=== PATIENT | male | born 1980 | race Caucasian/White ===

== ENCOUNTER 2019-07-09 17:59 | Inpatient (IN) ==
[2019-07-09 18:40] LABS: Basophils # (auto) 0.03 K/uL (0-0.2); Basophils % (auto) 0.2 %; Eosinophils # (auto) 0.26 K/uL (0-0.5); Eosinophils % (auto) 2.1 %; Immature Granulocytes # (auto) 0.05 K/uL (0.00-0.02); Immature Granulocytes % (auto) 0.4 %; Lymphocytes # (auto) 1.75 K/uL (1.2-3.4); Lymphocytes % (auto) 14.4 %; Mean Corpuscular Hgb Conc 34.1 g/dL (32-36); Mean Corpuscular Volume 75.6 fL (80-100); Mean Platelet Volume 8.4 fL (7.4-10.4); Monocytes # (auto) 0.82 K/uL (0.11-0.59); Monocytes % (auto) 6.8 %; Neutrophils # (auto) 9.23 K/uL (1.4-6.5); Neutrophils % (auto) 76.1 %; Platelet Count 283 K/uL (130-400); RDW Standard Deviation 43.8 fL (36.4-46.3); Red Blood Count 5.82 M/uL (4.7-6.1); White Blood Count 12.14 K/uL (4.8-10.8)
--- NOTE | 2019-07-09 18:56 | XRay Report ---
XR chest 2V routine CLINICAL HISTORY: Shortness of breath COMPARISON STUDY: No previous studies for comparison. FINDINGS: There is a large left pleural effusion with associated left lung airspace opacities. There is a suspected 14 mm right middle lung zone pulmonary nodule. There is mild right lung interstitial t hickening. CT scanning is recommended in follow-up.[ IMPRESSION: 1. Large left pleural effusion with associated left lung atelectasis/consolidation 2. Suspected 14 mm right midlung zone pulmonary nodule. CT scanning is recommended in follow-up. Electronically signed by: Nabil Fox M.D. 07/09/2019 6:54 PM
[2019-07-09 18:58] LABS: Alanine Aminotransferase 22 U/L (12-78); Albumin Level 3.4 gm/dl (3.4-5.0); Aspartate Aminotransferase 11 U/L (15-37); BUN Creatinine Ratio 15.3 (10-20); Blood Urea Nitrogen 16 mg/dl (7-18); Calcium 9.2 mg/dl (8.5-10.1); Carbon Dioxide 26 mmol/L (21-32); Chloride 103 mmol/L (98-107); Creatinine Clr Calc Pharmacy 180.4 ml/min; Est GFR (African American) 106.3; Est GFR (Non-African American) 91.7; Glucose 182 mg/dl (70-99); Magnesium 2.4 mg/dl (1.8-2.4); Potassium 3.7 mmol/L (3.5-5.1); Sodium 136 mmol/L (136-145)
[2019-07-09 19:01] LABS: D Dimer 930 ug/L FEU (0-500)
[2019-07-09 19:03] LABS: Albumin Globulin Ratio 0.8 (0.9-2); Alkaline Phosphatase 119 U/L (45-117); Bilirubin,Total 0.4 mg/dl (0.2-1); Globulin 4.3 gm/dl (2.5-4.0); NT Pro B Type Natriuretic Pept 37 pg/ml (0-450); Total Protein 7.7 gm/dl (6.4-8.2); Troponin I < 0.015 ng/ml (0-0.045)
[2019-07-09 19:29] LABS: Lyme Ab IgM w/WB Rflx Negative (Negative)
[2019-07-09 19:30] LABS: Lyme Ab IgG w/WB Rflx Negative (Negative)
[2019-07-09] MEDS ORDERED: OPTIRAY 320 125ml IV PRN (19:51)
--- NOTE | 2019-07-09 20:17 | CT Scan Report ---
CT ANGIOGRAM OF THE CHEST CLINICAL HISTORY: Shortness of breath. Abnormal chest x-ray. Left pleural effusion. COMPARISON STUDY: Chest x-ray dated 07/09/2019 TECHNIQUE: Following the IV administration of 113 mL of Optiray-320, CT angiogram of the thorax was p erformed from the thoracic inlet to the lung bases utilizing the pulmonary embolus protocol. Images a re reviewed in the axial, sagittal, and coronal planes. IV contrast was administered without complica tion. MIP imaging was performed. A dose lowering technique was utilized adhering to the principles o f ALARA. CT DOSE: 3101.63 mGy.cm FINDINGS: No pathologically enlarged axillary mediastinal or hilar lymph nodes were visualized. There was no evidence of thoracic aortic dilatation. There were no pulmonary artery filling defects to indicate acute pulmonary embolism. There is a large left pleural effusion There are greater than 20 right lung pulmonary nodules, the largest of which measures 18 mm. There is left lung compressive atelectasis secondary to the large effusion. This makes evaluation of the left lung parenchyma limited. At least 2 left lung pulmonary nodules are suspected. IMPRESSION: 1. Large left pleural effusion with left lung compressive atelectasis 2. Multiple pulmonary nodules. Metastatic disease is the diagnosis of exclusion. 3. No evidence of acute pulmonary embolism Electronically signed by: Nabil Fox M.D. 07/09/2019 8:15 PM
--- NOTE | 2019-07-09 20:22 | CT Scan Report ---
CT abd pelvis IV con only CLINICAL HISTORY: Possible metastatic disease. Right lung pulmonary nodules. Large left pleural effus ion. Shortness of breath. COMPARISON STUDY: None. TECHNIQUE: Patient was scanned in a dynamic helical fashion during intravenous administration of 113 cc of Optiray 320 A dose lowering technique was utilized adhering to the principles of ALARA. CT DOSE: FINDINGS: Lower chest: There are multiple right lower lobe pulmonary nodules. There is a large left pleural eff usion. Liver: The contrast-enhanced liver is normal in size, contour, and attenuation. There is no intrahepa tic biliary ductal dilatation. The hepatic veins and portal veins are patent. Gallbladder: Surgically absent Spleen: The spleen is enlarged measuring 21 cm. Pancreas: Unremarkable. Adrenal glands: Unremarkable. Kidneys: There is an 8.5 cm lower pole left renal mass. This must be viewed as suspicious for a renal cell carcinoma. There is no hydronephrosis. No right renal lesions are delineated Bowel: There are no transition zones to indicate bowel obstruction. There is colonic diverticulosis. There are no acute peridiverticular inflammatory changes. The appendix appears normal. Peritoneum: There is no intraperitoneal free air or abdominal ascites. Vasculature: The abdominal aorta is normal in course and caliber. Adenopathy: Bilateral iliac chain lymph nodes are the upper limits of normal in size Pelvic viscera: The bladder, and pelvic viscera are unremarkable. Skeletal structures: There is a 3.6 cm destructive L3 lesion with minimal epidural extension. The fin dings are suspicious for a metastatic lesion. IMPRESSION: 1. Large left pleural effusion 2. Multiple right lung pulmonary nodules suspicious for metastatic disease 3. 8.5 cm lower pole left renal mass suspicious for renal cell carcinoma 4. 3.6 cm destructive L3 lesion with minimal epidural extension. The findings are suspicious for a me tastatic deposit Electronically signed by: Nabil Fox M.D. 07/09/2019 8:21 PM
--- NOTE | 2019-07-09 20:27 | CT Scan Report ---
CT lumbar spine wo con CT DOSE: CLINICAL HISTORY: worsening back pain TECHNIQUE: Helical images were acquired in transverse plane. Reformatted sagittal and coronal images were reviewed. A dose lowering technique was utilized adhering to the principles of ALARA. CONTRAST: No contrast was administered COMPARISON STUDY: None. FINDINGS: L1-2 level: There is no evidence of significant disc bulge or focal herniation. There is no evidence of spinal or foraminal stenosis. L2-3 level: There is a minimal circumferential disc bulge. There is no spinal or foraminal stenosis L3-4 level: There is a 3.5 cm L3 lytic focus suspicious for a metastatic deposit. There is minimal ep idural extension. There is minimal spinal canal narrowing. There is no significant foraminal stenosis L4-5 level: There is a prominent posterior disc osteophyte complex. There is moderate spinal stenosis . L5-S1 level: There is a prominent posterior disc osteophyte complex. There is mild spinal canal narro wing. IMPRESSION: 1. 3.5 cm L3 lytic focus suspicious for a metastatic deposit. There is minimal epidural extension 2. Multilevel spondylytic changes with prominent posterior disc osteophyte complexes at the L4-5 and L5-S1 levels Electronically signed by: Nabil Fox M.D. 07/09/2019 8:25 PM
[2019-07-09] MEDS ORDERED: MoRPHine SULFATE 4 MG/ML 1 ML CARP\\VIAL ONE (20:30)
[2019-07-09] MEDS ORDERED: MoRPHine SULFATE 4 MG/ML 1 ML CARP\\VIAL IV PRN (21:21)
[2019-07-09] MEDS ORDERED: PROMETHAZINE HCL 12.5 MG in SODIUM CHLORIDE 0.9% 50 ML IV PRN (21:21)
--- NOTE | 2019-07-09 21:54 | History & Physical Report ---
Date of Service July 09, 2019 Assessment & Plan (1) Metastatic cancer: (2) Pleural effusion: (3) Left-sided back pain: This is a 38-year-old male who has significant past medical history of T2DM, HTN, morbid obesity who presents to [facility] ED secondary to left low back pain x2 months. Patient had trialed 2 months of outpatient conservative treatment with NSAIDs, prednisone, gabapentin, chiropractor and physical therapy. Presents to ED today with significant left low back pain and pronounced shortness of breath x2 days. Work-up in ED revealed a 3.5 cm L3 lytic lesion concerning for metastatic deposit. Given this finding further work-up was obtained. Chest x-ray reveals a large left pleural effusion with compressive atelectasis and multiple right pulmonary nodules. CTA of chest: Revealed greater than 28 right lung pulmonary nodules, largest measuring 18 mm in few left lung pulmonary nodule suspected. Again left large pleural effusion seen. CT abdomen pelvis revealed 8.5 cm left renal mass concerning for renal cell carcinoma. Admit patient to medical floor Consult thoracic/pulmonary for thoracentesis of large left pleural effusion and sent for analysis Obtain adequate pain control Supplemental oxygen as needed Initiate bowel regimen to prevent constipation with narcotic We will need to obtain oncology evaluation Please refer to Dr. Kessler addendum for details regarding assessment and plan (4) Diabetes: A1c 7.1 Recently had been on prednisone taper therefore blood glucose elevated hold metformin and jardiance lantus/novolog per protocol (5) HTN (hypertension): Previously on lisinopril, has since been discontinued secondary to improved blood pressure control per patient Monitor (6) Morbid obesity with BMI of 45.0-49.9, adult: BMI 48.6 Lifestyle modifications (7) DVT prophylaxis: Per Dr. Kessler Disposition: to be determined Follow up: PCP Dr. Black upon discharge Patient was seen and examined in collaboration with Dr. Kessler, please see addendum History of Present Illness Chief Complaint: Left lower back pain x2 months. Primary Care Provider: Terry Black MD This is a 38-year-old male who has significant past medical history of T2DM, HTN, morbid obesity who presents to [facility] ED secondary to left low back pain x2 months. Patient states he has been dealing with constant left low back pain that radiates down the lateral aspect of left leg. Pain is worse with movement, standing or going to sit down, worse at night. He is tried numerous jfxa-wlo-lyrwtlo modalities including NSAIDs, muscle relaxers, chiropractor and PT, lidocaine patches without relief. He denies any numbness or tingling. No loss of bowel or bladder or saddle anesthesia. Over the past 2 days he has notably been getting increasingly short of breath at rest and with exertion and dry cough. Coughing makes pain worse. Denies fever, chills, sweats, lightheadedness, dizziness, syncope, chest pain, palpitations, hemoptysis, nausea, vomiting, diarrhea, dysuria, hematuria, increased urgency or frequency with urination. His appetite is otherwise been normal he denies any weight loss. Allergies Allergy/AdvReac Type Severity Reaction Status Date / Time No Known Allergies Allergy Verified 07/09/19 18:27 Home Medications Home Medications Medication Instructions Recorded Confirmed Type acetaminophen [Tylenol Extra 1,000 mg PO Q6H PRN 06/28/19 07/09/19 History Strength] empagliflozin [Jardiance] 25 mg PO DAILY 06/28/19 07/09/19 History lidocaine [Lidoderm] 1 patch TOP DAILY #10 ea 06/28/19 07/09/19 Rx metformin 1,000 mg PO BID 06/28/19 07/09/19 History cyclobenzaprine 10 mg PO TID PRN 07/09/19 07/09/19 History gabapentin 300 mg PO TID 07/09/19 07/09/19 History ibuprofen 800 mg PO Q8H PRN 07/09/19 07/09/19 History Past Med/Surg History Medical History Morbid obesity with BMI of 45.0-49.9, adult (Chronic) HTN (hypertension) (Chronic) Diabetes (Chronic) Surgical History History of cholecystectomy (Chronic) History of arthroscopic knee surgery (Chronic) Family History Father No problems noted. 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 Physical Exam Physical Exam: Gen: Morbidly obese male, sitting up in bed, dyspneic with conversation, on O2 via nasal cannula, pleasant Head: Normocephalic, Atraumatic Eyes: Sclera normal, no conjunctival injection, PERRLA, EOMI ENT: Gross hearing intact, normal pharynx, mucous membranes moist Neck: supple, no adenopathy, No JVD, no bruit, Resp: Absent breath sounds on left side, right lung clear to auscultation,, no wheeze, rales, rhonchi. 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 Extremities: No edema bilaterally Skin: warm, moist, no rash, negative turgor, cap refill < 2sec Neuro: Alert and oriented x 3, speech normal, good mood/affect, cran nerve 2-12 intact grossly : deferred Results & Data Vital Signs (Past 12 Hours) Vital Signs Temp Pulse Pulse Resp BP BP Pulse Ox 07/09/19 21:12 95 07/09/19 21:00 88 L 07/09/19 20:33 108 H 18 160/97 H 93 07/09/19 18:59 111 H 18 138/101 H 94 07/09/19 18:01 36.4 C L 106 H 22 197/107 H 94 Laboratory Results Short CBC 07/09/19 Range/Units 18:30 WBC 12.14 H (4.8-10.8) K/uL Hgb 15.0 (14.0-18.0) g/dL Hct 44.0 (42-52) % Plt Count 283 (130-400) K/uL BMP 07/09/19 18:30 Sodium 136 Potassium 3.7 Chloride 103 Carbon Dioxide 26 BUN 16 Creatinine 1.03 Glucose 182 H Calcium 9.2 Cardiac Enzymes 07/09/19 Range/Units 18:30 Troponin I < 0.015 (0-0.045) ng/ml Liver Function 07/09/19 Range/Units 18:30 Total Bilirubin 0.4 (0.2-1) mg/dl AST 11 L (15-37) U/L ALT 22 (12-78) U/L Alkaline Phosphatase 119 H (45-117) U/L Albumin 3.4 (3.4-5.0) gm/dl Diagnostic Findings Lumbar Spine CT: IMPRESSION: 1. 3.5 cm L3 lytic focus suspicious for a metastatic deposit. There is minimal epidural extension 2. Multilevel spondylytic changes with prominent posterior disc osteophyte complexes at the L4-5 and L5-S1 levels Chest CTA: IMPRESSION: 1. Large left pleural effusion with left lung compressive atelectasis 2. Multiple pulmonary nodules. Metastatic disease is the diagnosis of exclusion. 3. No evidence of acute pulmonary embolism Abd/pelvis CT: IMPRESSION: 1. Large left pleural effusion 2. Multiple right lung pulmonary nodules suspicious for metastatic disease 3. 8.5 cm lower pole left renal mass suspicious for renal cell carcinoma 4. 3.6 cm destructive L3 lesion with minimal epidural extension. The findings are suspicious for a metastatic deposit CXR: IMPRESSION: 1. Large left pleural effusion with associated left lung atelectasis/consolidation 2. Suspected 14 mm right midlung zone pulmonary nodule. CT scanning is recommended in follow-up. Medications Administered Ioversol (Optiray 320 125ml) 113 ml IV ONCE PRN PRN Reason: Interaction Checking Stop: 07/13/19 19:50 Last Admin: 07/09/19 19:51 Dose: 113 ml Documented by: [id number] Morphine Sulfate (Morphine Sulfate) 4 mg IV Q4H PRN PRN Reason: Pain Stop: 07/23/19 21:20 Last Admin: 07/09/19 21:56 Dose: 4 mg Documented by: [id number] Discontinued Medications Morphine Sulfate (Morphine Sulfate) Confirm Administered Dose 4 mg .ROUTE .STK- MED ONE Stop: 07/09/19 20:31 Last Admin: 07/09/19 20:32 Dose: 4 mg Documented by: [id number] Code Status & VTE Plan Code Status Full Code VTE Prophylaxis Plan VTE Prophylaxis will be ordered: Yes Supervising Physician Co-Signing Physician Notes IM ATTENDING : Patient seen and examined. History obtained from patient and records. Preceding documentation by Ms. Nelli Elena PA-C reviewed. FINAL ASSESSMENT AND PLAN as follows : Acute hypoxemic respiratory failure secondary to left pleural effusion likely malignant given probable L renal malignancy Possible lung mets Back pain secondary to probable spine mets Hypertension, elevated secondary discomfort DM 2, on oral medications, reasonable control as of recent outpatient hemoglobin A1c of 7.25 Mar 2019 Past tobacco abuse Medical telemetry Supplemental O2 Baseline ABG Pulmonary consult in a.m. RE left pleural effusion May need CT surgery, Oncology, Radiation Oncology/Pain Management consultations inpatient. Initiate Fentanyl patch for probable cancer pain given partial response to narcotics given at the ER. Resume prior outpatient lisinopril Rx for BP control basal insulin, ISS BG goal 1 40-1 80, update hemoglobin A1c DVT prophylaxis. SCDs RE possible spinal mets Full code
[2019-07-09 22:07] LABS: Allen Test Pos (Pos); Base Excess ABG -0.4 mEq/L (-9-1.8); HCO3 ABG 24 mmol/L (19-24); Oxygen Saturation ABG 95.6 % (90-95); PCO2 ABG 37 mmHg (35-46); PO2 ABG 76 mm/Hg (80-95); pH ABG 7.43 (7.35-7.45)
[2019-07-09] MEDS ORDERED: LISINOPRIL 5 MG TAB PO ONE (22:22)
[2019-07-09] MEDS ORDERED: fentaNYL 12 MCG/HR TDSY TD SCH (22:30)
[2019-07-09] MEDS: OXYCODONE HCL IR 5 MG TAB (IMMEDIATE RELEASE) PO PRN (22:40)
[2019-07-09] MEDS ORDERED: PROMETHAZINE 12.5 MG/50.5 ML NSS IV ONE (22:57)
[2019-07-10] MEDS ORDERED: GLUCOSE 10 TABS/TUBE PO PRN (00:06)
[2019-07-10] MEDS ORDERED: LORazepam 0.5 MG/1 ML VIAL IV PRN (00:06)
[2019-07-10] MEDS ORDERED: CARBOHYDRATES FOR HYPOGLYCEMIA PO PRN (00:06)
[2019-07-10] MEDS ORDERED: GLUCOSE 40% GEL 15 GM TUBE PO PRN (00:06)
[2019-07-10] MEDS ORDERED: ACETAMINOPHEN 325 MG TAB PO PRN (00:06)
[2019-07-10] MEDS ORDERED: DEXTROSE 50% 50 ML SYRINGE IV PRN (00:06)
[2019-07-10] MEDS ORDERED: GLUCAGON FOR INJ 1 MG VIAL SQ PRN (00:06)
[2019-07-10] MEDS ORDERED: INSULIN GLARGINE SOLOSTAR 100 UNITS/ML 3 ML PEN SQ STA (00:57)
[2019-07-10] MEDS ORDERED: NSS + 20MEQ KCL 20 MEQ/1,000 ML BAG IV SCH (01:00)
[2019-07-10] MEDS: INSULIN ASPART 100 UNITS/ML 3 ML PEN SC SCH ×5 (01:41→21:18)
[2019-07-10] MEDS: fentaNYL 12 MCG/HR TDSY TD SCH (01:42)
--- NOTE | 2019-07-10 02:39 | Emergency Department Note ---
Entered by Diana Aguilar acting as a scribe for Gena Swift DO History of Present Illness General Chief complaint: Back Injury/Pain Stated complaint: SHORTNESS OF BREATH Time Seen by Provider: 07/09/19 18:05 Source: patient History of Present Illness Onset (ago): day(s) 2 Location: left (lung) and right (lung) Radiation: extremity (left leg) Severity: similar to prior episodes Pain Consistency: + other (persistent) Maximum Pain Intensity: 8 Quality: + other (Shortness of breath) Relieved By: + medication (Muscle relaxers, Ibuprofen) and + rest Exacerbated By: + movement Associated symptoms: + shortness of breath and + other (Positive back pain. Negative recent trauma, rhinorrhea, seasonal allergies, tobacco use, pertinent pulmonary history.); no fever/chills The patient is a 38 year old male presenting to the Emergency Department complaining of persistent shortness of breath starting 2 days ago. The patient reports that he is short of breath and that walking around worsens this. He states that when he rests his shortness of breath improves over time. He explains that he sometimes gets the urge to cough. The patient reports that he has back pain that radiates to his left leg that started about 1 month ago. He states that he has experienced this pain before and was in the hospital about 10 days ago for this back pain. He states that when he was in the hospital he received a shot of Prednisone that helped his back pain. He explains that after leaving the hospital he followed up with his PCP who ordered X-Rays that showed a bulging disc. He notes that his PCP prescribed him muscle relaxers and Ibuprofen that has helped with his pain. He adds that this when this pain started he picked up his 20 pound nephew and heard a pop but also heard a second pop before coming to the ED today. The patient reports that he is a diabetic and that his blood sugar has been in the 170s and 180s recently. He denies recent trauma, fevers, chills, rhinorrhea, seasonal allergies, tobacco use and any pertinent pulmonary history. Home Medications Home Medications Medication Instructions Recorded Confirmed Type acetaminophen [Tylenol Extra 1,000 mg PO Q6H PRN 06/28/19 07/09/19 History Strength] empagliflozin [Jardiance] 25 mg PO DAILY 06/28/19 07/09/19 History lidocaine [Lidoderm] 1 patch TOP DAILY #10 ea 06/28/19 07/09/19 Rx metformin 1,000 mg PO BID 06/28/19 07/09/19 History cyclobenzaprine 10 mg PO TID PRN 07/09/19 07/09/19 History gabapentin 300 mg PO TID 07/09/19 07/09/19 History ibuprofen 800 mg PO Q8H PRN 07/09/19 07/09/19 History Allergies Allergy/AdvReac Type Severity Reaction Status Date / Time No Known Allergies Allergy Verified 07/09/19 18:27 Past Med/Surg History Medical History Morbid obesity with BMI of 45.0-49.9, adult (Chronic) HTN (hypertension) (Chronic) Diabetes (Chronic) Surgical History History of cholecystectomy (Chronic) History of arthroscopic knee surgery (Chronic) Family History Father No problems noted. 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 and A total of 10 systems reviewed and were otherwise negative Physical Exam Vital Signs Vital Signs - 24 hr 07/09/19 18:01 07/09/19 18:59 07/09/19 20:33 Temperature 36.4 C L Temperature Source Oral Sepsis Recent Fever Within 48 Hours No Sepsis New/Unexplained Change in Mental Status No Sepsis Action Taken by Nursing No Action Required Pulse Rate 106 H Pulse Rate [Left Apical] 111 H 108 H Pulse Rhythm Regular Pulse Rhythm [Left Apical] Regular Pulse Strength Normal Pulse Strength [Left Apical] Normal Respiratory Rate 22 18 18 Respiratory Effort / Characteristics Non-Labored Spontaneous Non-Labored Respiratory Depth Normal Normal Respiratory Pattern Regular Blood Pressure 197/107 H Blood Pressure [Left Arm] 138/101 H 160/97 H Blood Pressure Mean 137 Blood Pressure Mean [Left Arm] 113 118 Blood Pressure Position Sitting Blood Pressure Position [Left Arm] Pulse Oximetry 94 94 93 Oxygen Delivery Method Room Air Room Air Room Air Oxygen Flow Rate 07/09/19 21:00 07/09/19 21:12 07/09/19 21:56 Temperature Temperature Source Sepsis Recent Fever Within 48 Hours Sepsis New/Unexplained Change in Mental Status Sepsis Action Taken by Nursing Pulse Rate Pulse Rate [Left Apical] 111 H Pulse Rhythm Pulse Rhythm [Left Apical] Pulse Strength Pulse Strength [Left Apical] Respiratory Rate 20 Respiratory Effort / Characteristics Respiratory Depth Respiratory Pattern Blood Pressure Blood Pressure [Left Arm] 142/97 H Blood Pressure Mean Blood Pressure Mean [Left Arm] 112 Blood Pressure Position Blood Pressure Position [Left Arm] Left Lateral Pulse Oximetry 88 L 95 95 Oxygen Delivery Method Room Air Nasal Cannula Nasal Cannula Oxygen Flow Rate 2 2 GENERAL: alert, uncomfortable appearing, well nourished, no distress, non-toxic. EYE EXAM: normal conjunctiva, PERRL and EOM's grossly intact OROPHARYNX: no exudate, no erythema, lips, buccal mucosa, and tongue normal and mucous membranes are moist NECK: supple, no nuchal rigidity, no adenopathy, non-tender LUNGS: Clear to auscultation. Normal chest wall mechanics. No wheezes, rhonchi or rales. HEART: no murmurs, S1 normal and S2 normal ABDOMEN: abdomen soft, non-tender, normo-active bowel sounds, no masses, no rebound or guarding. BACK: Back is symmetrical on inspection and there is no deformity. Pain to palpation over left lateral low back. SKIN: no rashes and no bruising UPPER EXTREMITIES: upper extremities are grossly normal. FROM, nml pulses b/l. LOWER EXTREMITIES: No pitting edema. Normal pulses to lower extremities. Nml pulses b/l. NEURO EXAM: Normal sensorium, cranial nerves II-XII grossly intact, normal speech, no gross weakness of arms, no gross weakness of legs. Course 1805: The patient was evaluated in room B9, and a complete history and physical examination were performed. 2057: I reevaluated the patient at this time. I discussed the patients imaging studies with he and his . 2125: I discussed the patient's case with Dr. Checo dye. He will evaluate the patient for further management. Consultations Consultation #1: I discussed the patient's case with Dr. Checo dye. He will evaluate the patient for further management. Time: 21:26 Administered Medications Fentanyl (Duragesic) 12 mcg TD Q72H LISA Stop: 07/24/19 00:29 Last Admin: 07/10/19 01:42 Dose: 12 mcg Documented by: [id number] Potassium Chloride/Sodium Chloride (Normal Saline W/20 Meq Kcl) 20 meq in 1,000 mls @ 40 mls/hr IV .Q24H LISA Stop: 08/09/19 00:59 Last Admin: 07/10/19 01:40 Dose: 40 mls/hr Documented by: [id number] Insulin Aspart (Novolog Flexpen) 0 units SC ACHS LISA Stop: 08/09/19 00:59 Last Admin: 07/10/19 01:41 Dose: Not Given Documented by: [id number] Oxycodone HCl (Roxicodone Immediate Rel) 5 - 10 mg PO Q4H PRN PRN Reason: Pain Stop: 07/23/19 21:19 Last Admin: 07/09/19 22:40 Dose: 10 mg Documented by: [id number] Discontinued Medications Fentanyl (Duragesic) 12 mcg TD Q3D LISA Stop: 07/23/19 22:29 Last Admin: 07/10/19 01:09 Dose: Not Given Documented by: [id number] Insulin Glargine (Lantus Solostar Pen) 5 units SQ NOW STA Stop: 07/10/19 00:58 Last Admin: 07/10/19 01:39 Dose: 5 units Documented by: [id number] Cosigned by: [id number] Ioversol (Optiray 320 125ml) 113 ml IV ONCE PRN PRN Reason: Interaction Checking Stop: 07/13/19 19:50 Last Admin: 07/09/19 19:51 Dose: 113 ml Documented by: [id number] Lisinopril (Zestril) 2.5 mg PO ONE ONE Stop: 07/09/19 22:23 Last Admin: 07/09/19 23:20 Dose: 2.5 mg Documented by: [id number] Morphine Sulfate (Morphine Sulfate) Confirm Administered Dose 4 mg .ROUTE .STK- MED ONE Stop: 07/09/19 20:31 Last Admin: 07/09/19 20:32 Dose: 4 mg Documented by: [id number] Morphine Sulfate (Morphine Sulfate) 4 mg IV Q4H PRN PRN Reason: Pain Stop: 07/23/19 21:20 Last Admin: 07/09/19 21:56 Dose: 4 mg Documented by: [id number] Promethazine HCl (Phenergan) Confirm Administered Dose 12.5 mg IV .STK-MED ONE Stop: 07/09/19 22:58 Last Admin: 07/09/19 23:04 Dose: 12.5 mg Documented by: [id number] Medical Decision Making Differential Diagnosis Differential diagnoses includes but is not limited to pneumonia, bronchitis, COPD/Asthma exacerbation, pneumothorax, pulmonary embolism, congestive heart failure, acute coronary syndrome amongst others. Medical Records Attestation: I reviewed the patient's medical records. Home Medications Current Medication List: was personally reviewed by me Laboratory Data Attestation: I reviewed the patient's lab results. Result diagrams: 07/09/19 18:30 07/09/19 18:30 Lab Results 07/09/19 07/09/19 07/09/19 Range/Units 18:30 18:30 18:30 WBC 12.14 H (4.8-10.8) K/uL RBC 5.82 (4.7-6.1) M/uL Hgb 15.0 (14.0-18.0) g/dL Hct 44.0 (42-52) % MCV 75.6 L (80-100) fL MCH 25.8 (25-34) pg MCHC 34.1 (32-36) g/dL RDW Std Deviation 43.8 (36.4-46.3) fL RDW Coeff of David 16.0 H (11.5-14.5) % Plt Count 283 (130-400) K/uL MPV 8.4 (7.4-10.4) fL Immature Gran % (Auto) 0.4 % Neut % (Auto) 76.1 % Lymph % (Auto) 14.4 % Sully % (Auto) 6.8 % Eos % (Auto) 2.1 % Baso % (Auto) 0.2 % Immature Gran # (Auto) 0.05 H (0.00-0.02) K/uL Neut # (Auto) 9.23 H (1.4-6.5) K/uL Lymph # (Auto) 1.75 (1.2-3.4) K/uL Sully # (Auto) 0.82 H (0.11-0.59) K/uL Eos # (Auto) 0.26 (0-0.5) K/uL Baso # (Auto) 0.03 (0-0.2) K/uL D-Dimer 930 H* (0-500) ug/L FEU ABG pH (7.35-7.45) ABG pCO2 (35-46) mmHg ABG pO2 (80-95) mm/Hg ABG HCO3 (19-24) mmol/L ABG O2 Saturation (90-95) % ABG Base Excess (-9-1.8) mEq/L Marck Test (Pos) Barometric Pressure mm/Hg Oxygen Given Sodium 136 (136-145) mmol/L Potassium 3.7 (3.5-5.1) mmol/L Chloride 103 (98-107) mmol/L Carbon Dioxide 26 (21-32) mmol/L Anion Gap 7.0 (3-11) BUN 16 (7-18) mg/dl Creatinine 1.03 (0.6-1.4) mg/dl Est Cr Clr Drug Dosing 180.4 ml/min Est GFR ( Amer) 106.3 Est GFR (Non-Af Amer) 91.7 BUN/Creatinine Ratio 15.3 (10-20) Glucose 182 H (70-99) mg/dl Calcium 9.2 (8.5-10.1) mg/dl Magnesium 2.4 (1.8-2.4) mg/dl Total Bilirubin 0.4 (0.2-1) mg/dl AST 11 L (15-37) U/L ALT 22 (12-78) U/L Alkaline Phosphatase 119 H (45-117) U/L Troponin I < 0.015 (0-0.045) ng/ml NT-Pro-B Natriuret Pep 37 (0-450) pg/ml Total Protein 7.7 (6.4-8.2) gm/dl Albumin 3.4 (3.4-5.0) gm/dl Globulin 4.3 H (2.5-4.0) gm/dl Albumin/Globulin Ratio 0.8 L (0.9-2) Lipase 104 (73-393) U/L TSH (0.300-4.500) uIu/ml Lyme Disease IgG Ab (Negative) Lyme Disease IgM Ab (Negative) 07/09/19 07/09/19 07/09/19 Range/Units 18:30 18:30 21:49 WBC (4.8-10.8) K/uL RBC (4.7-6.1) M/uL Hgb (14.0-18.0) g/dL Hct (42-52) % MCV (80-100) fL MCH (25-34) pg MCHC (32-36) g/dL RDW Std Deviation (36.4-46.3) fL RDW Coeff of David (11.5-14.5) % Plt Count (130-400) K/uL MPV (7.4-10.4) fL Immature Gran % (Auto) % Neut % (Auto) % Lymph % (Auto) % Sully % (Auto) % Eos % (Auto) % Baso % (Auto) % Immature Gran # (Auto) (0.00-0.02) K/uL Neut # (Auto) (1.4-6.5) K/uL Lymph # (Auto) (1.2-3.4) K/uL Sully # (Auto) (0.11-0.59) K/uL Eos # (Auto) (0-0.5) K/uL Baso # (Auto) (0-0.2) K/uL D-Dimer (0-500) ug/L FEU ABG pH 7.43 (7.35-7.45) ABG pCO2 37 (35-46) mmHg ABG pO2 76 L (80-95) mm/Hg ABG HCO3 24 (19-24) mmol/L ABG O2 Saturation 95.6 H (90-95) % ABG Base Excess -0.4 (-9-1.8) mEq/L Marck Test Pos (Pos) Barometric Pressure 731.7 mm/Hg Oxygen Given 2L Sodium (136-145) mmol/L Potassium (3.5-5.1) mmol/L Chloride (98-107) mmol/L Carbon Dioxide (21-32) mmol/L Anion Gap (3-11) BUN (7-18) mg/dl Creatinine (0.6-1.4) mg/dl Est Cr Clr Drug Dosing ml/min Est GFR ( Amer) Est GFR (Non-Af Amer) BUN/Creatinine Ratio (10-20) Glucose (70-99) mg/dl Calcium (8.5-10.1) mg/dl Magnesium (1.8-2.4) mg/dl Total Bilirubin (0.2-1) mg/dl AST (15-37) U/L ALT (12-78) U/L Alkaline Phosphatase (45-117) U/L Troponin I (0-0.045) ng/ml NT-Pro-B Natriuret Pep (0-450) pg/ml Total Protein (6.4-8.2) gm/dl Albumin (3.4-5.0) gm/dl Globulin (2.5-4.0) gm/dl Albumin/Globulin Ratio (0.9-2) Lipase (73-393) U/L TSH 0.835 (0.300-4.500) uIu/ml Lyme Disease IgG Ab Negative (Negative) Lyme Disease IgM Ab Negative (Negative) Imaging Data Radiologist's Impression: Radiology results as stated below per my review and the radiologist's interpretation: CT ANGIOGRAM OF THE CHEST CLINICAL HISTORY: Shortness of breath. Abnormal chest x-ray. Left pleural effus ion. COMPARISON STUDY: Chest x-ray dated 07/09/2019 TECHNIQUE: Following the IV administration of 113 mL of Optiray-320, CT angiogram of the thorax was performed from the thoracic inlet to the lung bases utilizing the pulmonary embolus protocol. Images are reviewed in the axial, sagittal, and coronal planes. IV contrast was administered without complication. MIP imaging was performed. A dose lowering technique was utilized adhering to the principles of ALARA. CT DOSE: 3101.63 mGy.cm FINDINGS: No pathologically enlarged axillary mediastinal or hilar lymph nodes were visualized. There was no evidence of thoracic aortic dilatation. There were no pulmonary artery filling defects to indicate acute pulmonary embolism. There is a large left pleural effusion There are greater than 20 right lung pulmonary nodules, the largest of which measures 18 mm. There is left lung compressive atelectasis secondary to the large effusion. This makes evaluation of the left lung parenchyma limited. At least 2 left lung pulmonary nodules are suspected. IMPRESSION: 1. Large left pleural effusion with left lung compressive atelectasis 2. Multiple pulmonary nodules. Metastatic disease is the diagnosis of exclusion. 3. No evidence of acute pulmonary embolism Electronically signed by: Nabil Fox M.D. 07/09/2019 8:[address] lumbar spine wo con CT DOSE: CLINICAL HISTORY: worsening back pain TECHNIQUE: Helical images were acquired in transverse plane. Reformatted sagittal and coronal images were reviewed. A dose lowering technique was utiliz ed adhering to the principles of ALARA. CONTRAST: No contrast was administered COMPARISON STUDY: None. FINDINGS: L1-2 level: There is no evidence of significant disc bulge or focal herniation. There is no evidence of spinal or foraminal stenosis. L2-3 level: There is a minimal circumferential disc bulge. There is no spinal or foraminal stenosis L3-4 level: There is a 3.5 cm L3 lytic focus suspicious for a metastatic deposit. There is minimal epidural extension. There is minimal spinal canal narrowing. There is no significant foraminal stenosis L4-5 level: There is a prominent posterior disc osteophyte complex. There is moderate spinal stenosis. L5-S1 level: There is a prominent posterior disc osteophyte complex. There is mild spinal canal narrowing. IMPRESSION: 1. 3.5 cm L3 lytic focus suspicious for a metastatic deposit. There is minimal epidural extension 2. Multilevel spondylytic changes with prominent posterior disc osteophyte complexes at the L4-5 and L5-S1 levels Electronically signed by: Nabil Fox M.D. 07/09/2019 8:[address] abd pelvis IV con only CLINICAL HISTORY: Possible metastatic disease. Right lung pulmonary nodules. Large left pleural effusion. Shortness of breath. COMPARISON STUDY: None. TECHNIQUE: Patient was scanned in a dynamic helical fashion during intravenous administration of 113 cc of Optiray 320 A dose lowering technique was utilized adhering to the principles of ALARA. CT DOSE: FINDINGS: Lower chest: There are multiple right lower lobe pulmonary nodules. There is a large left pleural effusion. Liver: The contrast-enhanced liver is normal in size, contour, and attenuation. There is no intrahepatic biliary ductal dilatation. The hepatic veins and portal veins are patent. Gallbladder: Surgically absent Spleen: The spleen is enlarged measuring 21 cm. Pancreas: Unremarkable. Adrenal glands: Unremarkable. Kidneys: There is an 8.5 cm lower pole left renal mass. This must be viewed as suspicious for a renal cell carcinoma. There is no hydronephrosis. No right renal lesions are delineated Bowel: There are no transition zones to indicate bowel obstruction. There is colonic diverticulosis. There are no acute peridiverticular inflammatory changes. The appendix appears normal. Peritoneum: There is no intraperitoneal free air or abdominal ascites. Vasculature: The abdominal aorta is normal in course and caliber. Adenopathy: Bilateral iliac chain lymph nodes are the upper limits of normal in size Pelvic viscera: The bladder, and pelvic viscera are unremarkable. Skeletal structures: There is a 3.6 cm destructive L3 lesion with minimal epidural extension. The findings are suspicious for a metastatic lesion. IMPRESSION: 1. Large left pleural effusion 2. Multiple right lung pulmonary nodules suspicious for metastatic disease 3. 8.5 cm lower pole left renal mass suspicious for renal cell carcinoma 4. 3.6 cm destructive L3 lesion with minimal epidural extension. The findings are suspicious for a metastatic deposit Electronically signed by: Nabil Fox M.D. 07/09/2019 8:21 PM XR chest 2V routine CLINICAL HISTORY: Shortness of breath COMPARISON STUDY: No previous studies for comparison. FINDINGS: There is a large left pleural effusion with associated left lung airspace opacities. There is a suspected 14 mm right middle lung zone pulmonary nodule. There is mild right lung interstitial thickening. CT scanning is recommended in follow-up.[ IMPRESSION: 1. Large left pleural effusion with associated left lung atelectasis/consolidation 2. Suspected 14 mm right midlung zone pulmonary nodule. CT scanning is recommended in follow-up. Electronically signed by: Nabil Fox M.D. 07/09/2019 6:54 PM ECG Data Attestation: I personally reviewed and interpreted this ECG as follows: Indication: SOB/dyspnea Rate (beats per minute): 103 Rhythm: sinus tachycardia Findings: + other (Normal axis. Normal intervals. ); no acute ischemic change and no ectopy Comparison ECG Date: no prior available Blood Pressure Blood Pressure Findings: Elevated blood pressure Blood Pressure Disposition: further management by hospitalist CECE Yanez Patient presents here tonight after recent evaluation for low back pain that was followed up by his PCP, now with 2 days of worsening shortness of breath. Patient with no prior pulmonary history and does not use tobacco. Patient's chest x-ray showed new moderate to large left pleural effusion which was co ncerning as patient has no pulmonary or cardiac history. In light of this patient sent for CT imaging of the chest abdomen and pelvis to rule out additional pulmonary pathology as well as potentially identify malignancy. Patient found to have diffuse metastatic disease and likely malignant effusion causing his shortness of breath. No evidence of PE, no evidence of occult pneumonia. Based on CT imaging, primary malignancy appears to have started at the kidney. Patient's other labs reassuring. Patient has not been hypoxic required oxygen while sitting in bed, does appear slight and more dyspneic with any exertion. I discussed all the CT results and need for additional management with the patient and his at bedside. They verbalized understanding and were in agreement with plan for additional hospitalist evaluation. Impression & Plan Dyspnea, Metastatic cancer, Pleural effusion, Left-sided back pain, Diabetes, HTN (hypertension) Discharge Plan Visit Data *Final* Discharge Date/Time: 07/09/19 23:18 Chief Complaint: Back Injury/Pain Stated Complaint: SHORTNESS OF BREATH ED Provider: Gena Swift Discharge Problem: Dyspnea, Metastatic cancer, Pleural effusion, Left-sided back pain, Diabetes, HTN (hypertension) Patient Disposition: Admitted As Inpatient Discharge Instructions Interventions: ED Discharge Assessment Last Done: 07/09/19 23:18 Discharge Problem: Dyspnea Qualifiers: Dyspnea type: dyspnea on exertion Qualified Code(s): R06.09 - Other forms of dyspnea Left-sided back pain Qualifiers: Back pain location: low back pain Chronicity: acute Sciatica presence: with sciatica Sciatica laterality: sciatica of left side Qualified Code(s): M54.42 - Lumbago with sciatica, left side Diabetes Qualifiers: Diabetes mellitus type: type 2 Diabetes mellitus terminologist insulin use: without long-term use Diabetes mellitus complication status: with hyperglycemia Qualified Code(s): E11.65 - Type 2 diabetes mellitus with hyperglycemia HTN (hypertension) Qualifiers: Hypertension type: unspecified secondary hypertension Qualified Code(s): I15.9 - Secondary hypertension, unspecified The scribe's documentation has been prepared under my direction and personally reviewed by me in its entirety. I confirm that the note above accurately reflects all work, treatment, procedures, and medical decision making performed by me.
[2019-07-10 06:06] LABS: Basophils # (auto) 0.03 K/uL (0-0.2); Basophils % (auto) 0.2 %; Eosinophils % (auto) 1.6 %; Hematocrit (blood only) 42.2 % (42-52); Hemoglobin 14.3 g/dL (14.0-18.0); Immature Granulocytes # (auto) 0.04 K/uL (0.00-0.02); Immature Granulocytes % (auto) 0.3 %; Lymphocytes # (auto) 1.64 K/uL (1.2-3.4); Lymphocytes % (auto) 13.4 %; Mean Corpuscular Hgb Conc 33.9 g/dL (32-36); Mean Corpuscular Volume 76.2 fL (80-100); Mean Platelet Volume 8.5 fL (7.4-10.4); Monocytes # (auto) 0.89 K/uL (0.11-0.59); Monocytes % (auto) 7.3 %; Neutrophils # (auto) 9.43 K/uL (1.4-6.5); Neutrophils % (auto) 77.2 %; Platelet Count 268 K/uL (130-400); RDW Coefficient of Variation 16.2 % (11.5-14.5); RDW Standard Deviation 44.8 fL (36.4-46.3); Red Blood Count 5.54 M/uL (4.7-6.1); White Blood Count 12.23 K/uL (4.8-10.8)
[2019-07-10] MEDS: OXYCODONE HCL IR 5 MG TAB (IMMEDIATE RELEASE) PO PRN ×3 (08:55→21:20)
[2019-07-10] MEDS: DOCUSATE SODIUM 100 MG CAP PO SCH (08:56)
[2019-07-10] MEDS: CHECK FENTANYL PATCH PLACEMENT SCH ×3 (08:56→23:50)
[2019-07-10] MEDS: GABAPENTIN 300 MG CAP PO SCH ×3 (08:57→21:16)
[2019-07-10] MEDS ORDERED: LIDOCAINE HCL 1% 20 ML VIAL ONE (10:36)
--- NOTE | 2019-07-10 11:53 | Pulmonary Consultation ---
Date of Consultation July 10, 2019 Assessment & Plan (1) Pleural effusion: The patient has a very large effusion. Dr. Lemus has already done a left thoracentesis with removal of 3000 mL's of bloody fluid. I am certain he has sent this fluid to the laboratory for analysis. The fluid is likely malignant. He has numerous lung nodules that appear to be very suspicious for metastatic disease. One would suspect that the kidney is the primary site based upon the CT of the abdomen findings. Would await the results of the pleural fluid analysis. It is possible he may need repeat thoracentesis in the future or Pleurx catheter. I suspect his dyspnea will improve now that the fluid has been removed. (2) Multiple lung nodules on CT: Await results of pleural fluid analysis. History of Present Illness Attending Physician: Louann Mota MD History of Present Illness Pulmonary consultation is requested regarding shortness of breath and pleural effusion. The patient is a 38-year-old male who has a recent history of back pain. This is been for about 3 or 4 weeks. It was predominantly in the left lower back area with some radiation to the left leg. He went to the emergency room on 06/28/2019. Subsequently the patient developed increasing shortness of breath in the past week or 2. He has been short of breath even at rest. He has been short of breath when lying down. He has had a dry cough recently. When he has the cough he gets pain in the spine. He has not had any mucus production or hemoptysis. He said no chills fevers or sweats. The patient has lost 30 pounds in the past 6 to 8 months but he has been actively trying to lose weight. The patient has never had any pulmonary problems in the past. Specifically there is no history of asthma tuberculosis pneumonia pleurisy or emphysema. The patient has not smoked for approximately 9 years. Prior to that he smoked just socially and not on a regular basis. Alcohol use is rare. Family history is that his mother is living age 65 and is a heavy smoker with some breathing problems. He does not know the medical history of his father. The patient had a chest x-ray that showed a large left pleural effusion. A CAT scan of the chest was done and showed a large left pleural effusion with compressive atelectasis. He was noted to have multiple pulmonary nodules that are very suspicious for metastatic disease. There are greater than 20 nodules on the right side alone with the largest measuring 18 mm. There was no evidence of pulmonary embolic disease. Allergies Allergy/AdvReac Type Severity Reaction Status Date / Time No Known Allergies Allergy Verified 07/09/19 18:27 Home Medications Home Medications Medication Instructions Recorded Confirmed Type acetaminophen [Tylenol Extra 1,000 mg PO Q6H PRN 06/28/19 07/09/19 History Strength] empagliflozin [Jardiance] 25 mg PO DAILY 06/28/19 07/09/19 History lidocaine [Lidoderm] 1 patch TOP DAILY #10 ea 06/28/19 07/09/19 Rx metformin 1,000 mg PO BID 06/28/19 07/09/19 History cyclobenzaprine 10 mg PO TID PRN 07/09/19 07/09/19 History gabapentin 300 mg PO TID 07/09/19 07/09/19 History ibuprofen 800 mg PO Q8H PRN 07/09/19 07/09/19 History Patient History Medical History Morbid obesity with BMI of 45.0-49.9, adult (Chronic) HTN (hypertension) (Chronic) Diabetes (Chronic) Surgical History History of cholecystectomy (Chronic) History of arthroscopic knee surgery (Chronic) Family History Father No problems noted. 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 He has had weight loss as noted. No chills fevers or sweats. Denies daytime somnolence. Neurologic: No syncope or near syncope Ophthalmic: Denied ENT: Denies snoring or nasal congestion. Denies difficulty with sleep at all. Cardiac: Denies anterior chest pain or palpitations Pulmonary: As noted in history of present illness GI: Denies nausea vomiting constipation diarrhea or abdominal pain. : Denies hematuria or other urinary symptoms. Musculoskeletal: Pain in the low back which radiates down the left leg. Increased pain with cough or movement. Dermatologic: No rashes Endocrine: No lymphadenopathy Physical Exam Physical Exam: The patient is a very pleasant 38-year-old male who was cooperative alert and oriented. He was in no distress at rest. Weight is 187.9 kg. The patient is tall at 6 feet 6 inches. Pupils were reactive to light. Nares congested on the left side. Mouth exam shows no erythema or exudate. He has a very large neck. No lymph nodes palpable. Cardiac rate 100/min. Rhythm regular. Blood pressure 127/86. No murmurs or gallops heard. Auscultation of the lung horton revealed decreased breath sounds. This in part is related to the large effusion on the left. He is obese and I believe this diminishes his breath sounds even on the right side. No wheezes rales or rhonchi heard. Respiratory rate 20. Saturation 92% on 3 L nasal cannula. Abdomen was obese. Bowel sounds present. There was no tenderness to palpation, masses, or organomegaly. Extremities showed no cyanosis clubbing or edema. Particularly in the right lower anterior tibial surface are some skin lesions which the patient states came from getting bumped and they have not healed completely peer Results & Data Vital Signs (Past 12 Hours) Vital Signs Temp Pulse Pulse Resp BP Pulse Ox 07/10/19 06:59 36.6 C 102 H 20 127/86 92 07/10/19 04:00 36.7 C 100 H 20 137/89 95 07/10/19 00:06 36.5 C 103 H 110 H 21 159/93 H 91 Laboratory Results White cell count is 12.23. Hemoglobin 14.3. Platelets 268,000. Sodium is 136 potassium 3.7 chloride 103 bicarb 26. BUN 16 with creatinine 1.03. Blood sugar 182. Alk phos elevated at 119. AST and ALT are normal. Bilirubin normal. Albumin 3.4 with globulin 4.3. TSH 0.835. D-dimer was 930. Blood gas showed a pH 7.43 with PCO2 37 and PO2 76. This was done on 2 L. Diagnostic Findings EKG showed a sinus tachycardia. Otherwise EKG was normal. CT of the abdomen and pelvis showed an 8.5 cm lower pole left renal mass suspicious for renal cell carcinoma. There was a 3.6 cm destructive L3 lesion with minimal epidural extension. The findings are suspicious for a metastatic deposit. PG Care Time/CCT Total # of Minutes Spent Total Time Spent with Patient: Total time spent is greater than 50% in c oordination of care (as documented) at patient's floor/unit and/or counseling patient:
--- NOTE | 2019-07-10 11:56 | XRay Report ---
XR chest 1V portable HISTORY: S/P Thoracentesis COMPARISON: Chest 07/09/2019. FINDINGS: Decrease in size in the small to moderate left pleural effusion. No definite pneumothorax o n this portable study. Left base airspace opacities are again noted. The heart remains mildly enlarge d. There is mild central pulmonary vascular congestion without overt edema. Multiple pulmonary nodule s are again noted. IMPRESSION: Decrease in size in the [id number]-[id number] left pleural effusion status post thoracentesis. No definit e pneumothorax. Left basilar densities are again noted. Electronically signed by: Marco Antonio Alonso M.D. 07/10/2019 11:55 AM
[2019-07-10] MEDS: MoRPHine SULFATE 4 MG/ML 1 ML CARP\\VIAL IV PRN (12:17)
--- NOTE | 2019-07-10 12:43 | Hospitalist Progress Note ---
Date of Service July 10, 2019 Assessment & Plan (1) Pleural effusion: Present on admission with worsening SOB and back pain Possible related to malignancy CTA chest on admission showed large left pleural effusion with left lung compressive atelectasis CXR showed Large left pleural effusion with associated left lung atelectasis/consolidation Case discussed with thoracic surgery Dr. Lemus who just had thoracentesis done where 3L pleural fluid removed and sent for diagnostic CXR post thoracentesis done showed decrease in size in the [id number] left pleural effusion Pulmonology on board Continue monitor closely (2) Multiple lung nodules on CT: CTA chest showed more than 20 right lung pulmonary nodules, the largest of which measures 18 mm Pleural fluid sent for pathology Pulmonology on idalmis (3) Left-sided back pain: Presents to ED today with significant left low back pain and pronounced shortness of breath x2 days. CT lumbar spine showed 3.5 cm L3 lytic lesion concerning for metastatic deposit. Continue pain controlled (4) Left renal mass: CT abd/pelvis showed 8.5 cm lower pole left renal mass suspicious for renal cell carcinoma Will consult urology for possible biopsy Will need oncology follow up if diagnosed with any type of cancer (5) Diabetes: A1c 7.1 Recently had been on prednisone taper therefore blood glucose elevated Continue to hold metformin and jardiance lantus/novolog per protocol (6) HTN (hypertension): BP stable Continue monitor BP (7) Morbid obesity with BMI of 45.0-49.9, adult: BMI 48.6 Counseling on Lifestyle modifications (8) DVT prophylaxis: SCDs/Will encourage him to ambulate If stays in the hospital for more days, comsider to anticoagulant for dvt px CODE STATUS FULL CODE Subjective Pt was seen and examined Lying in bed with no distress Pt said that his abdominal pain slightly improves He said that he does have SOB with exertion He denies any hematuria or urinary discomfort Denies any chest pain, palpitation, dizziness Physical Exam Physical Exam: General- No acute distress, obese Head- atraumatic Eyes- PERRL, EOMI, ENT- oropharynx clear Neck- supple, no JVD Lungs- Diminished BS Heart- regular rhythm; no murmur Abdomen- normal bowel sounds, soft, nontender Extremities- no calf tenderness Neuro- alert, oriented x 3; PERRL, EOMI; no facial palsy; no dysarthria Skin- warm & dry Results & Data Vital Signs (Past 12 Hours) Vital Signs Temp Pulse Resp BP Pulse Ox 07/10/19 06:59 36.6 C 102 H 20 127/86 92 07/10/19 04:00 36.7 C 100 H 20 137/89 95 (1) Diabetes Diabetes mellitus complication status: with hyperglycemia 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
[2019-07-10 13:05] LABS: Appearance Pleural Fluid BLOODY; Color Pleural Fluid RED; Mononuclear WBC Pleural 59.3 %; Polynuclear WBC Pleural 40.7 %; RBC Pleural Fluid (A) 48000 /uL; Source Pleural Fluid LEFT LUNG; WBC Pleural Fluid (A) 585 /uL
[2019-07-10 14:33] LABS: Glucose Pleural Fluid 158 mg/dl
[2019-07-10 14:46] LABS: Amylase Pleural Fluid 9 U/L; LDH Pleural Fluid 138 U/L; Total Protein Pleural Fluid 5.1 g/dl
--- NOTE | 2019-07-10 19:16 | Urology Consultation ---
Date of Consultation July 10, 2019 Assessment & Plan (1) Left renal mass: Large left renal mass 8.5 cm on lower pole largely endophytic. No obvious local invasion, no significant dilation of renal vein or vena cava after reviewing image. Multiple lung nodules with large left pleural effusion and lesion on T3 of spinal column. Discussed RCC as poss diagnosis with mets to lung and bone. Discussed management of large renal mass. Discussed place of cytoreductive nephrectomy for RCC with possible resection of met disease. Discussed options for systemic therapy. discussed targeted and immunotherapy for RCC with mets. Discussed combination therapy and clinical options. Recommend Oncology assessment. Patient young with minimal comorbidities largely related to morbid obesity. Would potentially be candidate for Systemic therapy. Likely will need assessment with Spinal surgery especially if neurologic issues begin to develop. Concern that if tumor compression at spinal cord develops could have significant issues due to location. May also need biopsied if not resecting. Await pathology from pleural fluid. Discussed further imaging options. Will need to confirm no venous thrombus. Need to reassess left lung now that decompressed. For now, will work toward setting up option for possible cytoreduction. Will await consultants and plan to discuss options. Did discuss radical hand assist laparoscopic left nephrectomy with lymph node dissection and surgical approaches for management if he decides to proceed. Approx 30 minutes discussing with patient and family. Will continue to watch through weekend. History of Present Illness Attending Physician: Louann Mota MD History of Present Illness Patient with shortness of breath and significant back pain. Worked up for PE and found to have large plueral effusion with possible met disease to lung and nodule on T3 of spine. Imaging of abd found 8.5 cm mass of the left kidney. Nearly completely endophytic with likely central necrosis. Patient previously had no major issues. Does deal with obesity issues and HTN. no significant family history but is largely unaware of father's family history or personal history. No bleeding. no severe issues. intermittent pain in back prior. No leg weakness. No new changes in mentation or other issues. no other major concerns. had thoracocentesis with CT surgery for large left pleural effusion and pending pathology on fluid. With family at bedside. Allergies Allergy/AdvReac Type Severity Reaction Status Date / Time No Known Allergies Allergy Verified 07/09/19 18:27 Home Medications Home Medications Medication Instructions Recorded Confirmed Type acetaminophen [Tylenol Extra 1,000 mg PO Q6H PRN 06/28/19 07/09/19 History Strength] empagliflozin [Jardiance] 25 mg PO DAILY 06/28/19 07/09/19 History lidocaine [Lidoderm] 1 patch TOP DAILY #10 ea 06/28/19 07/09/19 Rx metformin 1,000 mg PO BID 06/28/19 07/09/19 History cyclobenzaprine 10 mg PO TID PRN 07/09/19 07/09/19 History gabapentin 300 mg PO TID 07/09/19 07/09/19 History ibuprofen 800 mg PO Q8H PRN 07/09/19 07/09/19 History Patient History Medical History Morbid obesity with BMI of 45.0-49.9, adult (Chronic) HTN (hypertension) (Chronic) Diabetes (Chronic) Surgical History History of cholecystectomy (Chronic) History of arthroscopic knee surgery (Chronic) Family History Father No problems noted. 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 He has had weight loss as noted. No chills fevers or sweats. Denies daytime somnolence. Neurologic: No syncope or near syncope Ophthalmic: Denied ENT: Denies snoring or nasal congestion. Denies difficulty with sleep at all. Cardiac: Denies anterior chest pain or palpitations Pulmonary: As noted in history of present illness GI: Denies nausea vomiting constipation diarrhea or abdominal pain. : Denies hematuria or other urinary symptoms. Musculoskeletal: Pain in the low back which radiates down the left leg. Increased pain with cough or movement. Dermatologic: No rashes Endocrine: No lymphadenopathy Physical Exam Constitutional: well developed, well nourished, + morbidly obese and + obese; not ill appearing and no altered mental status Eyes: eyes not dysmorphic, no conjunctival abnormality and no scleral abnormality ENMT: Ears: no hearing impairment and no external ear abnormality Nose: no external nose abnormality Neck: normal visual inspection and trachea midline; no tracheal deviation Respiratory: normal respiratory effort; no respiratory distress, no labored breathing and does not use accessory muscles Cardiovascular: Rate/Rhythm: not tachycardic Gastrointestinal (Abdomen): Inspection/Auscultation: abdomen not distended Percussion/Palpation: abdomen soft; no guarding Musculoskeletal: Head/Neck/Chest: normocephalic and head atraumatic; full ROM of neck Extremities: full ROM of extremities Skin: no rashes and no ulcers Neurologic: CN's II-XI intact bilaterally and awake; not confused Motor/Sensory: no tremor and normal movement Gait: no staggering gait Psychiatric: Orientation: alert and oriented x 3 Apperance: appropriately dressed Eye Contact: good eye contact Motor Behavior: steady gait and station Affect: + depressed affect Genitourinary: no CVA tenderness Lymphatic: no lymphadenopathy Results & Data Vital Signs (Past 12 Hours) Vital Signs Temp Pulse Pulse Resp BP BP Pulse Ox 07/10/19 16:48 93 H 07/10/19 15:00 36.9 C 93 H 20 144/65 H 94 07/10/19 06:59 36.6 C 102 H 20 127/86 92 PG Care Time/CCT Total # of Minutes Spent Total Time Spent with Patient: Total time spent is greater than 50% in coordination of care (as documented) at patient's floor/unit and/or counseling patient:
--- NOTE | 2019-07-10 19:54 | Hospitalist Progress Note ---
Date of Service July 10, [address] Patton ([facility] oncologist on-call) on the request of Dr. Cochran of Urology. Dr. Patton recommends Radiation Oncology consultation as well. Will relay to AM provider. Results & Data Vital Signs (Past 12 Hours) Vital Signs Temp Pulse Pulse Resp BP BP Pulse Ox 07/10/19 19:36 36.8 C 99 H 18 121/79 90 07/10/19 16:48 93 H 07/10/19 15:00 36.9 C 93 H 20 144/65 H 94
[2019-07-10] MEDS: INSULIN GLARGINE SOLOSTAR 100 UNITS/ML 3 ML PEN SQ SCH (21:17)
[2019-07-10] MEDS: LISINOPRIL 2.5 MG TAB PO SCH (21:17)
[2019-07-10] MEDS ORDERED: POLYETHYLENE (MIRALAX) 17 GM PACK PO PRN (21:28)
--- NOTE | 2019-07-10 22:03 | Operative Report ---
DATE OF OPERATION: 07/10/2019 PREOPERATIVE DIAGNOSIS: Large left pleural effusion. POSTOPERATIVE DIAGNOSIS: Large left pleural effusion. PROCEDURE: Ultrasound-guided left thoracentesis. SURGEON: Myles Lemus MD. FAST FOOD SUPERVISOR: None. ANESTHESIA: Local. SPECIFICS OF PROCEDURE: The patient in a seated position, I used a CVP catheter and attempted to access his pleural cavity, but he is too large and the needle was not long enough. For this reason, I aborted this and then guided a thoracentesis catheter. I then used the ultrasound and found a good spot, although it was a bit difficult given his size. I had to go a little bit more lateral. After prepped and draped in usual sterile fashion and calling appropriate timeout, a 25-gauge needle with 1% Xylocaine was used to raise a skin wheal. A small stevo was made in the skin and a large catheter was then placed through this and I was able to come down and meet the rib. I went just above it. I then slid the catheter over the needle, removed the needle. We then attached this to a suction device and drained 3 liters of a rust-colored fluid before the patient had some coughing. I then removed this. He had no bleeding. I put an antimicrobial dressing. Chest x-ray is pending at this time. He tolerated it pretty well. His and Dr. Pan were in the room during this procedure. I attest to the content of the Intraoperative Record and any orders documented therein. Any exception s are noted below.
--- NOTE | 2019-07-10 22:03 | Consultation Report ---
DATE OF CONSULTATION: 07/10/2019 REASON FOR CONSULTATION: Large left pleural effusion. HISTORY OF PRESENT ILLNESS: Kevan Almendarez is a very nice, but huge 38-year-old male who stands 6 feet 6 inches tall and weighs 420 pounds. The patient noted for shortness of breath for the last couple days, was having back pain, was admitted last night where he was found to have apparent lytic lesions in his back and had a large left pleural effusion. I was asked to evaluate him for a thoracentesis. The patient states he has lost a few pounds, but he is huge. It is hard to say. He has had shortness of breath. He denies fevers, chills or productive cough. He does have a history of adult-onset diabetes and hypertension. PAST MEDICAL HISTORY: 1. Morbid obesity. 2. Hypertension. 3. Diabetes mellitus. 4. Remote history of very light cigarette smoking. 5. It is apparent renal cell carcinoma with metastases. PAST SURGICAL HISTORY: 1. Cholecystectomy. 2. Arthroscopic knee surgery. MEDICATIONS: 1. Lidocaine patch. 2. Jardiance. 3. Metformin. 4. Cyclobenzaprine. 5. Gabapentin. 6. Ibuprofen. 7. Acetaminophen. ALLERGIES: No known drug allergies. SOCIAL HISTORY: The patient is originally from [place]. 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 He has been to his for 9 years. They have no children. They live in [place] now. He is in [employer]. He does not smoke. He states that he smoked lightly and his states he was never really smoker. He does not use alcohol. FAMILY MEDICAL HISTORY: The patient's father , but he does not know why. He did not really know him. His mother is a heavy smoker, but is alive and well. REVIEW OF SYSTEMS: The patient feels that he has lost a bit of weight. He is having low back pain for the last 2 months on the left side. This is constant and it does affect the lateral left leg. Coughing or moving hurts it. He denies any GI or symptoms. I became short of breath just the last 2 days. He denies palpitations or chest pain. He has had no diarrhea. He has had no skin breakdown. He denies any joint effusions. He has had no visual or auditory symptoms. PHYSICAL EXAMINATION: GENERAL: This is an absolutely massive 6 feet 6, 420-pound male who is awake, alert and oriented. He wears glasses. HEENT: His extraocular movements are intact. Pupils are equal, round and reactive. Sclerae are anicteric. He is conversive. He is having no respiratory difficulties, but he is on supplemental oxygen. His tongue is midline. Teeth in good repair. NECK: Thick, but supple. I detect no supraclavicular or cervical lymphadenopathy. He has markedly decreased breath sounds on the left. He has no tracheal deviation or neck vein distention. HEART: He has a regular rate and rhythm of his heart with distant heart sounds. ABDOMEN: Huge. I detect no obvious ascites, but it was difficult given his girth. MUSCULOSKELETAL: He has good range of motion and good pulses distally. He has no joint effusions. NEUROLOGIC: Completely intact. ASSESSMENT AND PLAN: Apparent renal cell carcinoma with metastases. He has pulmonary metastases and a large left pleural effusion. We are going to offer him a pleural tap for diagnosis and to ease his breathing.
[2019-07-11] MEDS: OXYCODONE HCL IR 5 MG TAB (IMMEDIATE RELEASE) PO PRN ×5 (01:30→19:57)
[2019-07-11] MEDS: MoRPHine SULFATE 4 MG/ML 1 ML CARP\\VIAL IV PRN (04:37)
[2019-07-11] MEDS: CHECK FENTANYL PATCH PLACEMENT SCH ×3 (08:35→23:11)
[2019-07-11] MEDS: GABAPENTIN 300 MG CAP PO SCH ×3 (08:36→19:59)
[2019-07-11] MEDS: DOCUSATE SODIUM 100 MG CAP PO SCH (08:36)
[2019-07-11] MEDS: INSULIN ASPART 100 UNITS/ML 3 ML PEN SC SCH ×4 (08:39→23:10)
--- NOTE | 2019-07-11 09:24 | Pulmonology Progress Note ---
Date of Service July 11, 2019 Assessment & Plan (1) Pleural effusion: The patient has a very large effusion. Dr. Lemus has already done a left thoracentesis with removal of 3000 mL's of bloody fluid. The fluid is likely malignant. He has numerous lung nodules that appear to be very suspicious for metastatic disease. One would suspect that the kidney is the primary site based upon the CT of the abdomen findings. Would await the results of the pleural fluid analysis. It is possible he may need repeat thoracentesis in the future or Pleurx catheter. The patient is very hypoxic with minimal exertion. I am suggesting that we put some oxygen in his room with a pull cart that he could use to walk in the hallway when he and his wish to walk. I do encourage ambulation. Would set the portable O2 at 3 L. We will order a repeat chest x-ray for Saturday. I suspect Dr. Lemus may need to do a repeat tap or even put a Pleurx catheter in. In light of the fact the patient has numerous pulmonary nodules, more than 20 nodules in the right lung alone, I do not think resection of the nodules would be indicated. (2) Multiple lung nodules on CT: Await results of pleural fluid analysis. Subjective The patient has had improvement since removal of 3000 ml left pleural fluid. He has much less sob. He has less pleuritic pain but he still has some pleuritic pain. The back pain is a little better. His cough resolved yesterday approximately 1 hour post thoracentesis. He was seen by urology yesterday and they are planning on surgery. Physical Exam Physical Exam: The patient is a 38-year-old male who was cooperative alert and oriented. He was in no distress at rest. The patient had been walking a bit in the hallway. He did not appear short of breath at the time. I did check a pulse oximetry immediately after walking and his saturations were down to 80%. I verified with another pulse oximeter that this was accurate. His saturations returned to 90% and approximately 3 or 4 minutes. Weight today listed as 184.5 kg which is 3.5 kg less than yesterday. The fluid removal alone would approximately account for this. Temperature is 37 degrees. There is been no fevers. Pupils were reactive to light. Nares mildly congested. Mouth exam unremarkable. He has a very large neck. No lymph nodes palpable. Cardiac rate 90/min. Rhythm regular with an occasional extrasystole. Blood pressure 116/65. Respiratory rate 16 breaths/min and not labored. Auscultation of the lung field still reveals significantly decreased breath sounds diffusely but especially in the left lower chest. Tubular breath sounds are still heard on the left base. Extremities showed no cyanosis clubbing or edema. Results & Data Vital Signs (Past 12 Hours) Vital Signs Temp Pulse Pulse Pulse Resp BP BP 07/11/19 07:33 37.0 C 90 16 116/65 07/11/19 04:00 37.0 C 80 18 108/72 07/11/19 02:11 97 H 07/10/19 23:43 37.4 C 91 H 18 111/67 Pulse Ox 07/11/19 07:33 92 07/11/19 04:00 93 07/11/19 02:11 07/10/19 23:43 91 Laboratory Results Blood sugar today 140. Pleural fluid protein is elevated at 5.1. This is consistent with an exudate. Pleural fluid LDH is 138. Pleural glucose is 158. Pleural amylase is 9. Pleural RBC was elevated at 48,000. Pleural fluid cytology is pending. Diagnostic Findings Chest x-ray done post thoracentesis showed residual opacification in the left lower chest likely representing small to moderate left effusion with probable atelectasis. PG Care Time/CCT Total # of Minutes Spent Total Time Spent with Patient: Total time spent is greater than 50% in coordination of care (as documented) at patient's floor/unit and/or counseling patient:
--- NOTE | 2019-07-11 12:04 | Hospitalist Progress Note ---
Date of Service July 11, 2019 Assessment & Plan (1) Left renal mass: Probable metastatic left renal malignancy, newly diagnosed -CT abd/pelvis showed 8.5 cm lower pole left renal mass suspicious for renal cell carcinoma. -CT scan shows multiple lung nodules more than 20 right lung nodules, largest 18 mm, with large left pleural effusion, lesion on T3 of spinal column. -CT lumbar spine showed 3.5 cm L3 lytic lesion concerning for metastatic deposit. -Consulted Urology - recommends oncology consult. Would potentially be candidate for systemic therapy/possible cytoreduction. Will eventually need nephrectomy -Follow up pleural fluid pathology. (2) Pleural effusion: Presented on admission with worsening SOB and back pain Possibly secondary to malignancy, pleural fluid cytology pending -CTA chest on admission showed large left pleural effusion with left lung compressive atelectasis -CXR showed Large left pleural effusion with associated left lung atelectasis/consolidation -S/P Left pleural thoracentesis with 3 L of fluid removal on -CXR post thoracentesis done showed decrease in size in the [id number] left pleural effusion -Pulmonology on board -Continue monitor closely (3) Hypoxia: Oxygen 2 L as dropped SaO2 to 70s on ambulation -Morbid Obesity, OHS contributing. Never diagnosed with IFTIKHAR -Wean as tolerated -May consider nocturnal pulse oximetry (4) Diabetes: A1c 7.1 -Recently had been on prednisone taper therefore blood glucose elevated -Continue to hold metformin and jardiance -lantus/novolog per protocol (5) HTN (hypertension): BP stable -Continue monitor BP (6) Morbid obesity with BMI of 45.0-49.9, adult: BMI 48.6 -Counseling on Lifestyle modifications (7) DVT prophylaxis: -SCDs/Will encourage him to ambulate -If stays in the hospital for more days, comsider to anticoagulant for dvt px CODE STATUS FULL CODE DISPOSITION Medical mx in progress Awaiting pleural fluid pathology results, oncology evaluation Updated by bedside. Subjective Patient is feeling better after removal of 3 L fluid from left side. Still has left flank pain. Denies any SOB, Cough, abdominal pain, nausea, vomiting Physical Exam Physical Exam: GENERAL- AAOX3, No acute distress; Morbidly obese + LUNGS- Air entry bilaterally equal. No rales, rhonchi, crackles, wheezes heard. HEART- Regular rate and rhythm. No murmurs ABDOMEN- Left flank tenderness, Soft, non tender, non distended, Bowel sounds heard. EXTREMITIES- Good peripheral pulses, no edema Results & Data Vital Signs (Past 12 Hours) Vital Signs Temp Pulse Pulse Resp BP BP Pulse Ox 07/11/19 07:33 37.0 C 90 16 116/65 92 07/11/19 04:00 37.0 C 80 18 108/72 93 07/11/19 02:11 97 H (1) Diabetes Diabetes mellitus complication status: with hyperglycemia Diabetes mellitus penitentiary insulin use: without penitentiary 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
--- NOTE | 2019-07-11 14:05 | Urology Progress Note ---
Date of Service July 11, 2019 Assessment & Plan (1) Left renal mass: Oncology to see. Imaging ordered Large left renal mass 8.5 cm on lower pole largely endophytic. No obvious local invasion, no significant dilation of renal vein or vena cava after reviewing image. Multiple lung nodules with large left pleural effusion and lesion on L3 of spinal column with close proximity to spinal cord/nerve roots. Another long conversation with patient and family. Reviewed RCC as poss diagnosis with mets to lung and bone. Discussed management of large renal mass. Discussed place of cytoreductive nephrectomy for RCC with possible resection of met disease. Discussed options for systemic therapy. discussed targeted and immunotherapy for RCC with mets. Discussed combination therapy and clinical options. Specifically discussed systemic target therapy vs cytoreductive nephrectomy as initial treatment. Patient is young with excelled performance status and minimal comorbidities. Discussed advanced metastatic disease management. Discussed current guidelines, standards, therapies, and also newer protocols and options. Discussed effectiveness of cytoreductive nephrectomy and need to debulk >75% of disease for best results. Discussed issues related to multiple small met in lung. Will need to confirm only solitary spinal lesion. Major consideration taken for spinal lesion. Due to location and proximity to nerve concern for development of neuologic issues including cauda equina syndrome. Systemic therapy may be needed upfront to address this spinal lesion due to risk. Imaging of chest ordered to assess lung after thoracentesis. Abd/pelvis to assess vasculature and to determine any thrombus. Bone scan due to elevated Alk Phos and known spinal lesion to assess for further disease in bone. Will need to consider MRI of head to assess for lesions and possibly spinal column to better assess mass location to nerve. Will hold until Oncology assessed. If proceeding with systemic therapy, may need Nephrectomy as some point to remove left renal mass. Currently great renal function. Does not appear to be able to have partial nephrectomy as largely endophytic and majority of lower pole kidney on left. Shortly discussed need for confirmation of pathology. Awaiting cytology results. If inconclusive may need other biopsy. If not obviously RCC, may need workup for other possible sources. Will continue to be actively involved in care. Subjective Patient better pain controlled today. tolerating diet. No severe issues. no neurologic changes. no issues with bowel or bladder. Scans ordered including bone scan. Patient with multiple questions. Family bedside to discuss issues. Has not seen oncology yet. Plan to monitor for now with anticipation of intervention in near future. Cytology from pleural fluid pending. Review of Systems Review of Systems: General: Energy level has been down recently. He has had weight loss as noted. No chills fevers or sweats. Denies daytime somnolence. Neurologic: No syncope or near syncope Ophthalmic: Denied ENT: Denies snoring or nasal congestion. Denies difficulty with sleep at all. Cardiac: Denies anterior chest pain or palpitations Pulmonary: As noted in history of present illness GI: Denies nausea vomiting constipation diarrhea or abdominal pain. : Denies hematuria or other urinary symptoms. Musculoskeletal: Pain in the low back which radiates down the left leg. Increased pain with cough or movement. Dermatologic: No rashes Endocrine: No lymphadenopathy Physical Exam Constitutional: well developed, well nourished, + morbidly obese and + obese; not ill appearing and no altered mental status Eyes: eyes not dysmorphic, no conjunctival abnormality and no scleral abnormality ENMT: Ears: no hearing impairment and no external ear abnormality Nose: no external nose abnormality Neck: normal visual inspection and trachea midline; no tracheal deviation Respiratory: normal respiratory effort; no respiratory distress, no labored breathing and does not use accessory muscles Cardiovascular: Rate/Rhythm: not tachycardic Gastrointestinal (Abdomen): Inspection/Auscultation: abdomen not distended Percussion/Palpation: abdomen soft; no guarding Musculoskeletal: Head/Neck/Chest: normocephalic and head atraumatic; full ROM of neck Extremities: full ROM of extremities Skin: no rashes and no ulcers Neurologic: CN's II-XI intact bilaterally and awake; not confused Motor/Sensory: no tremor and normal movement Gait: no staggering gait Psychiatric: Orientation: alert and oriented x 3 Apperance: appropriately dressed Eye Contact: good eye contact Motor Behavior: steady gait and station Affect: + depressed affect Genitourinary: no CVA tenderness Lymphatic: no lymphadenopathy Results & Data Vital Signs (Past 12 Hours) Vital Signs Temp Pulse Pulse Resp BP BP Pulse Ox 07/11/19 07:33 37.0 C 90 16 116/65 92 07/11/19 04:00 37.0 C 80 18 108/72 93 07/11/19 02:11 97 H PG Care Time/CCT Total # of Minutes Spent Total Time Spent with Patient: Total time spent is greater than 50% in coordination of care (as documented) at patient's floor/unit and/or counseling patient:
[2019-07-11] MEDS ORDERED: IOVERSOL 100ml IV PRN (14:46)
--- NOTE | 2019-07-11 15:09 | CT Scan Report ---
CT OF THE CHEST WITH IV CONTRAST CLINICAL HISTORY: Metastatic renal cell carcinoma COMPARISON STUDY: CT angiography chest dated 07/09/2019 TECHNIQUE: Following the IV administration of 93 mL of Optiray-320, CT of the thorax was performed f rom the thoracic inlet to the lung bases. Images are reviewed in the axial, sagittal, and coronal segundo nydia. IV contrast was administered without complication. A dose lowering technique was utilized adher ing to the principles of ALARA. CT DOSE: 3298.43 mGycm FINDINGS: Thyroid: Imaged portions of the thyroid gland are normal in appearance. Thoracic aorta: The thoracic aorta is normal in course and caliber, noting standard 3-vessel arch ginna rylee. No aneurysm or dissection is seen. Pulmonary vasculature: The pulmonary trunk is normal in caliber. There are no central filling defects identified to suggest pulmonary embolus. Note that this examination was not protocoled for the evalu ation of pulmonary emboli. HEART: The heart is normal in size and configuration, without pericardial effusion. Lungs and pleural spaces: There is slight interval decrease in the size of the large left pleural eff usion. There is no pneumothorax status post thoracentesis. There are innumerable bilateral pulmonary nodules consistent with metastatic disease. These appear similar to the preceding study. There is lef t lung compressive atelectasis. Mediastinum: There is no mediastinal lymphadenopathy. Mindy: There is no evidence of pathologic hilar adenopathy Axilla: There is no evidence of pathologic axillary lymphadenopathy Upper abdomen: Partially visualized upper abdominal viscera is within normal limits. Skeletal structures: There are no lytic or blastic osseous lesions. IMPRESSION: 1. Slight interval decrease in the size of a left pleural effusion status post thoracentesis 2. No evidence of pneumothorax 3. Innumerable bilateral pulmonary nodules consistent with metastatic disease 4. Left lung compressive atelectatic changes Electronically signed by: Nabil Fox M.D. 07/11/2019 3:07 PM
--- NOTE | 2019-07-11 15:17 | CT Scan Report ---
CT abdomen with contrast CLINICAL HISTORY: Met Cancer. Large renal mass. Assess Renal Vein COMPARISON STUDY: 07/09/2019 TECHNIQUE: The patient was scanned in a dynamic helical fashion during intravenous administration of 93 cc of Optiray 320. A dose lowering technique was utilized adhering to the principles of ALARA. CT DOSE: FINDINGS: Lower chest: There is a large left pleural effusion. There are multiple right lung nodules consistent with metastatic disease Liver: The contrast-enhanced liver is normal in size, contour, and attenuation. There is no intrahepa tic biliary ductal dilatation. The hepatic veins and portal veins are patent. Gallbladder: Surgically absent Spleen: Enlarged measuring 21 cm Pancreas: Unremarkable. Adrenal glands: Unremarkable. Kidneys: There is a 9 cm solid left renal mass suspicious for a renal cell carcinoma. Renal vein opac ification is poor in part secondary to the patient's large body habitus. There is no definite renal v ein involvement. If further assessment of the renal vein is desired, an MRI would be considered the t est of choice in follow-up there is collecting system distortion secondary to the large left renal ma ss. No collecting system filling defects are visualized Bowel: There are no transition zones indicate bowel obstruction. Peritoneum: There is no intraperitoneal free air or abdominal ascites. Vasculature: The abdominal aorta is normal in course and caliber. Adenopathy: Bilateral iliac chain lymph nodes are the upper limits of normal in size. Pelvic viscera: The bladder, and pelvic viscera are unremarkable. Skeletal structures: There is a 37 mm destructive L3 lesion with minimal anterior epidural extension. The findings are consistent with a metastatic deposit. IMPRESSION: 1. Large left pleural effusion 2. Multiple pulmonary nodules consistent with metastatic disease 3. 9 cm solid left renal mass consistent with a renal cell carcinoma 4. Suboptimal opacification of the renal vein. No definite renal vein involvement. If further assessm ent of the renal vein is deemed clinically necessary, an MRI would be considered the test of choice i n follow-up 5. 37 mm destructive L3 lesion with minimal anterior epidural extension. The findings are consistent with metastatic deposit Electronically signed by: Nabil Fox M.D. 07/11/2019 3:16 PM
[2019-07-11] MEDS: LISINOPRIL 2.5 MG TAB PO SCH (19:58)
[2019-07-11] MEDS: INSULIN GLARGINE SOLOSTAR 100 UNITS/ML 3 ML PEN SQ SCH (23:10)
[2019-07-12] MEDS: OXYCODONE HCL IR 5 MG TAB (IMMEDIATE RELEASE) PO PRN ×5 (00:02→23:58)
--- NOTE | 2019-07-12 07:40 | Pulmonology Progress Note ---
Date of Service July 12, 2019 Assessment & Plan (1) Pleural effusion: The patient has a very large effusion. Dr. Lemus has already done a left thoracentesis with removal of 3000 mL's of bloody fluid. The fluid is likely malignant. He has numerous lung nodules that appear to be very suspicious for metastatic disease. One would suspect that the kidney is the primary site based upon the CT of the abdomen findings. Would await the results of the pleural fluid analysis. It is possible he may need repeat thoracentesis in the future or Pleurx catheter. The patient is very hypoxic with minimal exertion. We will order a repeat chest x-ray for Saturday. I suspect Dr. Lemus may need to do a repeat tap or even put a Pleurx catheter in. In light of the fact the patient has numerous pulmonary nodules, more than 20 nodules in the right lung alone, I do not think resection of the nodules would be indicated. Dr. Rosenberg will be following for pulmonary starting tomorrow. (2) Multiple lung nodules on CT: Await results of pleural fluid analysis. Subjective The patient denies significant shortness of breath. He was ambulating the olvera yesterday utilizing nasal cannula oxygen without shortness of breath. It is noted that he has nasal cannula in his nose currently and he is just resting doing nothing. Thus I am wondering if he is a bit more short of breath than he acknowledges. He did have some coughing yesterday according to his who was present during this evaluation. There was no sputum production. He is not having much pain in the chest. Physical Exam Physical Exam: The patient is cooperative alert and oriented. He is in no distress at rest. Weight is 185.2 kg. This is 8.7 kg increased from yesterday. Temperature is 36.4. ENT exam is unchanged. The most prominent finding is that of a very large neck. There is some crowding in the posterior pharynx. There is mild erythema in the back of the throat. Cardiac rate 88/min. Rhythm regular. Blood pressure 145/86. Lung horton reveals severely diminished breath sounds on the left. Breath sounds on the right are decreased due to his obesity. I believe there has been a decrease in the aeration of the left compared with yesterday. Thus the possibility of recurrent effusion needs to be considered. Clinically it accumulated quickly prior to coming to the hospital. Abdomen is obese and nontender. Extremities showed no cyanosis clubbing or edema. Results & Data Vital Signs (Past 12 Hours) Vital Signs Temp Pulse Resp BP BP Pulse Ox 07/12/19 06:16 36.4 C L 88 18 145/86 H 93 07/12/19 04:00 37.2 C 84 19 132/83 95 07/11/19 23:52 37.1 C 88 19 121/71 95 07/11/19 19:39 36.8 C 97 H 20 150/84 H 92 PG Care Time/CCT Total # of Minutes Spent Total Time Spent with Patient: Total time spent is greater than 50% in coordination of care (as documented) at patient's floor/unit and/or counseling patient:
[2019-07-12] MEDS: CHECK FENTANYL PATCH PLACEMENT SCH ×3 (10:30→23:58)
[2019-07-12] MEDS: GABAPENTIN 300 MG CAP PO SCH ×3 (10:30→20:37)
[2019-07-12] MEDS: DOCUSATE SODIUM 100 MG CAP PO SCH (10:30)
[2019-07-12] MEDS: INSULIN ASPART 100 UNITS/ML 3 ML PEN SC SCH ×4 (10:31→20:12)
--- NOTE | 2019-07-12 10:54 | Hospitalist Progress Note ---
Date of Service July 12, 2019 Assessment & Plan (1) Left renal mass: Probable metastatic left renal malignancy, newly diagnosed -CT abd/pelvis showed 8.5 cm lower pole left renal mass suspicious for renal cell carcinoma. -CT scan shows multiple lung nodules more than 20 right lung nodules, largest 18 mm, with large left pleural effusion, lesion on T3 of spinal column. -CT lumbar spine showed 3.5 cm L3 lytic lesion concerning for metastatic deposit. -Consulted Urology - recommends oncology consult. Would potentially be candidate for systemic therapy/possible cytoreduction inpatient. Will eventually need nephrectomy -Follow up pleural fluid pathology. (2) Pleural effusion: Presented on admission with worsening SOB and back pain Possibly secondary to malignancy, pleural fluid cytology pending -CTA chest on admission showed large left pleural effusion with left lung compressive atelectasis -CXR showed Large left pleural effusion with associated left lung atelectasis/consolidation -S/P Left pleural thoracentesis with 3 L of fluid removal on -CXR post thoracentesis done showed decrease in size in the [id number] left pleural effusion -Pulmonology on board -Continue monitor closely (3) Hypoxia: Oxygen 2 L as dropped SaO2 to 70s on ambulation -Left pleural effusion in setting of Morbid Obesity, OHS contributing. Never diagnosed with IFTIKHAR. -Wean as tolerated PLAN: CXR in AM to see if he would need thoracentesis again and evaluate the need for Pleurx catheter. Appreciate pulmonary inputs (4) Diabetes: A1c 7.1 -Recently had been on prednisone taper therefore blood glucose elevated -Continue to hold metformin and jardiance -lantus/novolog per protocol (5) HTN (hypertension): BP stable -Continue monitor BP (6) Morbid obesity with BMI of 45.0-49.9, adult: BMI 48.6 -Counseling on Lifestyle modifications (7) DVT prophylaxis: -SCDs/Will encourage him to ambulate -Will start him on lovenox CODE STATUS FULL CODE DISPOSITION Medical mx in progress Awaiting pleural fluid pathology results, oncology evaluation Wean oxygen as tolerated Updated by bedside. Subjective Patient does have pain in left flank area. Does have some cough with no sputum. Denies any worsening of shortness of breath. But continues to be on oxygen. No chest pain, fever, chills. On 3 L of oxygen Physical Exam Physical Exam: GENERAL- AAOX3, No acute distress; Morbidly obese + LUNGS- Air entry bilaterally decreased. No rales, rhonchi, crackles, wheezes heard. HEART- Regular rate and rhythm. No murmurs ABDOMEN- Left flank tenderness, Soft, non tender, non distended, Bowel sounds heard. EXTREMITIES- Good peripheral pulses, no edema Results & Data Vital Signs (Past 12 Hours) Vital Signs Temp Pulse Resp BP BP Pulse Ox 07/12/19 06:16 36.4 C L 88 18 145/86 H 93 07/12/19 04:00 37.2 C 84 19 132/83 95 07/11/19 23:52 37.1 C 88 19 121/71 95 (1) Diabetes Diabetes mellitus complication status: with hyperglycemia Diabetes mellitus custodial insulin use: without custodial 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
[2019-07-12 11:42] LABS: INR 1.1 (0.9-1.1); Prothrombin Time 11.2 Seconds (9.0-12.0)
[2019-07-12] MEDS: MoRPHine SULFATE 4 MG/ML 1 ML CARP\\VIAL IV PRN ×3 (13:33→21:45)
[2019-07-12] MEDS: ENOXAPARIN INJ 40 MG/0.4 ML SYR SQ SCH (16:12)
--- NOTE | 2019-07-12 19:53 | Urology Progress Note ---
Date of Service July 12, 2019 Assessment & Plan (1) Left renal mass: Oncology to see. Imaging reviewed. See previous note for addressing multiple issues. Large left renal mass 8.5 cm on lower pole largely endophytic. No obvious local invasion, no significant dilation of renal vein or vena cava after reviewing image. Multiple lung nodules with large left pleural effusion and lesion on L3 of spinal column with close proximity to spinal cord. Will continue to monitor with plans for likely systemic therapy. Other options includ radical cytoreductive nephrectomy. Awaiting full met workup. May need spinal issue and plueral effusion issues addressed if either begins to worsen. Subjective Doing well. Continues to have fairly large pleural effusion with large volume drainage on Saturday. No severe pain. Has some SOB and requiring NC O2. Pain is well controlled. no new symptoms. no new issues. no bleeding. no severe problems. Patient is awaiting oncology for assessment and has been managed by pulm and primary time for breathing issues. Review of Systems Review of Systems: General: Energy level has been down recently. He has had weight loss as noted. No chills fevers or sweats. Denies daytime somnolence. Neurologic: No syncope or near syncope Ophthalmic: Denied ENT: Denies snoring or nasal congestion. Denies difficulty with sleep at all. Cardiac: Denies anterior chest pain or palpitations Pulmonary: As noted in history of present illness GI: Denies nausea vomiting constipation diarrhea or abdominal pain. : Denies hematuria or other urinary symptoms. Musculoskeletal: Pain in the low back which radiates down the left leg. Increased pain with cough or movement. Dermatologic: No rashes Endocrine: No lymphadenopathy Physical Exam Constitutional: well developed, well nourished, + morbidly obese and + obese; not ill appearing and no altered mental status Eyes: eyes not dysmorphic, no conjunctival abnormality and no scleral abnormality ENMT: Ears: no hearing impairment and no external ear abnormality Nose: no external nose abnormality Neck: normal visual inspection and trachea midline; no tracheal deviation Respiratory: normal respiratory effort; no respiratory distress, no labored breathing and does not use accessory muscles Cardiovascular: Rate/Rhythm: not tachycardic Gastrointestinal (Abdomen): Inspection/Auscultation: abdomen not distended Percussion/Palpation: abdomen soft; no guarding Musculoskeletal: Head/Neck/Chest: normocephalic and head atraumatic; full ROM of neck Extremities: full ROM of extremities Skin: no rashes and no ulcers Neurologic: CN's II-XI intact bilaterally and awake; not confused Motor/Sensory: no tremor and normal movement Gait: no staggering gait Psychiatric: Orientation: alert and oriented x 3 Apperance: appropriately dressed Eye Contact: good eye contact Motor Behavior: steady gait and station Affect: + depressed affect Genitourinary: no CVA tenderness Lymphatic: no lymphadenopathy Results & Data Vital Signs (Past 12 Hours) Vital Signs Temp Pulse Resp BP BP Pulse Ox 07/12/19 19:35 36.4 C L 89 20 125/76 95 07/12/19 14:00 36.9 C 95 H 20 120/70 94 07/12/19 12:00 36.5 C 97 H 20 155/85 H 92 PG Care Time/CCT Total # of Minutes Spent Total Time Spent with Patient: Total time spent is greater than 50% in coordination of care (as documented) at patient's floor/unit and/or counseling patient:
[2019-07-12] MEDS: INSULIN GLARGINE SOLOSTAR 100 UNITS/ML 3 ML PEN SQ SCH (20:36)
[2019-07-12] MEDS: LISINOPRIL 2.5 MG TAB PO SCH (20:37)
[2019-07-12] MEDS: CYCLOBENZAPRINE HCL 10 MG TAB PO PRN (20:55)
[2019-07-13] MEDS: fentaNYL 12 MCG/HR TDSY TD SCH (00:04)
[2019-07-13] MEDS: OXYCODONE HCL IR 5 MG TAB (IMMEDIATE RELEASE) PO PRN ×2 (05:41→11:19)
[2019-07-13] MEDS: CYCLOBENZAPRINE HCL 10 MG TAB PO PRN (05:42)
[2019-07-13] MEDS: MoRPHine SULFATE 4 MG/ML 1 ML CARP\\VIAL IV PRN ×4 (07:25→22:16)
[2019-07-13] MEDS: GABAPENTIN 300 MG CAP PO SCH ×3 (07:30→21:02)
[2019-07-13] MEDS: DOCUSATE SODIUM 100 MG CAP PO SCH (07:30)
[2019-07-13] MEDS: CHECK FENTANYL PATCH PLACEMENT SCH (07:30)
[2019-07-13] MEDS: INSULIN ASPART 100 UNITS/ML 3 ML PEN SC SCH ×4 (07:36→21:01)
--- NOTE | 2019-07-13 08:36 | XRay Report ---
XR chest 2V routine CLINICAL HISTORY: Follow-up pleural effusion COMPARISON STUDY: 07/10/2019 FINDINGS: There is increasing left pleural effusion with little residual aerated left lung. There is associated left lung compressive atelectatic change. There is no focal right lung pulmonary consolida tion. There is mild elevation of interstitium and an element of mild pulmonary vascular congestion mu st be considered. The heart is enlarged.[Multiple right lung pulmonary nodules are suspected. IMPRESSION: 1. Cardiomegaly and mild pulmonary vascular congestion/fluid overload 2. Significant interval increase in the size of a left pleural effusion with left lung compressive at electasis. 3. Multiple right lung pulmonary nodules suspicious for metastatic disease. Electronically signed by: Nabil Fox M.D. 07/13/2019 8:35 AM
--- NOTE | 2019-07-13 09:58 | Urology Progress Note ---
Date of Service July 13, 2019 Subjective 38 YO male with large left renal mass. Patient not examined today due to being first off the floor and then in the shower upon my rounds x2. Awaiting oncology input. Will continue to follow. Results & Data Vital Signs (Past 12 Hours) Vital Signs Temp Pulse Resp BP BP Pulse Ox 07/13/19 06:16 36.6 C 87 19 112/76 93 07/13/19 04:26 36.7 C 85 20 118/78 95 07/12/19 22:39 36.6 C 90 18 127/80 93
--- NOTE | 2019-07-13 12:23 | Radiation OncologyConsultation ---
Date of Consultation July 13, 2019 Assessment & Plan (1) Metastatic cancer: Assessment: Mr. Almendarez is a 38-year-old gentleman who presents with presumed metastatic renal cell carcinoma to the lungs and lumbar spine. The patient did undergo a left-sided thoracentesis and the pleural fluid pathology results are still pending. The patient continues to have back pain which correlates to his metastatic disease involving the lumbar spine. Additionally, the patient does have shortness of breath most likely related to his left-sided pleural effusion. The patient is being followed by pulmonary medicine, thoracic surgery and urology. I have been consulted to evaluate the patient regarding the role of palliative radiation therapy to the lumbar spine. Treatment Options: 1. Palliative external beam radiation therapy to lumbar spine. 2. Best supportive care with pain medications. Recommendation: I recommended palliative external beam radiation therapy to the lumbar spine after confirming the pathology. Systemic therapy is the mainstay of treatment for metastatic disease and a medical oncology should be consulted after the pathology reports are finalized. Plan: 1. CT simulation for treatment planning for radiation therapy. Plan to start radiation therapy after obtaining pathology results. Plan for 10 fractions. Treatment may be completed in the outpatient setting. 2. Follow-up pathology results. Medical oncology should be consulted after pathology reports are finalized. 3. Continue care as per primary team as well as thoracic surgery, pulmonary medicine and urology 4. Patient and family encouraged to call us with any further questions or concerns. Rationale/Explanation of Treatment: I did explain the indications, alternatives, benefits, risks and side effects of external beam radiation therapy. I did explain the most common side effects including, but not limited to, skin erythema, skin breakdown, hyperpigmentation, telangiectasia, wound complications, perianal fistula development, fistula formation, bowel obstruction, bowel perforation, dysuria, increased urinary frequency, urgency, diarrhea, constipation, melena, hematochezia, hematuria, radiation cystitis, radiation proctitis, fatigue, decreased blood counts, wound complications from surgery, rectal incontinence, secondary malignancy development. I did explain the procedures and daily process of radiation therapy. The patient understands and would be willing to consent to treatment. The patient and had multiple questions which were answered to their full sa tisfaction. Thank you for allowing us to participate in the care of this patient. This chart was completed in part utilizing [employer] Voice Recognition software. Attempts were made to minimize the grammatical errors, random word insertions, pronoun errors and incomplete sentences. Any formal questions or concerns about the content, text or information contained within the body of this dictation should be directly addressed to the provider for clarification. Precious Angulo MD Department of Radiation Oncology [facility] and [facility] History of Present Illness Attending Physician: Keira Angulo History of Present Illness 04/2019 to current. Patient initially presented with low back that has gotten significantly worse as well as shortness of breath in the last month. 07/09/2019. Patient presents to emergency room department. Patient admitted to hospital for further work-up and evaluation patient imaging studies. 07/09/2019. CTA of chest. IMPRESSION: 1. Large left pleural effusion with left lung compressive atelectasis 2. Multiple pulmonary nodules. Metastatic disease is the diagnosis of exclusion. 3. No evidence of acute pulmonary embolism 07/09/2019. CT of abdomen/pelvis. IMPRESSION: 1. Large left pleural effusion 2. Multiple right lung pulmonary nodules suspicious for metastatic disease 3. 8.5 cm lower pole left renal mass suspicious for renal cell carcinoma4. 3.6 cm destructive L3 lesion with minimal epidural extension. The findings are suspicious for a metastatic deposit. 07/09/2018. CT of lumbar spine. IMPRESSION: 1. 3.5 cm L3 lytic focus suspicious for a metastatic deposit. There is minimal epidural extension 2. Multilevel spondylytic changes with prominent posterior disc osteophyte complexes at the L4-5 and L5-S1 levels. 07/10/2019. Ultrasound-guided thoracentesis of pleural effusion with cytology by Dr. Lemus. Final pathology report pending. 07/11/2019. CT of chest. IMPRESSION: 1. Slight interval decrease in the size of a left pleural effusion status post thoracentesis 2. No evidence of pneumothorax 3. Innumerable bilateral pulmonary nodules consistent with metastatic disease 4. Left lung compressive atelectatic changes. 07/11/2019. CT of abdomen/pelvis. IMPRESSION: 1. Large left pleural effusion 2. Multiple pulmonary nodules consistent with metastatic disease 3. 9 cm solid left renal mass consistent with a renal cell carcinoma 4. Suboptimal opacification of the renal vein. No definite renal vein involvement. If further assessment of the renal vein is deemed clinically necessary, an MRI would be considered the test of choice in follow-up5. 37 mm destructive L3 lesion with minimal anterior epidural extension. The findings are consistent with metastatic deposit. 07/12/2019. Pulmonary medicine follow-up with Dr. Pan. Dr. Pan has recommended consideration of repeating thoracentesis for of left pleural effusion based on imaging findings and patient's symptoms. 07/12/2019. Urology follow-up by Dr. Cochran. Dr. Cochran is recommended consideration of pulmonary/thoracic surgery intervention for pleural effusion as well as consideration of management of the lumbar spine lesion. Further recommendations are pending final pathology report from pleural fluid cytology. Currently, the patient does continue to have low back pain. He has been started on several pain medications and still continues to have pain despite being on pain medications. He also does notice some sharp shooting pains down his left lower extremity. Allergies Allergy/AdvReac Type Severity Reaction Status Date / Time No Known Allergies Allergy Verified 07/09/19 18:27 Home Medications Home Medications Medication Instructions Recorded Confirmed Type acetaminophen [Tylenol Extra 1,000 mg PO Q6H PRN 06/28/19 07/09/19 History Strength] empagliflozin [Jardiance] 25 mg PO DAILY 06/28/19 07/09/19 History lidocaine [Lidoderm] 1 patch TOP DAILY #10 ea 06/28/19 07/09/19 Rx metformin 1,000 mg PO BID 06/28/19 07/09/19 History cyclobenzaprine 10 mg PO TID PRN 07/09/19 07/09/19 History gabapentin 300 mg PO TID 07/09/19 07/09/19 History ibuprofen 800 mg PO Q8H PRN 07/09/19 07/09/19 History Patient History Medical History Morbid obesity with BMI of 45.0-49.9, adult (Chronic) HTN (hypertension) (Chronic) Diabetes (Chronic) Surgical History History of cholecystectomy (Chronic) History of arthroscopic knee surgery (Chronic) Family History Father No problems noted. 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 Results Additional Studies 07/09/19 18:20 ECG 12 lead EKG Stat CXR [XR chest 2V routine] Stat 07/09/19 18:57 CT abd pelvis IV con only Stat CT angio chest PE protocol Stat CT lumbar spine wo con Stat 07/10/19 11:14 XR chest 1V portable Stat 07/11/19 13:15 CT abdomen pelvis wo/w con Routine CT chest w con Routine 07/13/19 CT guide rad therapy pelvis Routine 07/13/19 07:00 XR chest 2V routine Routine 07/13/19 13:15 NM bone scan whole body Routine Time Spent Attending I spent 35 minutes for this consultation, which included obtaining clinical information, performing a physical exam, recommending a plan of action and answering questions. Greater than 50% of the time spent was direct face to face interaction with the patient.
--- NOTE | 2019-07-13 12:54 | Hospitalist Progress Note ---
Date of Service July 13, 2019 Assessment & Plan (1) Left renal mass: Probable metastatic left renal malignancy, newly diagnosed -CT abd/pelvis showed 8.5 cm lower pole left renal mass suspicious for renal cell carcinoma. -CT scan shows multiple lung nodules more than 20 right lung nodules, largest 18 mm, with large left pleural effusion, lesion on T3 of spinal column. -CT lumbar spine showed 3.5 cm L3 lytic lesion concerning for metastatic deposit. -Consulted Urology - recommends oncology consult. Would potentially be candidate for systemic therapy/possible cytoreduction inpatient. Will eventually need nephrectomy -Follow up pleural fluid pathology. (2) Pleural effusion: Presented on admission with worsening SOB and back pain Possibly secondary to malignancy, pleural fluid cytology pending -CTA chest on admission showed large left pleural effusion with left lung compressive atelectasis -CXR showed Large left pleural effusion with associated left lung atelectasis/consolidation -S/P Left pleural thoracentesis with 3 L of fluid removal on -CXR post thoracentesis done showed decrease in size in the [id number] left pleural effusion -Repeat CXR today -significant interval increase in size of left pleural effusion with left lung compressive atelectasis. Mild pulmonary congestion/fluid overload. Plan is for left Pleurx catheter placement today by CT surgery -Pulmonology on board - appreciate inputs (3) Hypoxia: Oxygen 2-3 L as dropped SaO2 to 70s on ambulation -Recurrent Left pleural effusion in setting of Morbid Obesity, OHS contributing. Never diagnosed with IFTIKHAR. -Plan is for left Pleurx catheter placement for recurrent left pleural effusion status post thoracentesis -Wean as tolerated (4) Diabetes: A1c 7.1 -Recently had been on prednisone taper therefore blood glucose elevated -Continue to hold metformin and jardiance -lantus/novolog per protocol (5) HTN (hypertension): BP stable -Continue monitor BP (6) Morbid obesity with BMI of 45.0-49.9, adult: BMI 48.6 -Counseling on Lifestyle modifications (7) DVT prophylaxis: -SCDs/Will encourage him to ambulate -Lovenox SQ CODE STATUS - Full code DISPOSITION Medical mx in progress For pleurx catheter placement today Awaiting oncology inputs Wean oxygen as tolerated- likely will need oxygen arrangements prior to discharge. Updated by bedside. Subjective Patient continues to have pain in left flank. Requiring IV morphine almost every 4-5 hours and oxycodone every 4 hours. Does have some shortness of breath, cough. No sputum production. No chest pain, fever, chills, nausea, vomiting. On 2 to 3 L of oxygen Physical Exam Physical Exam: GENERAL- AAOX3, No acute distress; Morbidly obese + LUNGS- Air entry bilaterally decreased. No rales, rhonchi, crackles, wheezes heard. HEART- Regular rate and rhythm. No murmurs ABDOMEN- Left flank tenderness, Soft, non tender, non distended, Bowel sounds heard. EXTREMITIES- Good peripheral pulses, no edema Results & Data Vital Signs (Past 12 Hours) Vital Signs Temp Pulse Resp BP BP Pulse Ox 07/13/19 11:00 36.3 C L 95 H 20 120/79 93 07/13/19 06:16 36.6 C 87 19 112/76 93 07/13/19 04:26 36.7 C 85 20 118/78 95 (1) Diabetes Diabetes mellitus complication status: with hyperglycemia Diabetes mellitus long term care social worker insulin use: without fci 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
[2019-07-13] MEDS: OXYCODONE HCL 15 MG TABCR (OXYCONTIN) PO SCH (13:06)
--- NOTE | 2019-07-13 14:41 | Nuclear Medicine Report ---
NM bone scan whole body CLINICAL HISTORY: Metastatic carcinoma COMPARISON STUDY: CT scan of the abdomen and pelvis dated 07/11/2019 FINDINGS: The patient was injected with 27.5 mCi of technetium 99m MDP. Three-hour Delayed whole body images were acquired. There is a focus of increased activity at the L3 level, corresponding to the patient's known destruct chiquis lesion. The findings are consistent with a metastatic deposit. There are no additional areas of i ncreased activity viewed as suspicious for metastatic disease. Increased activity within the right kn ee is likely arthritic. There is a photopenic defect within the left knee suggestive of a prior knee arthroplasty. IMPRESSION: 1. Increased L3 activity, corresponding to the patient's known lytic mass. 2. There are no additional foci of increased activity viewed as suspicious for skeletal metastasis Electronically signed by: Nabil Fox M.D. 07/13/2019 2:40 PM
[2019-07-13] MEDS: ENOXAPARIN INJ 40 MG/0.4 ML SYR SQ SCH (17:26)
--- NOTE | 2019-07-13 20:10 | Surgery Progress Note ---
Date of Service July 13, 2019 Assessment & Plan (1) Pleural effusion: -pt. underwent left thoracentesis on 07/10/19 -culture are (-) -cytology (-) for malignancy -CXR today shows reaccumulation of pleural fluid -case was discussed with pulmonary service and they will see today for possible thoracentesis or pleurex as Dr. Lemus is out of town Subjective AT time of my visit this am at around 8 am the pt. was resting in bed. He has noted some worsening SOB with exertion, similar to what he noted before thoracentesis. Physical Exam Constitutional: well developed and well nourished; no acute distress Respiratory: no respiratory distress and no labored breathing BS are decreased on left side Results & Data Vital Signs (Past 12 Hours) Vital Signs Temp Pulse Resp BP BP Pulse Ox 07/13/19 19:36 37.0 C 85 20 98/86 L 94 07/13/19 15:28 36.6 C 97 H 18 119/76 95 07/13/19 11:00 36.3 C L 95 H 20 120/79 93
--- NOTE | 2019-07-13 20:48 | Pulmonology Progress Note ---
Date of Service July 13, 2019 Assessment & Plan (1) Pleural effusion: Patient required repeat thoracentesis or Pleurx catheter Prior thoracentesis 07/10/2019 with negative cultures and negative cytology for malignancy We will plan on invasive procedure tomorrow for clearance of reaccumulated pleural effusion Oxygenating well with minimal supplemental oxygen Discussion with patient, , [id number]. All in favor of proceeding with treatment Although the laboratory findings are negative for malignancy, patient continues with high suspicion for metastatic disease Patient is currently not receiving antiplatelet agents Received enoxaparin 40 mg subcutaneously 07/13/2019 at 1726 INR 07/12/2019 1.1 Platelet count 07/10/2019 268 -repeat labs in the morning Will make patient n.p.o. after midnight in the event that conscious sedation is required or tunnelled catheter (2) Multiple lung nodules on CT: Consistent with metastatic disease Unknown primary Continue work-up for malignancy Not a candidate for tissue biopsy of the lung at this time Continue to monitor radiographically (3) DVT prophylaxis: Patient is currently receiving enoxaparin 40 mg every 24 hours Hold next dose of Lovenox for probable Pleurx catheter insertion Ambulate as tolerated Thank you for including us in the care of this patient. We will continue to follow along with you. Please refer to Dr. Rosenberg's addendum for further recommendations. Supervising Physician Co-Signing Physician Notes I personally evaluated and examined this patient. I agree with the assessment and plan of Jimy MAYA. [Patient's pleural fluid cytology came back essentially inconclusive. More than likely his pleural effusion is litigation claim representative of a malignant process. We will likely proceed with the Pleurx catheter either tomorrow or Saturday. Ideally we would like to have a tissue sample and a diagnosis of his underlying malignancy. Will discuss with medical oncology about their thoughts on how to best proceed with a specimen. Certainly after placing the Pleurx catheter we can send a sample to the lab to determine if there are malignant cells present. We will need to check his platelet function, INR and hold any DVT prophylaxis prior to Pleurx placement.] Subjective Attending: Dr. Rosenberg Patient seen and examined at bedside. Patient's and [id number] were present in the room. Patient states increased shortness of breath at rest as well as dyspnea with exertion with minimal activity. Chest x-ray was performed this morning shows increased pleural effusion on the left similar to presenting x-ray on admission. Patient reports that he underwent left thoracentesis on 07/10/2019 and had no complications and did have significant improvement in respiratory status. Patient is aware the treatment options include recurrent thoracentesis as well as possible Pleurx catheter. Patient denies any fever, chills, sweats, rigors. He has not had a bowel movement for 3 days. He has no abdominal discomfort. Micturition is adequate per patient report. He has no other acute complaints. Review of Systems Review of Systems: All systems reviewed & are unremarkable except as noted in HPI & below Physical Exam Physical Exam: GENERAL : No acute distress. Pleasant. Talkative EYES: No icterus, gaze conjugate NOSE: No evidence of epistaxis MOUTH: No lesions or candidiasis NECK: Supple LUNGS: CTA B/L, no wheezes, rales or rhonchi. Patient has decreased breath sounds on the left. Patient has increased aeration at the base with a right lateral recumbent position. HEART: Regular, rate controlled ABDOMEN: Soft, NT, ND, BS Present EXTREMITIES: No LE edema, pedal pulses intact NEURO: A&OX3 Results & Data Vital Signs (Past 12 Hours) Vital Signs Temp Pulse Resp BP BP Pulse Ox 07/13/19 19:36 37.0 C 85 20 98/86 L 94 07/13/19 15:28 36.6 C 97 H 18 119/76 95 07/13/19 11:00 36.3 C L 95 H 20 120/79 93 Laboratory Results 07/10/19 05:50 07/09/19 18:30 PG Care Time/CCT Total # of Minutes Spent Total Time Spent with Patient: Total time spent is greater than 50% in coordination of care (as documented) at patient's floor/unit and/or counseling patient: 30
[2019-07-13] MEDS: LISINOPRIL 2.5 MG TAB PO SCH (21:01)
[2019-07-13] MEDS: INSULIN GLARGINE SOLOSTAR 100 UNITS/ML 3 ML PEN SQ SCH (21:01)
[2019-07-14] MEDS: OXYCODONE HCL 15 MG TABCR (OXYCONTIN) PO SCH ×2 (00:43→12:59)
[2019-07-14] MEDS: MoRPHine SULFATE 4 MG/ML 1 ML CARP\\VIAL IV PRN ×2 (02:31→07:11)
[2019-07-14 06:14] LABS: Hematocrit (blood only) 41.1 % (42-52); Hemoglobin 13.7 g/dL (14.0-18.0); Mean Corpuscular Hgb Conc 33.3 g/dL (32-36); Mean Corpuscular Volume 76.5 fL (80-100); Platelet Count 272 K/uL (130-400); RDW Coefficient of Variation 16.2 % (11.5-14.5); RDW Standard Deviation 44.2 fL (36.4-46.3); Red Blood Count 5.37 M/uL (4.7-6.1); White Blood Count 8.56 K/uL (4.8-10.8)
[2019-07-14 06:53] LABS: BUN Creatinine Ratio 20.1 (10-20); Calcium 8.6 mg/dl (8.5-10.1); Creatinine Clr Calc Pharmacy 216.6 ml/min; Est GFR (African American) 128.7; Est GFR (Non-African American) 111.1; Potassium 4.2 mmol/L (3.5-5.1)
[2019-07-14] MEDS: INSULIN ASPART 100 UNITS/ML 3 ML PEN SC SCH ×3 (07:53→21:19)
[2019-07-14] MEDS ORDERED: Nursing to Pharmacy Communication ONE ×2 (08:03→13:41)
[2019-07-14] MEDS: GABAPENTIN 300 MG CAP PO SCH ×3 (09:14→21:19)
[2019-07-14] MEDS: DOCUSATE SODIUM 100 MG CAP PO SCH (09:14)
[2019-07-14] MEDS ORDERED: fentaNYL citrate 100 MCG/2 ML VIAL ONE (10:33)
[2019-07-14] MEDS ORDERED: MIDAZOLAM HCL 5 MG/ML 1 ML VIAL ONE (10:36)
--- NOTE | 2019-07-14 11:04 | Pre Anesthesia Assessment ---
Date of Service July 14, 2019 Pre Sedation Assessment Vital Signs Temp Pulse Pulse Resp BP BP Pulse Ox 07/14/19 10:50 97 H 28 H 137/87 96 07/14/19 10:40 95 H 18 124/86 97 07/14/19 07:04 36.6 C 94 H 20 144/83 H 94 07/14/19 03:59 36.8 C 105 H 20 119/76 95 07/13/19 23:37 36.9 C 96 H 20 119/76 92 07/13/19 19:36 37.0 C 85 20 98/86 L 94 07/13/19 15:28 36.6 C 97 H 18 119/76 95 Pre-Sedation Airway Assessment Smoking Status: Never smoker (SMOKED SOCIALLY OVER 9 YEARS AGO) Hx Sleep Apnea: No Short, Thick Neck: Yes Thyromental Distance: > or= 3.5 Finger Breadths Oral Cavity: + WNL Mallampati Class: II ASA: ASA3 NPO Status Date of Last Intake of Fluids: 07/13/19 Time of Last Intake of Fluids: 22:30 Date of Last Intake of Solid Food: 07/13/19 Time of Last Intake of Solid Foods: 22:30 Notes The planned sedation has been discussed with the patient. Informed Consent was obtained. I have identified the patient, determined the appropriateness of sedation and have assessed the patient immediately prior to the procedure. All medicine(s) and interventions are by my order.
--- NOTE | 2019-07-14 11:07 | History & Physical Bridge Note ---
Date of Service July 14, 2019 History & Physical Bridge Note I have examined the patient, reviewed the History & Physical and in the interval since the performance of the History & Physical I have noted the following changes of clinical significance: no changes noted
--- NOTE | 2019-07-14 11:37 | Hospitalist Progress Note ---
Date of Service July 14, 2019 Assessment & Plan (1) Left renal mass: Probable metastatic left renal malignancy, newly diagnosed -CT abd/pelvis showed 8.5 cm lower pole left renal mass suspicious for renal cell carcinoma. -CT scan shows multiple lung nodules more than 20 right lung nodules, largest 18 mm, with large left pleural effusion, lesion on T3 of spinal column. -CT lumbar spine showed 3.5 cm L3 lytic lesion concerning for metastatic deposit. -Consulted Urology - Potentially a candidate for systemic therapy/possible cytoreduction inpatient prior to nephrectomy. -Consulted radiation oncologyfor uncontrolled back pain secondary to L3 lytic lesion, metastasis for consideration for palliative radiation. Consulted oncologyDr Abdi aware about the case but has not officially seen patient . Need to contact him again so patient can be evaluated inpatient after pleural fluid cytology is back (first sample- neg, Second one to be taken today) for consideration for cytoreduction treatment prior to nephrectomy (2) Pleural effusion: Presented on admission with worsening SOB and back pain Likely secondary to malignancy, pleural fluid cytology came back negative for malignancy, but abundant red blood cells with scattered mesothelial cells/mixed inflammation. -Plan is to repeat thoracentesis today/placement of left Pleurx catheter by pulmonary. Fluid will be sent again today for pathology -CTA chest on admission showed large left pleural effusion with left lung compressive atelectasis -CXR showed Large left pleural effusion with associated left lung atelectasis/consolidation -S/P Left pleural thoracentesis with 3 L of fluid removal on -CXR post thoracentesis done showed decrease in size in the [id number] left pleural effusion -Repeat CXR on 07/13 -significant interval increase in size of left pleural effusion with left lung compressive atelectasis. Mild pulmonary congestion/fluid overload. -Pulmonology on board - appreciate inputs (3) Hypoxia: Oxygen 2-3 L as dropped SaO2 to 70s on ambulation -Recurrent Left pleural effusion in setting of Morbid Obesity, OHS contributing. Never diagnosed with IFTIKHAR. -Plan is for left Pleurx catheter placement for recurrent left pleural effusion status post thoracentesis today -Wean as tolerated (4) Pain management: Patient continues to have significant pain in lower back/left flank. Likely secondary to L3 lytic lesion, metastasis. Radiation oncology plans to do radiation for palliative reasons Started him on OxyContin 15 mg twice daily on 07/13/2019. Continues to be on IV morphine/oxycodone as needed. We will need to reevaluate need for pain medications prior to discharge especially after palliative radiation. May consider reducing the dose. Next para (5) Diabetes: A1c 7.1 -Recently had been on prednisone taper therefore blood glucose elevated -Continue to hold metformin and jardiance -lantus/novolog per protocol (6) HTN (hypertension): BP stable -Continue monitor BP (7) Morbid obesity with BMI of 45.0-49.9, adult: BMI 48.6 -Counseling on Lifestyle modifications (8) DVT prophylaxis: -SCDs/Will encourage him to ambulate -Lovenox SQ CODE STATUS - Full code DISPOSITION Medical mx in progress For pleurx catheter placement today Will need oncology evaluation after today's pleural fluid cytology is back for cytoreductive treatment consideration Will need to evaluate oxygen needs prior to discharge Will need to evaluate pain medication need prior to discharge Discussed case with pulmonary, urology today. Updated by bedside. Subjective Patient is feeling a little better after starting oxycodone twice daily dosing in terms of pain- back and left flank pain. Still has shortness of breath, mild cough. No chest pain, fever, chills. On 2 to 3 L of oxygen Physical Exam Physical Exam: GENERAL- AAOX3, No acute distress; Morbidly obese + LUNGS- Air entry bilaterally decreased on left side > right. No rales, rhonchi, crackles, wheezes heard. HEART- Regular rate and rhythm. No murmurs ABDOMEN- Left flank tenderness, Soft, non tender, non distended, Bowel sounds heard. EXTREMITIES- Good peripheral pulses, no edema Results & Data Vital Signs (Past 12 Hours) Vital Signs Temp Pulse Pulse Resp BP BP Pulse Ox 07/14/19 11:30 95 H 18 137/95 98 07/14/19 11:25 95 H 17 132/92 07/14/19 11:20 97 H 18 122/92 96 07/14/19 11:15 99 H 23 141/100 H 07/14/19 10:50 97 H 28 H 137/87 96 07/14/19 10:40 95 H 18 124/86 97 07/14/19 10:10 100 H 28 H 141/91 H 97 07/14/19 07:04 36.6 C 94 H 20 144/83 H 94 07/14/19 03:59 36.8 C 105 H 20 119/76 95 07/13/19 23:37 36.9 C 96 H 20 119/76 92 (1) Diabetes Diabetes mellitus complication status: with hyperglycemia Diabetes mellitus correction insulin use: without correction 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
[2019-07-14] MEDS ORDERED: INSULIN ASPART 100 UNITS/ML 3 ML PEN SC SCH (12:00)
--- NOTE | 2019-07-14 12:29 | Post Anesthesia Assessment ---
Date of Service July 14, 2019 Post Sedation Assessment Vital Signs Temp Pulse Pulse Resp BP BP Pulse Ox 07/14/19 12:20 88 18 133/84 99 07/14/19 12:15 90 20 113/92 100 07/14/19 12:10 94 H 14 149/88 H 100 07/14/19 12:05 97 H 23 124/91 100 07/14/19 12:00 97 H 21 148/91 H 07/14/19 11:55 98 H 28 H 132/98 100 07/14/19 11:50 99 H 16 140/94 98 07/14/19 11:45 95 H 15 144/90 H 98 07/14/19 11:40 95 H 18 146/88 H 97 07/14/19 11:35 6 L 17 128/89 97 07/14/19 11:30 95 H 18 137/95 98 07/14/19 11:25 95 H 17 132/92 07/14/19 11:20 97 H 18 122/92 96 07/14/19 11:15 99 H 23 141/100 H 07/14/19 10:50 97 H 28 H 137/87 96 07/14/19 10:40 95 H 18 124/86 97 07/14/19 10:10 100 H 28 H 141/91 H 97 07/14/19 07:04 36.6 C 94 H 20 144/83 H 94 07/14/19 03:59 36.8 C 105 H 20 119/76 95 07/13/19 23:37 36.9 C 96 H 20 119/76 92 07/13/19 19:36 37.0 C 85 20 98/86 L 94 07/13/19 15:28 36.6 C 97 H 18 119/76 95 Post Sedation Plan On clinical assessment, the patient appears to have tolerated the sedation without complications. Patient is recovering as anticipated. Patient will continue to be monitored by nursing and may be discharged when sedation discharge criteria are met per below protocol. Upon Completions of procedure and additional 15 minutes continue every 5 minute vital signs and the P.A.R. score; then discharge to a Phase I or Fast Track to Phase II per the following guidelines: * Discharge Patient to appropriate Phase II area if PAR is 8 or greater or return to pre- procedure baseline. The post - procedure orders will be as directed. * If PAR score is less than 8 or not return to pre-procedure baseline then patient will follow Phase I monitoring till PAR is reached for Phase II. The Phase I may be done in procedure room or may call to secure a Phase I area. * If naloxone or flumazenil are used for reversal, hold in Phase I for continued monitoring from when last reversal dose was given for a minimum of 60 minutes or longer pending the nurse and/or physician discretion of patient condition before discharge to Phase II. Please call the Sedation Physician to re-evaluate and complete post-note for discharge to Phase II area. Do NOT discharge from procedure sedation or Phase 1 until post- sedation evaluation note is complete by procedure /sedation MD Sedation Discharge Instructions to be given to the patient at discharge to home.
--- NOTE | 2019-07-14 12:35 | Procedure Note ---
Procedure Note Date of Service July 14, 2019 Note Procedure: Ultrasound guided L Pleurx catheter placement. Indication: Recurrent malignant effusion Consent: Signed by patient and verified with timeout prior to procedure. Anesthesia: 26 mL's 1% lidocaine without epinephrine locally. Sedation: 62.5 mcg fentanyl, 4 mg Versed. Sedation start: 1113 Sedation end: 1225 Baffle Mounter: Dr. Jaycob De La Rosa Procedure: The patient was brought to the sedation unit. Standard monitoring was applied. Appropriate radiographic films had been reviewed prior to commencement of the procedure. Risks and benefits were again discussed with patient consent was verified. The patient was placed in the left side up lateral decubitus position. Limited thoracic ultrasound was performed which revealed a free flowing pleural effusion. Site appropriate for the pleurotomy was marked. Skin was prepped and draped in normal sterile fashion. Using 1% lidocaine, the skin and soft tissues down to the pleura were anesthetized. A tract extending approximately 6 cm anteriorly from the pleurotomy site was also infiltrated and a site appropriate for the exit of the Pleurx catheter was marked. A 1 cm skin stevo was made at the posterior site. The catheter over the needle apparatus was advanced into the pleural space with pleural fluid easily aspirated. The catheter in the kit was not long enough to access the pleural space due to the patient body habitus and a throacentesis kit was required. Once the thora catheter was in place, it was cut and a wire was passed through the catheter after the needle was removed. The Pleurx catheter was then loaded on the tunneling device. A 1cm skin inci jorge luis was made at the anterior catheter exit site. The tunneling device with the attached Pleurx catheter were passed from the anterior incision back to the posterior incision until the cuff of the Pleurx catheter resided within the subcutaneous tissues. The catheter was palpated along its course and no kinking was identified. Serial dilatation was then performed over the wire with the pull-away catheter being left in place. The Pleurx was removed from the tunneling mechanism and advanced through the peel-away catheter. The catheter sheath was then peeled back as the Pleurx catheter was advanced into the pleural space. The Pleurx catheter course was palpated and no kinks were felt. It was attached to wall suction and a total of 2000 mL's of bloody fluid was removed. Using 1-0 silk, 2 stitches were placed at the exit Pleurx site and the catheter secured in place. 2 small Vicryl sutures were used to close the posterior incision. A sterile dressing was applied. The patient tolerated the procedure well without obvious complication. Post procedure x-ray is pending. Estimated blood loss: Less than 10 mL's Coding CPT Codes Sedation/Anesthesia - Sedation/Anesthesia: Mod Sedation by the same physician;Init15 Min Child Age 5 & Up ([id number]) Sedation/Anesthesia - Sedation/Anesthesia: Mod Sedation by the same physician; Ea [id number] Minutes ([id number]) Pulmonary/Thoracic - Pulmonary and Thoracic: Insert pleural cathereter w/cuff ([id number]) Pulmonary/Thoracic - Pulmonary and Thoracic: US, Chest, real time with imaging documentation ([id number])
--- NOTE | 2019-07-14 12:44 | XRay Report ---
XR chest 1V portable CLINICAL HISTORY: S/P Left pleurX catheter placement verification COMPARISON STUDY: 07/13/2019 FINDINGS: Placement of a left sided drainage catheter. Tip is in the medial aspect left pulmonary ape x. No evidence for pneumothorax. IMPRESSION: Left drainage catheter in good position. No evidence for pneumothorax. Slight improvemen t in aeration the left pulmonary apex The above report was generated using voice recognition software. It may contain grammatical, syntax or spelling errors. Electronically signed by: Martin Duarte M.D. 07/14/2019 12:43 PM
[2019-07-14] MEDS ORDERED: MIDAZOLAM HCL 5 MG/ML 1 ML VIAL IV STA (12:47)
[2019-07-14] MEDS ORDERED: fentaNYL citrate 100 MCG/2 ML VIAL IV ONE (12:48)
[2019-07-14] MEDS: ENOXAPARIN INJ 40 MG/0.4 ML SYR SQ SCH (15:46)
[2019-07-14] MEDS: OXYCODONE HCL IR 5 MG TAB (IMMEDIATE RELEASE) PO PRN ×2 (16:28→22:05)
[2019-07-14] MEDS: INSULIN GLARGINE SOLOSTAR 100 UNITS/ML 3 ML PEN SQ SCH (21:18)
[2019-07-14] MEDS: LISINOPRIL 2.5 MG TAB PO SCH (21:19)
[2019-07-15] MEDS: OXYCODONE HCL 15 MG TABCR (OXYCONTIN) PO SCH ×2 (00:32→13:20)
[2019-07-15] MEDS: OXYCODONE HCL IR 5 MG TAB (IMMEDIATE RELEASE) PO PRN ×2 (03:21→10:19)
[2019-07-15] MEDS: MoRPHine SULFATE 4 MG/ML 1 ML CARP\\VIAL IV PRN (05:27)
[2019-07-15 07:09] LABS: Hematocrit (blood only) 38.1 % (42-52); Hemoglobin 12.5 g/dL (14.0-18.0); Mean Corpuscular Hgb Conc 32.8 g/dL (32-36); Mean Corpuscular Volume 76.8 fL (80-100); Mean Platelet Volume 8.8 fL (7.4-10.4); Platelet Count 249 K/uL (130-400); RDW Coefficient of Variation 16.1 % (11.5-14.5); RDW Standard Deviation 44.9 fL (36.4-46.3); Red Blood Count 4.96 M/uL (4.7-6.1); White Blood Count 7.72 K/uL (4.8-10.8)
[2019-07-15 07:48] LABS: Creatinine Clr Calc Pharmacy 199.6 ml/min; Est GFR (African American) 123.5; Est GFR (Non-African American) 106.5
[2019-07-15] MEDS: INSULIN ASPART 100 UNITS/ML 3 ML PEN SC SCH ×4 (08:46→20:45)
[2019-07-15] MEDS: DOCUSATE SODIUM 100 MG CAP PO SCH ×2 (08:46→20:43)
[2019-07-15] MEDS: GABAPENTIN 300 MG CAP PO SCH ×3 (08:53→20:45)
--- NOTE | 2019-07-15 10:19 | XRay Report ---
XR chest 2V routine HISTORY: 38 years-old Male Left pleural effusion follow-up study in a patient with left pleural effu jorgel uis COMPARISON: Chest radiograph 07/14/2019, chest CT 07/11/2019 TECHNIQUE: PA and lateral views of the chest FINDINGS: Cardiac silhouette is enlarged, unchanged. Left-sided pleural drainage catheter appears stable. There is decreased size of the left pleural effusion. No pneumothorax. Persistent left midlung and left amos ng base opacities. Multiple bilateral pulmonary nodules redemonstrated. Bones appear grossly intact. IMPRESSION: 1. Stable positioning of the left-sided pleural drainage catheter with mildly decreased size of the l eft pleural effusion. 2. No pneumothorax. 3. Multifocal pulmonary metastasis redemonstrated. The above report was generated using voice recognition software. It may contain grammatical, syntax o r spelling errors. Electronically signed by: Calin Crump M.D. 07/15/2019 10:17 AM
--- NOTE | 2019-07-15 12:47 | CT Scan Report ---
CT GUIDED FINE-NEEDLE ASPIRATION OF LEFT RENAL MASS CLINICAL HISTORY: Left renal mass. COMPARISON STUDY: CT of the abdomen and pelvis July 11, 2019. PROCEDURE: The procedure, risks and benefits were discussed with the patient including the risk of bl eeding, infection and injury to adjacent structures. The patient agreed to the procedure and informed written consent was obtained. The procedure was performed by Dr. Almendarez following a timeout. Axia l unenhanced images through the mid abdomen were obtained in the right lateral decubitus position. Th e left renal mass was targeted. Skin was prepped and draped in sterile fashion and local anesthesia w as achieved with 1% lidocaine. Under intermittent CT guidance, 5 22-gauge fine-needle aspirations wer e performed. Initial 4 passes were nondiagnostic. The fifth pass demonstrated atypical cells suspicio us for renal cell carcinoma. Final pathology is pending. The patient tolerated the procedure well and no immediate complications were evident. IMPRESSION: Successful CT-guided fine-needle aspiration of the left renal mass. Electronically signed by: Dimitri Almendarez M.D. 07/15/2019 12:45 PM
[2019-07-15] MEDS: ENOXAPARIN INJ 40 MG/0.4 ML SYR SQ SCH (14:34)
--- NOTE | 2019-07-15 15:27 | Radiation Oncology Progress Nt ---
Date of Service July 15, 2019 Assessment & Plan (1) Renal cell carcinoma of left kidney: Preliminary diagnosis of RCC obtained from FNA biopsy of left kidney. We will bring patient down tomorrow to start radiation therapy. Palliative radiation therapy to lumbar spine, 10 fractions. Will continue radiation therapy in outpatient setting. Would recommend medical oncology consultation in inpatient or outpatient setting based on patient's hospital disposition. Please call us with any further questions or concerns. Present on Admission?: No
[2019-07-15] MEDS ORDERED: DiphenhydrAMINE 2%/ZINC 0.1% CREAM 28GM TUBE EXT PRN (16:16)
--- NOTE | 2019-07-15 16:27 | Hospitalist Progress Note ---
Date of Service July 15, 2019 Assessment & Plan (1) Left renal mass: Metastatic renal cell carcinoma Presented with intractable low back pain has been ongoing for the last 2 months Developed progressive shortness of breath worsening of symptoms in the last 2 to 3 days In the ER: -CT abd/pelvis showed 8.5 cm lower pole left renal mass suspicious for renal cell carcinoma. -CT scan shows multiple lung nodules more than 20 right lung nodules, largest 18 mm, with large left pleural effusion, -CT lumbar spine showed 3.5 cm L3 lytic lesion concerning for metastatic deposit. -Consulted Urology -appreciate input potentially a candidate for systemic therapy/possible cytoreduction inpatient prior to nephrectomy. Patient underwent CT-guided biopsy of the renal mass Report confirms renal cell carcinoma -Consulted radiation oncologyfor uncontrolled back pain secondary to L3 lytic lesion, metastasis for consideration for palliative radiation. Scheduled for 10 sessions of radiation treatment,-first treatment scheduled for tomorrow Consulted oncologyDr Abdi (2) Pleural effusion: Malignant pleural effusion possibly secondary to metastatic renal cell ca rcinoma Presented on admission with worsening SOB and back pain -CTA chest on admission showed large left pleural effusion with left lung compressive atelectasis -CXR showed Large left pleural effusion with associated left lung atelectasis/consolidation -S/P Left pleural thoracentesis with 3 L of fluid removal on -CXR post thoracentesis done showed decrease in size in the [id number]-[id number] left pleural effusion -Repeat CXR on 07/13 -significant interval increase in size of left pleural effusion with left lung compressive atelectasis. Mild pulmonary congestion/fluid overload. -Pulmonology on board - appreciate inputs Status post Pleurx catheter placed (3) Hypoxia: Acute respiratory failure with hypoxemia secondary to large malignant pleural effusion pt reports of improvement of shortness of breath, orthopnea after thoracentesis Status post initial 3 L of pleural fluid aspiration, Repeat chest x-ray showed recurrence of pleural effusion, leading to Pleurx catheter placement Oxygen 2-3 L as dropped SaO2 to 70s on ambulation She will need to step pulse oximetry testing prior to discharge home (4) Pain management: Presented with significant pain in lower back/left flank. Likely secondary to L3 lytic lesion, metastasis. Radiation oncology plans to do radiation for palliative reasons Started him on OxyContin 15 mg twice daily on 07/13/2019-reports of significant improvement of symptoms On oxycodone as needed for breakthrough pain Reports of rash, itching after taking IV morphine(possible drug reaction) To DC IV morphine PRN IV Dilaudid ordered Added aggressive bowel regimen to prevent narcotic induced constipation Started on Neurontin If current pain regimen does not provide relief, will put consult for pain management (5) Diabetes: A1c 7.1 -Continue to hold metformin and jardiance -lantus/novolog per protocol (6) HTN (hypertension): BP stable -Continue monitor BP (7) Morbid obesity with BMI of 45.0-49.9, adult: BMI 48.6 -Counseling on Lifestyle modifications (8) DVT prophylaxis: -SCDs/Will encourage him to ambulate -Lovenox SQ CODE STATUS - Full code DISPOSITION Expected to be discharged home when medically stable Will need outpatient urology follow-up Radiation oncology follow-up to complete outpatient palliative radiation treatment Medical oncology follow-up for consideration of systemic chemo treatment Will need to step pulse oximetry testing to assess for home oxygen need prior to discharge Plan of care discussed with patient and patient's , in agreement with the above Subjective Back pain is much tolerable today, able to sit up on side of the bed, to the bathroom independently Still significantly hypoxic, requiring 2 L oxygen continuous Desaturates to 86% in room air with minimum ambulation Had CT-guided biopsy of renal mass today Patient is afebrile, vitals remained stable, very pleasant present at bedside Asking about the schedule for radiation treatment Physical Exam Constitutional: WD/WN, vitals as above no acute distress Very pleasant Eyes: PERRL, conjunctivae normal, anicteric sclerae ENMT: external ear and nose normal, oropharynx normal Neck: trachea midline, no thyromegaly Respiratory: Bibasilar crackles present, Pleurx catheter noted on the left chest wall along the axillary line Cardiovascular: RRR, no murmur, no edema Gastrointestinal (Abdomen): Inspection/Auscultation: normal bowel sounds Percussion/Palpation: abdomen soft; abdomen nontender Musculoskeletal: no cyanosis or clubbing, extremities motor strength 5/5 Head/Neck/Chest: normal inspection of chest wall (Pleurx catheter present left chest wall along the midaxillary line) Skin: + rash (Diffuse maculopapular rash mostly on the back, patient reports of itching, noticed since admission patient reports gets severe sweating and itching after IV morphine) Neurologic: patellar DTR's 2+ bilat, sensation intact Psychiatric: A+Ox3, euthymic affect Results & Data Vital Signs (Past 12 Hours) Vital Signs Temp Pulse Resp BP BP Pulse Ox 07/15/19 14:48 36.9 C 89 18 139/75 92 07/15/19 14:16 36.8 C 90 17 129/79 94 07/15/19 13:37 36.7 C 87 20 118/73 93 07/15/19 13:04 36.6 C 92 H 20 118/78 94 07/15/19 11:08 36.4 C L 90 17 127/77 93 07/15/19 07:06 36.9 C 90 17 125/77 93 07/15/19 05:24 143/81 H 94 (1) Diabetes Diabetes mellitus complication status: with hyperglycemia Diabetes mellitus longterm insulin use: without terminologist 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
[2019-07-15] MEDS: POLYETHYLENE (MIRALAX) 17 GM PACK PO SCH (16:41)
[2019-07-15] MEDS: HYDROmorphone INJ 1 MG/ML SYRINGE IV PRN (17:13)
--- NOTE | 2019-07-15 18:39 | Progress Note ---
DATE: 07/15/2019 Mr. Almendarez was reviewed today. He is better after the PleurX catheter was placed. Drained 2000 mL yesterday after inserted it and then another 1000 today. He is on room air again. Dr. Be Almendarez kindly performed a CT guided biopsy of the left kidney and it appears we do have malignant cells. I am hopeful we can make a diagnosis with this. We did not get a diagnosis from our pleural fluid. I am hopeful that Dr. Angulo will consider radiation for his spine. [facility]
--- NOTE | 2019-07-15 20:24 | Pulmonology Progress Note ---
Date of Service July 15, 2019 Assessment & Plan (1) Pleural effusion: Left-sided Pleurx catheter inserted 07/14/2019 Continue daily drainage of catheter limiting to 1 L/day Fluid today again appears serosanguineous Initial pathology showed no malignancy Pathology from yesterday's placement of Pleurx catheter is pending -continue to follow Slight improvement in pleural effusion after placement of Pleurx catheter No need for daily x-ray at this point as long as catheter continues to be f unctional Continue supplemental oxygen only as needed (2) Multiple lung nodules on CT: Consistent with metastatic disease Renal biopsy today with malignancy Await fluid analysis from pleural fluid from Pleurx catheter for pathology We will await comment from oncology regarding treatment for renal cell carcinoma No indication for biopsy or bronchoscopy at this time Follow per recommendations of oncologist (3) Renal cell carcinoma of left kidney: Diagnosed with biopsy today with positive malignant cells Consult oncology Further management per their advice (4) DVT prophylaxis: No malignancy with renal cell carcinoma with probable metastatic spread Continue Lovenox 40 mg subcutaneous daily Ambulate as tolerated Follow clinically Thank you for including us in the care of this patient. We will sign off at this time and follow the patient outpatient for Pleurx catheter. We will see the patient casually. Please reconsult as needed. Please refer to Dr. Rosenberg's addendum for further recommendations. Subjective Pleurx catheter placed yesterday in the left pleural space. Drained 1000 cc of serosanguineous drainage this morning without pain, shortness of breath, or difficulty. Patient denies fever, chills, sweats, rigors. Breathing has improved. Patient able to ambulate in hallway to end of [place]. Continues with supplemental oxygen but at lower levels since Pleurx catheter inserted. Patient states the pain is generally controlled at the insertion site. No other acute complaints. Review of Systems Review of Systems: All systems reviewed & are unremarkable except as noted in HPI & below Physical Exam Physical Exam: GENERAL : No acute distress EYES: No icterus, gaze conjugate NOSE: No evidence of epistaxis MOUTH: No lesions or candidiasis NECK: Supple LUNGS: CTA B/L, no wheezes, rales or rhonchi. Continues to be diminished at left base HEART: Regular, rate controlled ABDOMEN: Soft, NT, ND, BS Present. Dressing secure intact over insertion site of Pleurx catheter. No pain on palpation. No evidence of hematoma. EXTREMITIES: No LE edema, pedal pulses intact NEURO: A&OX3 Results & Data Vital Signs (Past 12 Hours) Vital Signs Temp Pulse Resp BP BP Pulse Ox 07/15/19 18:51 36.9 C 92 H 22 124/78 94 07/15/19 14:48 36.9 C 89 18 139/75 92 07/15/19 14:16 36.8 C 90 17 129/79 94 07/15/19 13:37 36.7 C 87 20 118/73 93 07/15/19 13:04 36.6 C 92 H 20 118/78 94 07/15/19 11:08 36.4 C L 90 17 127/77 93 Laboratory Results 07/15/19 06:42 07/15/19 06:42 Diagnostic Findings XR chest 2V routine HISTORY: 38 years-old Male Left pleural effusion follow-up study in a patient with left pleural effusion COMPARISON: Chest radiograph 07/14/2019, chest CT 07/11/2019 TECHNIQUE: PA and lateral views of the chest FINDINGS: Cardiac silhouette is enlarged, unchanged. Left-sided pleural drainage catheter appears stable. There is decreased size of the left pleural effusion. No pneumothorax. Persistent left midlung and left lung base opacities. Multiple bilateral pulmonary nodules redemonstrated. Bones appear grossly intact. IMPRESSION: 1. Stable positioning of the left-sided pleural drainage catheter with mildly decreased size of the left pleural effusion. 2. No pneumothorax. 3. Multifocal pulmonary metastasis redemonstrated. The above report was generated using voice recognition software. It may contain grammatical, syntax or spelling errors. Electronically signed by: Calin Crump M.D. 07/15/2019 10:17 AM PG Care Time/CCT Total # of Minutes Spent Total Time Spent with Patient: Total time spent is greater than 50% in coordination of care (as documented) at patient's floor/unit and/or counseling patient: 20
[2019-07-15] MEDS: INSULIN GLARGINE SOLOSTAR 100 UNITS/ML 3 ML PEN SQ SCH (20:44)
[2019-07-15] MEDS: SENNA 8.6 MG TAB PO SCH (20:46)
[2019-07-15] MEDS: LISINOPRIL 2.5 MG TAB PO SCH (20:47)
[2019-07-16] MEDS ORDERED: SOD PHOSPHATE/SOD BIPHOSPHATE ENEMA 132 ML BTL PR STA (00:18)
[2019-07-16] MEDS: OXYCODONE HCL 15 MG TABCR (OXYCONTIN) PO SCH ×2 (00:49→12:11)
[2019-07-16] MEDS: HYDROmorphone INJ 1 MG/ML SYRINGE IV PRN ×3 (05:40→19:56)
[2019-07-16] MEDS: DOCUSATE SODIUM 100 MG CAP PO SCH ×2 (08:08→21:39)
[2019-07-16] MEDS: GABAPENTIN 300 MG CAP PO SCH ×3 (08:08→21:39)
[2019-07-16] MEDS: POLYETHYLENE (MIRALAX) 17 GM PACK PO SCH ×4 (08:08→21:37)
[2019-07-16] MEDS: INSULIN ASPART 100 UNITS/ML 3 ML PEN SC SCH ×4 (08:09→20:50)
--- NOTE | 2019-07-16 09:10 | Surgery Progress Note ---
Date of Service July 16, 2019 Assessment & Plan (1) Left renal mass: -needle biopsy performed by radiology yesterday--path is pending -due to pleural effusion, a left pleurex was placed by pulmonary: -they have arranged outpt. follow-up -please call if we can be of further assistance Results & Data Vital Signs (Past 12 Hours) Vital Signs Temp Pulse Resp BP BP Pulse Ox 07/16/19 07:29 36.6 C 89 20 133/83 96 07/16/19 04:00 36.6 C 101 H 20 126/73 92
[2019-07-16] MEDS ORDERED: BISACODYL 5 MG TABEC PO ONE ×2 (09:12)
[2019-07-16] MEDS ORDERED: MAGNESIUM HYDROXIDE SUSP 30 ML UDC PO PRN (09:12)
--- NOTE | 2019-07-16 14:39 | Hospitalist Progress Note ---
Date of Service July 16, 2019 Assessment & Plan (1) Left renal mass: Metastatic renal cell carcinoma Presented with intractable low back pain has been ongoing for the last 2 months Developed progressive shortness of breath worsening of symptoms in the last 2 to 3 days In the ER: -CT abd/pelvis showed 8.5 cm lower pole left renal mass suspicious for renal cell carcinoma. -CT scan shows multiple lung nodules more than 20 right lung nodules, largest 18 mm, with large left pleural effusion, -CT lumbar spine showed 3.5 cm L3 lytic lesion concerning for metastatic deposit. -Consulted Urology -appreciate input potentially a candidate for systemic therapy/possible cytoreduction inpatient prior to nephrectomy. Patient underwent CT-guided biopsy of the renal mass on 07/15/2019 Report confirms renal cell carcinoma -Consulted radiation oncologyfor uncontrolled back pain secondary to L3 lytic lesion, metastasis for consideration for palliative radiation. Scheduled for 10 sessions of radiation treatment,-first treatment scheduled for today Medical oncology consulted, awaiting input (2) Pleural effusion: Malignant pleural effusion possibly secondary to metastatic renal cell carcinoma Presented on admission with worsening SOB and back pain -CTA chest on admission showed large left pleural effusion with left lung compressive atelectasis -CXR showed Large left pleural effusion with associated left lung atelectasis/consolidation -S/P Left pleural thoracentesis with 3 L of fluid removal on -CXR post thoracentesis done showed decrease in size in the [id number] left pleural effusion -Repeat CXR on 07/13 -significant interval increase in size of left pleural effusion with left lung compressive atelectasis. Mild pulmonary congestion/ fluid overload. -Pulmonology on board - appreciate inputs Status post Pleurx catheter placed Patient is getting 1 L of fluid drained every day, teaching provided to patient's for home Pleurx catheter management (3) Constipation due to pain medication: Patient developed severe constipation last bowel movement on 07/12/2019 possibly secondary to narcotic pain medication which he has been requiring for metastatic bone lesion on L3 spine Ordered for scheduled bowel regimen: MiraLAX 4 times daily, Colace twice daily, senna at nighttime Patient received Fleet enema last night with no result Given 10 mg of Dulcolax this morning, Able to have bowel movement Continue aggressive bowel regimen as patient will continue to require significant amount of narcotic pain medication for cancer pain (4) Hypoxia: Acute respiratory failure with hypoxemia secondary to large malignant pleural effusion pt reports of improvement of shortness of breath, orthopnea after thoracentesis Status post initial 3 L of pleural fluid aspiration, Repeat chest x-ray showed recurrence of pleural effusion, leading to Pleurx c atheter placement Oxygen 2-3 L as dropped SaO2 to 70s on ambulation will need to step pulse oximetry testing prior to discharge home (5) Pain management: Presented with significant pain in lower back/left flank. Likely secondary to L3 lytic lesion, metastasis. Radiation oncology plans to do radiation for palliative reasons Started him on OxyContin 15 mg twice daily on 07/13/2019-reports of significant improvement of symptoms On oxycodone as needed for breakthrough pain Reports of rash, itching after taking IV morphine(possible drug reaction) To DC IV morphine PRN IV Dilaudid ordered Added aggressive bowel regimen to prevent narcotic induced constipation Started on Neurontin If current pain regimen does not provide relief, will put consult for pain management (6) Diabetes: A1c 7.1 -Continue to hold metformin and jardiance -lantus/novolog per protocol (7) HTN (hypertension): BP stable -Continue monitor BP (8) Morbid obesity with BMI of 45.0-49.9, adult: BMI 48.6 -Counseling on Lifestyle modifications (9) DVT prophylaxis: -SCDs/Will encourage him to ambulate -Lovenox SQ CODE STATUS - Full code DISPOSITION Expected to be discharged home when medically stable Will need outpatient urology follow-up Radiation oncology follow-up to complete outpatient palliative radiation treatment Medical oncology follow-up for consideration of systemic chemo treatment Will need 2 step pulse oximetry testing to assess for home oxygen need prior to discharge Plan of care discussed with patient and patient's , in agreement with the above Subjective Had significant issues with constipation overnight and 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 and 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 and discomfort Had multiple dose of stool softener, laxative To have a bowel movement later today, Feels much better now Back pain remains well controlled Scheduled for radiation treatment today Review of Systems Review of Systems: All systems reviewed & are unremarkable except as noted in HPI & below Physical Exam Constitutional: WD/WN, vitals as above no acute distress Eyes: PERRL, conjunctivae normal, anicteric sclerae ENMT: external ear and nose normal, oropharynx normal Neck: trachea midline, no thyromegaly Cardiovascular: RRR, no murmur, no edema Gastrointestinal (Abdomen): Inspection/Auscultation: normal bowel sounds Percussion/Palpation: abdomen soft; abdomen nontender Musculoskeletal: no cyanosis or clubbing, extremities motor strength 5/5 Head/Neck/Chest: normal inspection of chest wall (Pleurx catheter present left chest wall along the midaxillary line) Skin: Rash on back and torso has markedly improved Neurologic: patellar DTR's 2+ bilat, sensation intact Psychiatric: A+Ox3, euthymic affect Results & Data Vital Signs (Past 12 Hours) Vital Signs Temp Pulse Resp BP BP Pulse Ox 07/16/19 11:53 36.5 C 90 18 136/79 91 07/16/19 07:29 36.6 C 89 20 133/83 96 07/16/19 04:00 36.6 C 101 H 20 126/73 92 (1) Diabetes Diabetes mellitus complication status: with hyperglycemia 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
[2019-07-16] MEDS: ENOXAPARIN INJ 40 MG/0.4 ML SYR SQ SCH (15:47)
--- NOTE | 2019-07-16 17:36 | Hospitalist Progress Note ---
Date of Service July 16, 2019 Subjective FINAL DIAGNOSIS KIDNEY, LEFT, MASS, CT-GUIDED ASPIRATION: 1. MALIGNANT CELLS PRESENT CONSISTENT WITH RENAL CELL CARCINOMA. 2. SEE COMMENT. COMMENT: The vast majority of the specimen consists of blood. On the fourth aspirate pass are loosely cohesive groups of atypical epithelial cells with variably clear cytoplasm. Nuclear pleomorphism and nuclear membrane irregularities, including longitudinal nuclear folds are readily evident. Scattered mitotic figures are noted. The cell block consists of blood and there is insufficient material to perform any ancillary testing. The clinical history is noted. The cytologic findings are consistent with a renal cell carcinoma. This case was reviewed as an intradepartmental consultation. Medical oncology consulted, awaiting input Patient and family updated regarding biopsy finding Stephanie Mayer MD Results & Data Vital Signs (Past 12 Hours) Vital Signs Temp Pulse Resp BP Pulse Ox 07/16/19 15:16 36.8 C 91 H 19 131/79 93 07/16/19 11:53 36.5 C 90 18 136/79 91 07/16/19 07:29 36.6 C 89 20 133/83 96
[2019-07-16] MEDS ORDERED: HYDROCORTISONE HC 2.5% CRM 30GM TUBE EXT PRN (18:27)
[2019-07-16] MEDS: INSULIN GLARGINE SOLOSTAR 100 UNITS/ML 3 ML PEN SQ SCH (21:36)
[2019-07-16] MEDS: SENNA 8.6 MG TAB PO SCH (21:39)
[2019-07-16] MEDS: LISINOPRIL 2.5 MG TAB PO SCH (21:39)
[2019-07-16] MEDS: BISACODYL 5 MG TABEC PO SCH (22:07)
[2019-07-17] MEDS: OXYCODONE HCL 15 MG TABCR (OXYCONTIN) PO SCH ×2 (00:06→13:47)
[2019-07-17] MEDS: HYDROmorphone INJ 1 MG/ML SYRINGE IV PRN ×4 (04:13→22:40)
[2019-07-17] MEDS: OXYCODONE HCL IR 5 MG TAB (IMMEDIATE RELEASE) PO PRN (07:44)
[2019-07-17] MEDS: INSULIN ASPART 100 UNITS/ML 3 ML PEN SC SCH ×4 (08:54→20:45)
[2019-07-17] MEDS: DOCUSATE SODIUM 100 MG CAP PO SCH ×2 (08:55→20:40)
[2019-07-17] MEDS: POLYETHYLENE (MIRALAX) 17 GM PACK PO SCH ×4 (08:55→20:41)
[2019-07-17] MEDS: GABAPENTIN 300 MG CAP PO SCH ×3 (08:55→20:40)
[2019-07-17] MEDS: ENOXAPARIN INJ 40 MG/0.4 ML SYR SQ SCH (15:44)
--- NOTE | 2019-07-17 18:15 | Hospitalist Progress Note ---
Date of Service July 17, 2019 Assessment & Plan (1) Left renal mass: Metastatic renal cell carcinoma FINAL DIAGNOSIS KIDNEY, LEFT, MASS, CT-GUIDED ASPIRATION: 1. MALIGNANT CELLS PRESENT CONSISTENT WITH RENAL CELL CARCINOMA. 2. SEE COMMENT. COMMENT: The vast majority of the specimen consists of blood. On the fourth aspirate pass are loosely cohesive groups of atypical epithelial cells with variably clear cytoplasm. Nuclear pleomorphism and nuclear membrane irregularities, including longitudinal nuclear folds are readily evident. Scattered mitotic figures are noted. The cell block consists of blood and there is insufficient material to perform any ancillary testing. The clinical history is noted. The cytologic findings are consistent with a renal cell carcinoma. This case was reviewed as an intradepartmental consultation. Medical oncology consulted, awaiting input Patient and family updated regarding biopsy finding Presented with intractable low back pain has been ongoing for the last 2 months Developed progressive shortness of breath worsening of symptoms in the last 2 to 3 days In the ER: -CT abd/pelvis showed 8.5 cm lower pole left renal mass suspicious for renal cell carcinoma. -CT scan shows multiple lung nodules more than 20 right lung nodules, largest 18 mm, with large left pleural effusion, -CT lumbar spine showed 3.5 cm L3 lytic lesion concerning for metastatic deposit. -Consulted Urology -appreciate input potentially a candidate for systemic therapy/possible cytoreduction inpatient prior to nephrectomy. Patient underwent CT-guided biopsy of the renal mass on 07/15/2019 Pathology report as above -Consulted radiation oncologyfor uncontrolled back pain secondary to L3 lytic lesion, metastasis for consideration for palliative radiation. Scheduled for 10 sessions of radiation treatment, got treatment 01/04 today Medical oncology consulted, awaiting input (2) Pleural effusion: Malignant pleural effusion possibly secondary to metastatic renal cell carcinoma Presented on admission with worsening SOB and back pain -CTA chest on admission showed large left pleural effusion with left lung compressive atelectasis -CXR showed Large left pleural effusion with associated left lung atelectasis/consolidation -S/P Left pleural thoracentesis with 3 L of fluid removal on -CXR post thoracentesis done showed decrease in size in the [id number] left pleural effusion -Repeat CXR on 07/13 -significant interval increase in size of left pleural effusion with left lung compressive atelectasis. Mild pulmonary congestion/fluid overload. -Pulmonology on board - appreciate inputs Status post Pleurx catheter placed Patient is getting 1 L of fluid drained every day, teaching provided to patient's for home Pleurx catheter management And will need continued pulmonology follow-up for Pleurx catheter management: With Dr. De La Rosa at [facility] pulmonology clinic (3) Constipation due to pain medication: Resolved: Continue scheduled bowel regimen: MiraLAX 4 times daily, Colace twice daily, senna at nighttime 07/16/2019 Patient developed severe constipation last bowel movement on 07/12/2019 possibly secondary to narcotic pain medication which he has been requiring for metastatic bone lesion on L3 spine Patient is ordered : MiraLAX 4 times daily, Colace twice daily, senna at nighttime Patient received Fleet enema last night with no result Given 10 mg of Dulcolax this morning, Able to have bowel movement Continue aggressive bowel regimen as patient will continue to require significant amount of narcotic pain medication for cancer pain (4) Hypoxia: Acute respiratory failure with hypoxemia secondary to large malignant pleural effusion pt reports of improvement of shortness of breath, orthopnea after thoracentesis Status post initial 3 L of pleural fluid aspiration, Repeat chest x-ray showed recurrence of pleural effusion, leading to Pleurx catheter placement Oxygen 2-3 L as dropped SaO2 to 70s on ambulation will need to step pulse oximetry testing prior to discharge home (5) Pain management: Presented with significant pain in lower back/left flank. Likely secondary to L3 lytic lesion, metastasis. Radiation oncology plans to do radiation for palliative reasons Started him on OxyContin 15 mg twice daily on 07/13/2019-reports of significant improvement of symptoms On oxycodone as needed for breakthrough pain Reports of rash, itching after taking IV morphine(possible drug reaction) To DC IV morphine PRN IV Dilaudid ordered Added aggressive bowel regimen to prevent narcotic induced constipation Started on Neurontin If current pain regimen does not provide relief, will put consult for pain management (6) Diabetes: A1c 7.1 -Continue to hold metformin and jardiance -lantus/novolog per protocol (7) HTN (hypertension): BP stable -Continue monitor BP (8) Morbid obesity with BMI of 45.0-49.9, adult: BMI 48.6 -Counseling on Lifestyle modifications (9) DVT prophylaxis: -SCDs/Will encourage him to ambulate -Lovenox SQ CODE STATUS - Full code DISPOSITION Expected to be discharged home when medically stable Will need outpatient urology follow-up Radiation oncology follow-up to complete outpatient palliative radiation treatment Medical oncology follow-up for consideration of systemic chemo treatment Will need 2 step pulse oximetry testing to assess for home oxygen need prior to discharge Plan of care discussed with patient and patient's , in agreement with the above Subjective Had an uneventful night, Back pain has been moderately controlled, patient managed to get out of bed and walk on the hallway Able to have bowel movements, No complaint of nausea vomiting or abdominal pain No fever or chills Scheduled for palliative radiation to the lumbar spine today Physical Exam Constitutional: WD/WN, vitals as above no acute distress Eyes: PERRL, conjunctivae normal, anicteric sclerae ENMT: external ear and nose normal, oropharynx normal Neck: trachea midline, no thyromegaly Cardiovascular: RRR, no murmur, no edema Gastrointestinal (Abdomen): Inspection/Auscultation: normal bowel sounds Percussion/Palpation: abdomen soft; abdomen nontender Musculoskeletal: no cyanosis or clubbing, extremities motor strength 5/5 Head/Neck/Chest: normal inspection of chest wall (Pleurx catheter present left chest wall along the midaxillary line) Skin: + rash (Diffuse maculopapular rash mostly on the back, patient reports of itching, noticed since admission patient reports gets severe sweating and itching after IV morphine) Neurologic: patellar DTR's 2+ bilat, sensation intact Psychiatric: A+Ox3, euthymic affect Results & Data Vital Signs (Past 12 Hours) Vital Signs Temp Pulse Resp BP BP Pulse Ox 07/17/19 15:34 36.8 C 89 20 106/51 L 94 07/17/19 11:00 36.7 C 86 20 134/79 92 07/17/19 07:00 36.7 C 86 20 134/79 92 (1) Diabetes Diabetes mellitus complication status: with hyperglycemia Diabetes mellitus jail insulin use: without jail 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
[2019-07-17] MEDS: SENNA 8.6 MG TAB PO SCH (20:41)
[2019-07-17] MEDS: INSULIN GLARGINE SOLOSTAR 100 UNITS/ML 3 ML PEN SQ SCH (20:42)
[2019-07-17] MEDS: LISINOPRIL 2.5 MG TAB PO SCH (20:47)
[2019-07-17] MEDS: BISACODYL 5 MG TABEC PO SCH (20:47)
[2019-07-18] MEDS: OXYCODONE HCL 15 MG TABCR (OXYCONTIN) PO SCH ×2 (01:24→13:34)
[2019-07-18] MEDS: HYDROmorphone INJ 1 MG/ML SYRINGE IV PRN (06:48)
[2019-07-18] MEDS: DOCUSATE SODIUM 100 MG CAP PO SCH ×2 (07:51→21:25)
[2019-07-18] MEDS: GABAPENTIN 300 MG CAP PO SCH ×3 (07:51→21:27)
[2019-07-18] MEDS: POLYETHYLENE (MIRALAX) 17 GM PACK PO SCH ×4 (07:52→21:27)
[2019-07-18 08:02] LABS: Hematocrit (blood only) 37.2 % (42-52); Hemoglobin 12.3 g/dL (14.0-18.0); Mean Corpuscular Hgb Conc 33.1 g/dL (32-36); Mean Corpuscular Volume 76.7 fL (80-100); Mean Platelet Volume 8.8 fL (7.4-10.4); Platelet Count 253 K/uL (130-400); RDW Standard Deviation 44.4 fL (36.4-46.3); Red Blood Count 4.85 M/uL (4.7-6.1); White Blood Count 6.21 K/uL (4.8-10.8)
[2019-07-18 08:34] LABS: Creatinine Clr Calc Pharmacy 225.5 ml/min; Est GFR (African American) 131.3; Est GFR (Non-African American) 113.3
[2019-07-18] MEDS: INSULIN ASPART 100 UNITS/ML 3 ML PEN SC SCH ×4 (08:54→21:33)
[2019-07-18] MEDS: OXYCODONE HCL IR 5 MG TAB (IMMEDIATE RELEASE) PO PRN ×3 (11:18→22:38)
[2019-07-18] MEDS: ENOXAPARIN INJ 40 MG/0.4 ML SYR SQ SCH (15:56)
--- NOTE | 2019-07-18 17:42 | Hospitalist Progress Note ---
Date of Service July 18, 2019 Assessment & Plan (1) Left renal mass: Metastatic renal cell carcinoma FINAL DIAGNOSIS KIDNEY, LEFT, MASS, CT-GUIDED ASPIRATION: 1. MALIGNANT CELLS PRESENT CONSISTENT WITH RENAL CELL CARCINOMA. 2. SEE COMMENT. COMMENT: The vast majority of the specimen consists of blood. On the fourth aspirate pass are loosely cohesive groups of atypical epithelial cells with variably clear cytoplasm. Nuclear pleomorphism and nuclear membrane irregularities, including longitudinal nuclear folds are readily evident. Scattered mitotic figures are noted. The cell block consists of blood and there is insufficient material to perform any ancillary testing. The clinical history is noted. The cytologic findings are consistent with a renal cell carcinoma. This case was reviewed as an intradepartmental consultation. Patient and family ()updated regarding Medical oncology consulted for recommendation for chemo treatment Patient and his prefers to have consult hematology oncology from [facility] 1 of the patient's family has been followed by Dr. Martinez Family is comfortable with that care Also feels as he is being followed with [facility] radiation oncology/urology working with [facility] metal oncology and will be easy for continuation of care and communication between providers [facility] hematology oncology consult requested Patient presented with intractable low back pain has been ongoing for the last 2 months Developed progressive shortness of breath worsening of symptoms in the last 2 to 3 days In the ER: -CT abd/pelvis showed 8.5 cm lower pole left renal mass suspicious for renal cell carcinoma. -CT scan shows multiple lung nodules more than 20 right lung nodules, largest 18 mm, with large left pleural effusion, -CT lumbar spine showed 3.5 cm L3 lytic lesion concerning for metastatic deposit. -Consulted Urology -appreciate input potentially a candidate for systemic therapy/possible cytoreduction inpatient prior to nephrectomy. Patient underwent CT-guided biopsy of the renal mass on 07/15/2019 Pathology report as above -Consulted radiation oncologyfor uncontrolled back pain secondary to L3 lytic lesion, metastasis for consideration for palliative radiation. Scheduled for 10 sessions of radiation treatment, got treatment 01/04 Medical oncology consult with [facility] (2) Pleural effusion: Malignant pleural effusion possibly secondary to metastatic renal cell carcinoma Presented on admission with worsening SOB and back pain -CTA chest on admission showed large left pleural effusion with left lung compressive atelectasis -CXR showed Large left pleural effusion with associated left lung atelectasis/consolidation -S/P Left pleural thoracentesis with 3 L of fluid removal on -CXR post thoracentesis done showed decrease in size in the [id number] left pleural effusion -Repeat CXR on 07/13 -significant interval increase in size of left pleural effusion with left lung compressive atelectasis. Mild pulmonary congestion/fluid overload. -Pulmonology on board - appreciate inputs Status post Pleurx catheter placed Patient is getting 1 L of fluid drained every day, teaching provided to patient's for home Pleurx catheter management And will need continued pulmonology follow-up for Pleurx catheter management: With Dr. De La Rosa at [facility] pulmonology clinic (3) Constipation due to pain medication: Resolved: Continue scheduled bowel regimen: MiraLAX 4 times daily, Colace twice daily, senna at nighttime 07/16/2019 Patient developed severe constipation last bowel movement on 07/12/2019 possibly secondary to narcotic pain medication which he has been requiring for metastatic bone lesion on L3 spine Patient is ordered : MiraLAX 4 times daily, Colace twice daily, senna at nighttime Patient received Fleet enema last night with no result Given 10 mg of Dulcolax this morning, Able to have bowel movement Continue aggressive bowel regimen as patient will continue to require significant amount of narcotic pain medication for cancer pain (4) Hypoxia: Acute respiratory failure with hypoxemia secondary to large malignant pleural effusion pt reports of improvement of shortness of breath, orthopnea after thoracentesis Status post initial 3 L of pleural fluid aspiration, Repeat chest x-ray showed recurrence of pleural effusion, leading to Pleurx catheter placement Oxygen 2-3 L as dropped SaO2 to 70s on ambulation will need 2 step pulse oximetry testing prior to discharge home (5) Pain management: Presented with significant pain in lower back/left flank. Likely secondary to L3 lytic lesion, metastasis. Radiation oncology plans to do radiation for palliative reasons Started him on OxyContin 15 mg twice daily on 07/13/2019-reports of significant improvement of symptoms On oxycodone as needed for breakthrough pain Reports of rash, itching after taking IV morphine(possible drug reaction) To DC IV morphine PRN IV Dilaudid ordered Added aggressive bowel regimen to prevent narcotic induced constipation Started on Neurontin If current pain regimen does not provide relief, will put consult for pain management (6) Diabetes: A1c 7.1 -Continue to hold metformin and jardiance -lantus/novolog per protocol (7) HTN (hypertension): BP stable -Continue monitor BP (8) Morbid obesity with BMI of 45.0-49.9, adult: BMI 48.6 -Counseling on Lifestyle modifications (9) DVT prophylaxis: -SCDs/Will encourage him to ambulate -Lovenox SQ CODE STATUS - Full code DISPOSITION Expected to be discharged home when medically stable Will need outpatient urology follow-up Radiation oncology follow-up to complete outpatient palliative radiation treatment Medical oncology follow-up for consideration of systemic chemo treatment Will need 2 step pulse oximetry testing to assess for home oxygen need prior to discharge Plan of care discussed with patient and patient's , in agreement with the above Subjective Back pain much better today, Sitting up on chair, able to walk in the hallway requiring p.o. pain meds only Has not required IV Dilaudid Normal bowel movement, no complaint of abdominal pain, tolerating diet, no fever chills Review of Systems Review of Systems: All systems reviewed & are unremarkable except as noted in HPI & below Physical Exam Constitutional: WD/WN, vitals as above no acute distress Eyes: PERRL, conjunctivae normal, anicteric sclerae ENMT: external ear and nose normal, oropharynx normal Neck: trachea midline, no thyromegaly Cardiovascular: RRR, no murmur, no edema Gastrointestinal (Abdomen): Inspection/Auscultation: normal bowel sounds Percussion/Palpation: abdomen soft; abdomen nontender Musculoskeletal: no cyanosis or clubbing, extremities motor strength 5/5 Head/Neck/Chest: normal inspection of chest wall (Pleurx catheter present left chest wall along the midaxillary line) Neurologic: patellar DTR's 2+ bilat, sensation intact Psychiatric: A+Ox3, euthymic affect Results & Data Vital Signs (Past 12 Hours) Vital Signs Temp Pulse Resp BP Pulse Ox 07/18/19 15:01 36.8 C 82 16 121/81 95 07/18/19 07:08 36.5 C 90 18 120/71 91 (1) Diabetes Diabetes mellitus complication status: with hyperglycemia Diabetes mellitus terminal carman insulin use: without fpc 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
[2019-07-18] MEDS: INSULIN GLARGINE SOLOSTAR 100 UNITS/ML 3 ML PEN SQ SCH (21:26)
[2019-07-18] MEDS: SENNA 8.6 MG TAB PO SCH (21:27)
[2019-07-18] MEDS: LISINOPRIL 2.5 MG TAB PO SCH (21:28)
[2019-07-18] MEDS: BISACODYL 5 MG TABEC PO SCH (21:32)
[2019-07-19] MEDS: OXYCODONE HCL 15 MG TABCR (OXYCONTIN) PO SCH ×2 (01:09→14:51)
[2019-07-19] MEDS: OXYCODONE HCL IR 5 MG TAB (IMMEDIATE RELEASE) PO PRN ×3 (08:11→21:41)
[2019-07-19] MEDS: POLYETHYLENE (MIRALAX) 17 GM PACK PO SCH ×4 (08:12→20:41)
[2019-07-19] MEDS: GABAPENTIN 300 MG CAP PO SCH ×3 (08:12→20:43)
[2019-07-19] MEDS: DOCUSATE SODIUM 100 MG CAP PO SCH ×2 (08:12→20:41)
[2019-07-19] MEDS: INSULIN ASPART 100 UNITS/ML 3 ML PEN SC SCH ×4 (09:19→20:43)
--- NOTE | 2019-07-19 11:53 | Oncology Consultation ---
Date of Consultation July 19, 2019 Assessment & Plan (1) Renal cell carcinoma of left kidney: Mr. Almendarez appears to have metastatic renal cell carcinoma. The tissue sample that was obtained was scanty and does not confirm metastatic disease. It might be optimal to sample one of his lung nodules and I will discuss that with Dr. Lemus. However, if no additional tissue can be safely obtained, I am comfortable proceeding with the available information. We discussed the treatment of metastatic RCC. We will start with either combination immunotherapy or immunotherapy and TKI therapy. Given that the mass in his kidney is relatively smaller and his DM and obesity, he may not be an ideal candidate for cytoreductive nephrectomy. That procedure has been shown to improve outcomes in some patients, but most typically those where the disproportionate majority of their disease is in their kidney mass. We can discuss this in more detail as an outpatient. I will make arrangements for him to see me in the office RAJANI to make plans for treatment. Present on Admission?: Yes History of Present Illness Reason for Consultation: Metastatic renal cell carcinoma Attending Physician: Stephanie Mayer MD History of Present Illness Mr. Almendarez is a 38 year old obese gentleman with a history of type 2 DM. He's had some slowly worsening low back pain for the last few months. He then became progressively short of breath, eventually bringing him to the ER on 07/09. Scans there revealed a large left pleural effusion, innumerable pulmonary nodules, a 3.5 cm lytic lesion in his L3 vertebral body, and a mass in his leftt kidney suggestive of an RCC. He underwent two thoracenteses that did not reveal malignant cells. On 07/15, he underwent a CT-guided FNA of the left kidney mass. Most of the sample was blood, but a few clusters of cells were found that were consistent with clear cell RCC. He denies any hematuria or other urinary changes. He has lost around 20 lb over the last few months. He started palliative RT to the L3 lesion and is starting to feel better. He was cons tipated initially from narcotics, but is moving his bowels more regularly now. Allergies Allergy/AdvReac Type Severity Reaction Status Date / Time No Known Allergies Allergy Verified 07/09/19 18:27 Home Medications Home Medications Medication Instructions Recorded Confirmed Type acetaminophen [Tylenol Extra 1,000 mg PO Q6H PRN 06/28/19 07/09/19 History Strength] empagliflozin [Jardiance] 25 mg PO DAILY 06/28/19 07/09/19 History lidocaine [Lidoderm] 1 patch TOP DAILY #10 ea 06/28/19 07/09/19 Rx metformin 1,000 mg PO BID 06/28/19 07/09/19 History cyclobenzaprine 10 mg PO TID PRN 07/09/19 07/09/19 History gabapentin 300 mg PO TID 07/09/19 07/09/19 History ibuprofen 800 mg PO Q8H PRN 07/09/19 07/09/19 History Patient History Medical History Morbid obesity with BMI of 45.0-49.9, adult (Chronic) HTN (hypertension) (Chronic) Diabetes (Chronic) Surgical History History of cholecystectomy (Chronic) History of arthroscopic knee surgery (Chronic) Family History Father No problems noted. 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 Feels Safe at Home: Yes Smoking Status: Never smoker (SMOKED SOCIALLY OVER 9 YEARS AGO) Hx Alcohol Use: No Hx Substance Use: No Review of Systems Constitutional: + fatigue and + weight loss; no fever Respiratory: no dyspnea and no hemoptysis Cardiovascular: no chest pain and no edema Gastrointestinal: no nausea, no constipation and no diarrhea/loose stools Genitourinary: no dysuria and no hematuria Musculoskeletal: + back pain Integumentary: no rash and no changing lesions Neurologic: no dizziness and no headache(s) Physical Exam Constitutional: + obese and comfortable; no acute distress Eyes: + anicteric sclerae and EOM intact bilaterally Respiratory: normal respiratory effort Auscultation: lungs clear to auscultation bilaterally Cardiovascular: RRR, no murmur, no edema Gastrointestinal (Abdomen): Inspection/Auscultation: normal bowel sounds Percussion/Palpation: abdomen soft; abdomen nontender Skin: no rashes, warm and dry Psychiatric: A+Ox3, euthymic affect Results & Data Vital Signs (Past 12 Hours) Vital Signs Temp Pulse Resp BP Pulse Ox 07/19/19 11:25 36.3 C L 87 18 121/73 93 07/19/19 07:12 36.8 C 83 16 142/78 H 95 07/19/19 03:17 36.6 C 90 18 133/77 94 Laboratory Results Laboratory Tests 07/14/19 07/18/19 05:39 07:25 WBC 6.21 Hgb 12.3 L Plt Count 253 Creatinine 0.84 Calcium 8.6 Diagnostic Findings I reviewed his CTs from earlier in the stay, which are quite suspicious for widely metastatic RCC.
--- NOTE | 2019-07-19 14:50 | Hospitalist Progress Note ---
Date of Service July 19, 2019 Assessment & Plan (1) Left renal mass: Metastatic renal cell carcinoma FINAL DIAGNOSIS KIDNEY, LEFT, MASS, CT-GUIDED ASPIRATION: 1. MALIGNANT CELLS PRESENT CONSISTENT WITH RENAL CELL CARCINOMA. 2. SEE COMMENT. COMMENT: The vast majority of the specimen consists of blood. On the fourth aspirate pass are loosely cohesive groups of atypical epithelial cells with variably clear cytoplasm. Nuclear pleomorphism and nuclear membrane irregularities, including longitudinal nuclear folds are readily evident. Scattered mitotic figures are noted. The cell block consists of blood and there is insufficient material to perform any ancillary testing. The clinical history is noted. The cytologic findings are consistent with a renal cell carcinoma. This case was reviewed as an intradepartmental consultation. Patient and family ()updated regarding Medical oncology consulted for recommendation for chemo treatment-appreciate input from Dr. Martinez Recommends possible biopsy of lung nodule, as biopsy sample from liver nodule was very small sample Plan of care will be discussed with Dr. Gerber in the morning Patient will be treated with immunotherapy and chemo treatment as an outpatient Will be seen at [facility] oncology clinic after discharge from hospital Patient presented with intractable low back pain has been ongoing for the last 2 months Developed progressive shortness of breath worsening of symptoms in the last 2 to 3 days In the ER: -CT abd/pelvis showed 8.5 cm lower pole left renal mass suspicious for renal cell carcinoma. -CT scan shows multiple lung nodules more than 20 right lung nodules, largest 18 mm, with large left pleural effusion, -CT lumbar spine showed 3.5 cm L3 lytic lesion concerning for metastatic deposit. -Consulted Urology -appreciate input potentially a candidate for systemic therapy/possible cytoreduction inpatient prior to nephrectomy. Patient underwent CT-guided biopsy of the renal mass on 07/15/2019 Pathology report as above -Consulted radiation oncologyfor uncontrolled back pain secondary to L3 lytic lesion, metastasis for consideration for palliative radiation. Scheduled for 10 sessions of radiation treatment, got treatment 01/04 Medical oncology consult with [facility]-input appreciated (2) Pleural effusion: Malignant pleural effusion possibly secondary to metastatic renal cell carcinoma Presented on admission with worsening SOB and back pain -CTA chest on admission showed large left pleural effusion with left lung compressive atelectasis -CXR showed Large left pleural effusion with associated left lung atelectasis/consolidation -S/P Left pleural thoracentesis with 3 L of fluid removal on -CXR post thoracentesis done showed decrease in size in the [id number] left pleural effusion -Repeat CXR on 07/13 -significant interval increase in size of left pleural effusion with left lung compressive atelectasis. Mild pulmonary congestion/fluid overload. -Pulmonology on board - appreciate inputs Status post Pleurx catheter placed Patient is getting 1 L of fluid drained every day, teaching provided to patient's for home Pleurx catheter management And will need continued pulmonology follow-up for Pleurx catheter management: With Dr. De La Rosa at [facility] pulmonology clinic (3) Constipation due to pain medication: Resolved: Continue scheduled bowel regimen: MiraLAX 4 times daily, Colace twice daily, senna at nighttime 07/16/2019 Patient developed severe constipation last bowel movement on 07/12/2019 possibly secondary to narcotic pain medication which he has been requiring for metastatic bone lesion on L3 spine Patient is ordered : MiraLAX 4 times daily, Colace twice daily, senna at nighttime Patient received Fleet enema last night with no result Given 10 mg of Dulcolax this morning, Able to have bowel movement Continue aggressive bowel regimen as patient will continue to require significant amount of narcotic pain medication for cancer pain (4) Hypoxia: Acute respiratory failure with hypoxemia secondary to large malignant pleural effusion pt reports of improvement of shortness of breath, orthopnea after thoracentesis Status post initial 3 L of pleural fluid aspiration, Repeat chest x-ray showed recurrence of pleural effusion, leading to Pleurx catheter placement Oxygen 2-3 L as dropped SaO2 to 70s on ambulation will need 2 step pulse oximetry testing prior to discharge home (5) Pain management: Presented with significant pain in lower back/left flank. Likely secondary to L3 lytic lesion, metastasis. Radiation oncology plans to do radiation for palliative reasons Started him on OxyContin 15 mg twice daily on 07/13/2019-reports of significant improvement of symptoms On oxycodone as needed for breakthrough pain Reports of rash, itching after taking IV morphine(possible drug reaction) To DC IV morphine PRN IV Dilaudid ordered Added aggressive bowel regimen to prevent narcotic induced constipation Started on Neurontin If current pain regimen does not provide relief, will put consult for pain management (6) Diabetes: A1c 7.1 -Continue to hold metformin and jardiance -lantus/novolog per protocol (7) HTN (hypertension): BP stable -Continue monitor BP (8) Morbid obesity with BMI of 45.0-49.9, adult: BMI 48.6 -Counseling on Lifestyle modifications (9) DVT prophylaxis: -SCDs/Will encourage him to ambulate -Lovenox SQ CODE STATUS - Full code DISPOSITION Possible discharge home tomorrow after radiation treatment Will need outpatient urology follow-up Radiation oncology follow-up to complete outpatient palliative radiation treatment Medical oncology follow-up with Dr. Martinez at [facility] oncology clinic for consideration of systemic chemo treatment Ordered for 2 step pulse oximetry testing in a.m. to assess for home oxygen need Plan of care discussed with patient and patient's , in agreement with the above Subjective Doing well today has not required any IV Dilaudid, Utilizing very limited amount of p.o. pain meds Back pain reasonably well controlled Or fever or chills, no shortness of breath Having normal bowel movement, no abdominal pain or discomfort no nausea vomiting tolerating diet Patient evaluated by hematology oncology today Physical Exam Constitutional: WD/WN, vitals as above no acute distress Eyes: PERRL, conjunctivae normal, anicteric sclerae ENMT: external ear and nose normal, oropharynx normal Neck: trachea midline, no thyromegaly Cardiovascular: RRR, no murmur, no edema Gastrointestinal (Abdomen): Inspection/Auscultation: normal bowel sounds Percussion/Palpation: abdomen soft; abdomen nontender Musculoskeletal: no cyanosis or clubbing, extremities motor strength 5/5 Head/Neck/Chest: normal inspection of chest wall (Pleurx catheter present left chest wall along the midaxillary line) Neurologic: patellar DTR's 2+ bilat, sensation intact Psychiatric: A+Ox3, euthymic affect Results & Data Vital Signs (Past 12 Hours) Vital Signs Temp Pulse Resp BP Pulse Ox 07/19/19 11:25 36.3 C L 87 18 121/73 93 07/19/19 07:12 36.8 C 83 16 142/78 H 95 07/19/19 03:17 36.6 C 90 18 133/77 94 (1) Diabetes Diabetes mellitus complication status: with hyperglycemia Diabetes mellitus salvage determiner insulin use: without residential 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
[2019-07-19] MEDS: ENOXAPARIN INJ 40 MG/0.4 ML SYR SQ SCH (14:51)
[2019-07-19] MEDS: SENNA 8.6 MG TAB PO SCH (20:42)
[2019-07-19] MEDS: INSULIN GLARGINE SOLOSTAR 100 UNITS/ML 3 ML PEN SQ SCH (20:45)
[2019-07-19] MEDS: LISINOPRIL 2.5 MG TAB PO SCH (20:46)
[2019-07-19] MEDS: BISACODYL 5 MG TABEC PO SCH (20:47)
[2019-07-20] MEDS: OXYCODONE HCL 15 MG TABCR (OXYCONTIN) PO SCH ×2 (00:57→13:53)
[2019-07-20] MEDS: OXYCODONE HCL IR 5 MG TAB (IMMEDIATE RELEASE) PO PRN ×2 (05:09→10:09)
--- NOTE | 2019-07-20 07:19 | XRay Report ---
XR chest 1V portable HISTORY: pleural effusion COMPARISON: Chest 07/15/2019. FINDINGS: Left-sided chest tube is unchanged in position with the tip terminating near the left lung apex. Large left pleural effusion has slightly increased in size. Left basilar densities persist. The heart remains enlarged. No pneumothorax. Mild central pulmonary vascular congestion persists. Multip le bilateral pulmonary nodules consistent with metastatic disease are again noted. IMPRESSION: 1. Slight increase in size in the large left pleural effusion. Left-sided chest tube is unchanged in position. 2. Mild pulmonary vascular congestion, unchanged. 3. Multiple bilateral pulmonary nodules are again noted. Electronically signed by: Marco Antonio Alonso M.D. 07/20/2019 7:18 AM
[2019-07-20] MEDS: POLYETHYLENE (MIRALAX) 17 GM PACK PO SCH ×2 (07:52→13:54)
[2019-07-20] MEDS: GABAPENTIN 300 MG CAP PO SCH ×2 (07:52→13:54)
[2019-07-20] MEDS: DOCUSATE SODIUM 100 MG CAP PO SCH (07:52)
[2019-07-20] MEDS: INSULIN ASPART 100 UNITS/ML 3 ML PEN SC SCH ×2 (08:05→12:08)
[2019-07-20] MEDS ORDERED: fentaNYL 12 MCG/HR TDSY TD STA (16:58)
[2019-07-20] MEDS ORDERED: OXYCODONE HCL 15 MG TABCR (OXYCONTIN) PO SCH (17:00)
[2019-07-20] MEDS ORDERED: Nursing to Pharmacy Communication ONE (17:04)
--- NOTE | 2019-07-20 17:17 | Progress Note ---
DATE: 07/20/2019 Mr. Almendarez was seen today on 07/20/2019. He is being discharged today. The patient has renal cell carcinoma which had been diagnosed via a needle biopsy. He has an effusion which has been tested to be free of malignant cells x2 on the left. He had PleurX catheter. I initially did a thoracentesis and drained 3000 mL and he had a PleurX which drained 2000. I was surprised that yesterday he only drained 1000 and today, we only got 500 of a serobloody fluid. The patient's hemoglobin has been relatively stable. Over the last 3 days, he has gone from 12.5 to 12.3. I had a long talk with the patient and his today. I was a bit disappointed with the x-ray as he still has a significant left pleural effusion, but the CT scan shows he has probable pleural implants. We had a long talk about this and I am going to allow him to be discharged today. I will see him back in the office next week and we will set up our PleurX drainage. I discussed this case with Dr. Gerald Martinez from oncology. The patient had bone mets and had radiation, it has improved. There were some questions to be answered about this patient. He is young, but he is huge. He is 6 feet 6 inches, over 400 pounds and his kidney is fairly small. There is a question about whether he would undergo a cytoreductive nephrectomy. The problem was our tissue sample does not confirm the metastatic disease. We are making assumptions. Dr. Martinez was wondering about a lung nodule biopsy via thoracoscopy. I am going to discuss this with the patient in the office. We will then make a decision about whether to proceed with a left thoracoscopy, which is one way we could take care of his pleural effusion a bit more effectively. We would also have a better drainage of his fusion and placement of a catheter. This 3.5 cm lytic lesion in the L3 vertebral body is certainly suggestive of a renal cell carcinoma and the FNA, while scanty, is does seem consistent with a clear cell renal cell carcinoma. We will see the patient back in the next several days and set him up for a left thoracoscopy depending on how he does.
--- NOTE | 2019-07-20 18:12 | Discharge Summary ---
Date of Service July 20, 2019 Admission HPI Per Admitting Provider This is a 38-year-old male who has significant past medical history of T2DM, HTN, morbid obesity who presents to [facility] ED secondary to left low back pain x2 months. Patient states he has been dealing with constant left low back pain that radiates down the lateral aspect of left leg. Pain is worse with movement, standing or going to sit down, worse at night. He is tried numerous [id number] modalities including NSAIDs, muscle relaxers, chiropractor and PT, lidocaine patches without relief. He denies any numbness or tingling. No loss of bowel or bladder or saddle anesthesia. Over the past 2 days he has notably been getting increasingly short of breath at rest and with exertion and dry cough. Coughing makes pain worse. Denies fever, chills, sweats, lightheadedness, dizziness, syncope, chest pain, palpitations, hemoptysis, nausea, vomiting, diarrhea, dysuria, hematuria, increased urgency or frequency with urination. His appetite is otherwise been normal he denies any weight loss. Principal Diagnosis METASTATIC LEFT KIDNEY TUMOR (MALIGNANCY)/RENAL CELL CARCINOMA/WITH METASTASIS TO LIVER/RECURRENT PLEURAL EFFUSION/PLEURX CATHETER PLACEMENT Discharge Exam Constitutional WD/WN, vitals as above no acute distress Eyes PERRL, conjunctivae normal, anicteric sclerae ENMT external ear and nose normal, oropharynx normal Neck trachea midline, no thyromegaly Cardiovascular RRR, no murmur, no edema Gastrointestinal (Abdomen) Inspection/Auscultation: normal bowel sounds Percussion/Palpation: abdomen soft; abdomen nontender Musculoskeletal no cyanosis or clubbing, extremities motor strength 5/5 Head/Neck/Chest: normal inspection of chest wall (Pleurx catheter present left chest wall along the midaxillary line) Skin + rash (Diffuse maculopapular rash mostly on the back, patient reports of itching, noticed since admission patient reports gets severe sweating and itching after IV morphine) Neurologic patellar DTR's 2+ bilat, sensation intact Psychiatric A+Ox3, euthymic affect Discharge Data Allergies Allergy/AdvReac Type Severity Reaction Status Date / Time No Known Allergies Allergy Verified 07/09/19 18:27 Consultations 07/09/19 21:27 ED Decision to Admit Stat 07/10/19 00:06 Consult Pulmonology Routine 07/10/19 09:27 Consult Thoracic Surgery Routine 07/10/19 13:10 Consult Urology Routine 07/10/19 19:54 Consult Radiation Oncology Routine 07/14/19 12:37 Consult Case Management - Discharge Planning Routine 07/18/19 16:28 Consult Oncology Routine Ordered Studies 07/09/19 18:57 CT abd pelvis IV con only Stat CT angio chest PE protocol Stat CT lumbar spine wo con Stat 07/11/19 13:15 CT abdomen pelvis wo/w con Routine CT chest w con Routine 07/13/19 CT guide rad therapy pelvis Routine 07/14/19 10:57 US point of care ultrasound Routine 07/15/19 CT limited or localized study Routine 07/15/19 07:49 CT guided FNA 1st lesion Urgent Hospital Course (1) Left renal mass: Metastatic renal cell carcinoma FINAL DIAGNOSIS KIDNEY, LEFT, MASS, CT-GUIDED ASPIRATION: 1. MALIGNANT CELLS PRESENT CONSISTENT WITH RENAL CELL CARCINOMA. 2. SEE COMMENT. COMMENT: The vast majority of the specimen consists of blood. On the fourth aspirate pass are loosely cohesive groups of atypical epithelial cells with variably clear cytoplasm. Nuclear pleomorphism and nuclear membrane irregularities, including longitudinal nuclear folds are readily evident. Scattered mitotic figures are noted. The cell block consists of blood and there is insufficient material to perform any ancillary testing. The clinical history is noted. The cytologic findings are consistent with a renal cell carcinoma. This case was reviewed as an intradepartmental consultation. Patient and family ()updated regarding biopsy report Medical oncology consulted for recommendation for chemo treatment-appreciate input from Dr. Martinez Patient will be treated with immunotherapy and chemo treatment as an outpatient Will be seen at [facility] oncology clinic after discharge from hospital Patient presented with intractable low back pain has been ongoing for the last 2 months Developed progressive shortness of breath worsening of symptoms in the last 2 to 3 days In the ER: -CT abd/pelvis showed 8.5 cm lower pole left renal mass suspicious for renal cell carcinoma. -CT scan shows multiple lung nodules more than 20 right lung nodules, largest 18 mm, with large left pleural effusion, -CT lumbar spine showed 3.5 cm L3 lytic lesion concerning for metastatic deposit. -Consulted Urology -appreciate input potentially a candidate for systemic therapy/possible cytoreduction inpatient prior to nephrectomy. Patient underwent CT-guided biopsy of the renal mass on 07/15/2019 Pathology report as above -Consulted radiation oncologyfor uncontrolled back pain secondary to L3 lytic lesion, metastasis for consideration for palliative radiation. Scheduled for 10 sessions of radiation treatment, Received 3 session of radiation treatment while in hospital Patient will complete rest of the radiation treatment as outpatient Follow-up with medical oncology with [facility]-Dr. Nidia whitney (2) Pleural effusion: Reduced Pleurx catheter output noted today, evaluated by Dr. Meza cardiothoracic surgery Chest x-ray issues worsening of confusion the left side Does not have any hypoxia, not required any oxygen supplementation Patient will be seen by Dr. Meza in his office in 1 to 2 weeks Plan for possible thoracoscopic with pleural biopsy and further drainage of loculated pleural effusion Malignant pleural effusion possibly secondary to metastatic renal cell carcinoma Presented on admission with worsening SOB and back pain -CTA chest on admission showed large left pleural effusion with left lung compressive atelectasis -CXR showed Large left pleural effusion with associated left lung atelectasis/consolidation -S/P Left pleural thoracentesis with 3 L of fluid removal on -CXR post thoracentesis done showed decrease in size in the wxaob-vu-zvhymcbn left pleural effusion -Repeat CXR on 07/13 -significant interval increase in size of left pleural effusion with left lung compressive atelectasis. Mild pulmonary congestion/fluid overload. Status post Pleurx catheter placed CT surgery following appreciate input (3) Constipation due to pain medication: Resolved: Continue scheduled bowel regimen: MiraLAX 4 times daily, Colace twice daily, senna at nighttime 07/16/2019 Patient developed severe constipation last bowel movement on 07/12/2019 possibly secondary to narcotic pain medication which he has been requiring for metastatic bone lesion on L3 spine Patient is ordered : MiraLAX 4 times daily, Colace twice daily, senna at nighttime Patient received Fleet enema last night with no result Given 10 mg of Dulcolax this morning, Able to have bowel movement Continue aggressive bowel regimen as patient will continue to require significant amount of narcotic pain medication for cancer pain (4) Hypoxia: Acute respiratory failure with hypoxemia secondary to large malignant pleural effusion pt reports of improvement of shortness of breath, orthopnea after thoracentesis Status post initial 3 L of pleural fluid aspiration, Repeat chest x-ray showed recurrence of pleural effusion, leading to Pleurx catheter placement Oxygen 2-3 L as dropped SaO2 to 70s on ambulation Patient's hypoxia resolved after drainage of pleural effusion through Pleurx catheter To step exercise shows no requirement for home O2 no desaturation noted Patient remains with adequate oxygenation in room air (5) Pain management: Presented with significant pain in lower back/left flank. Likely secondary to L3 lytic lesion, metastasis. Radiation oncology plans to do radiation for palliative reasons Started him on OxyContin 15 mg twice daily on 07/13/2019-reports of significant improvement of symptoms On oxycodone as needed for breakthrough pain Patient reports adequate pain control with above regimen OxyContin 15 mg twice daily prescription sent to patient's pharmacy, received call from [facility] pharmacy at [place], patient will need prior Auth for OxyContin Will take a few days Patient will be discharged home with fentanyl patch 12 mcg Will be followed by his family physician Dr. Black for further adjustments of pain medication (6) Diabetes: A1c 7.1 -Home diabetic medications resumed on discharge -Was treated with Lantus/novolog per protocol while inpatient (7) HTN (hypertension): BP stable (8) Morbid obesity with BMI of 45.0-49.9, adult: BMI 48.6 -Counseling on Lifestyle modifications (9) DVT prophylaxis: -SCDs/patient is ambulating independently CODE STATUS - Full code DISPOSITION Stable to be discharged home today Hospital follow-up scheduled with patient's family physician Dr. Black on Saturday Patient will be followed with urology at the [facility] Radiation oncology follow-up to complete outpatient palliative radiation treatment Medical oncology follow-up with Dr. Martinez at [facility] oncology clinic for consideration of systemic chemo treatment Cardiothoracic surgery follow-up with Dr. Gerber Plan of care discussed with patient and patient's , in agreement with the above Total Time Total Time Spent Total Time Spent (In Minutes): Approximately 40 minutes Total Time Includes: Examination of the Patient, Discharge Planning, Medication Reconciliation and Communication With Other Providers Discharge Plan Discharge Items Patient Disposition: Home - Home Health Services Reason For Visit: RESP FAILURE Discharge Diagnosis: METASTATIC LEFT KIDNEY TUMOR (MALIGNANCY)/RENAL CELL CARCINOMA/WITH METASTASIS TO LIVER/RECURRENT PLEURAL EFFUSION/PLEURX CATHETER PLACEMENT Discharge Goals: Decrease discomfort and Therapeutic intervention Activity: Resume your previous activity Non-emergency contact: Primary Care Provider Call non-emergency contact if: you have any medication questions Follow-up/Referrals: Precious Angulo MD [Physician] - Myles Lemus MD, FACS [Surgeon] - Gilmar Cochran II, DO [Physician] - Terry Black MD [Primary Care Provider] - 07/24/19 11:05 am (Hospital follow-up with Dr. Black on 07/24/2019 at 11:05 AM) Gerald Martinez [Physician] - Diet: Regular Addtl Provider Instructions: Hospital follow-up with Dr. Black on 07/24/2019 at 11:05 AM Hematology oncology follow-up with Dr. Martinez in clinic, office will call with appointment Please complete radiation treatment as per schedule Follow-up with Dr. Gerber for Pleurx catheter management, please call office if you notice any increased pain swelling or drainage around the catheter Urology Dr. Cochran office will contact you after chemo treatment to coordinate for possible urology procedure You may need a port placement prior to chemo treatment Dr. Martinez's office will be able to arrange with surgical team it is very common to get severely constipated secondary to pain medications List for multiple bowel regimen added in the discharge medication lists: all of which has been given to you during your hospital stay You may add or alternate any of the qdfo-dld-[id number] bowel regimen which will work for you Please drink plenty of fluids, add extra fiber to your diet, and more vegetables and fruits-which has natural fiber to prevent constipation Prescriptions: New bisacodyl 5 mg Tablet,Delayed Release (Dr/Ec) 5 mg PO HS 30 Days Qty: 30 RF: 0 oxycodone 5 mg Tablet 10 mg PO Q6 PRN (Reason: pain) Qty: 90 RF: 0 oxycodone [OxyContin] 15 mg Tablet,Oral Only,Ext.Rel.12 Hr 15 mg PO Q12H 30 Days Qty: 60 RF: 0 docusate sodium 100 mg Capsule 100 mg PO BID 30 Days Qty: 60 RF: 0 sennosides [Senokot] 8.6 mg Tablet 8.6 mg PO HS 30 Days Qty: 30 RF: 0 polyethylene glycol 3350 [Miralax] 17 gram Powder In Packet 17 g PO QID 30 Days Qty: 120 RF: 0 magnesium hydroxide [Milk of Magnesia] 400 mg/5 mL Suspension 30 ml PO Q6H PRN (Reason: constipation) 30 Days Qty: 300 RF: 0 Continued lidocaine [Lidoderm] 5 % adhesive patch,medicated 1 patch TOP DAILY Qty: 10 RF: 0 acetaminophen [Tylenol Extra Strength] 500 mg Tablet 1,000 mg PO Q6H PRN (Reason: Pain) RF: 0 metformin 1,000 mg Tablet 1,000 mg PO BID RF: 0 Jardiance 25 mg tablet 25 mg PO DAILY RF: 0 cyclobenzaprine 10 mg tablet 10 mg PO TID PRN (Reason: Muscle Spasm) RF: 0 gabapentin 300 mg capsule 300 mg PO TID RF: 0 Discontinued ibuprofen 800 mg tablet 800 mg PO Q8H PRN (Reason: Pain) RF: 0 Stand-Alone Forms: [facility] Discharge Orders: Discharge Order (Routine); Ordered 07/20/19 Ordered By: Stephanie Mayer Admission Data Admit Date/Time: 07/09/19 22:24 Attending Provider: Stephanie Mayer Admit Provider: Myles Kessler Primary Care Provider: Terry Black Other Providers: Keira Angulo ; Myles Kessler ; Myles Pan ; Myles Lemus ; Gilmar Cochran II ; Leeanne Patrick ; Precious Angulo ; Star Corey ; Gerald Martinez Service: Telemetry Medical Other Interventions: Discharge Summary Assessment (RN) Last Done: 07/20/19 16:15
[2019-07-21] MEDS ORDERED: CHECK FENTANYL PATCH PLACEMENT SCH
== END 2019-07-20 17:25 | disposition home health service (06) | DRG 686 ==
LOC: ED 17:59 → SUATTDRO 22:24 → 2W 22:24

== ENCOUNTER 2019-07-23 10:58 | Inpatient (IN) ==
[2019-07-23] MEDS ORDERED: ENOXAPARIN INJ 40 MG/0.4 ML SYR SQ SCH (11:45)
[2019-07-23] MEDS ORDERED: ALUMINUM/MAGNESIUM SUSP 30 ML UDC PO PRN (11:45)
[2019-07-23] MEDS ORDERED: MAGNESIUM HYDROXIDE SUSP 30 ML UDC PO PRN (11:45)
[2019-07-23] MEDS ORDERED: GLUCAGON FOR INJ 1 MG VIAL SQ PRN (11:51)
[2019-07-23] MEDS ORDERED: GLUCOSE 10 TABS/TUBE PO PRN (11:51)
[2019-07-23] MEDS ORDERED: CARBOHYDRATES FOR HYPOGLYCEMIA PO PRN (11:51)
[2019-07-23] MEDS ORDERED: GLUCOSE 40% GEL 15 GM TUBE PO PRN (11:51)
[2019-07-23] MEDS ORDERED: DEXTROSE 50% 50 ML SYRINGE IV PRN (11:51)
[2019-07-23] MEDS ORDERED: PROCHLORPERAZINE MALEATE 5 MG TAB PO PRN (12:38)
--- NOTE | 2019-07-23 12:44 | CT Scan Report ---
CT chest wo con CT DOSE: 1296.10 mGy.cm HISTORY: Pleural effusion. Pulmonary nodularity. pleural effusion TECHNIQUE: Multiaxial CT images of the chest were performed without contrast. A dose lowering techni que was utilized adhering to the principles of ALARA. COMPARISON: 07/11/2019 FINDINGS: Interval placement of a left-sided drainage catheter. No major change in the slightly hyper dense left effusion which occupies the bulk of the left hemithorax. There is been a slight cardia mediastinal silhouette shift to the right. There are progressive foci of pleural thickening and/or loculated effusion type change seen circumfer entially throughout the left hemithorax and left upper lung. Diffuse pulmonary nodularity is stable to slightly progressive despite the short timeframe from the p rior exam. Interval development of a trace amount pleural fluid right lung base. Compressive atelectasis of the bulk of the left hemithoracic pulmonary structures is present. No evidence for pneumothorax. IMPRESSION: 1. Moderately progressive pleural thickening and compressive atelectasis of all major structures of t he left hemithorax. 2. Mild increasing cardiomediastinal silhouette shift to the right. 3. Diffuse pulmonary nodularity slightly progressive. 4. Interval small right effusion. 5. Left hemithoracic drainage catheter placed with no significant change in volume of the left hemith oracic effusion type change. The above report was generated using voice recognition software. It may contain grammatical, syntax or spelling errors. Electronically signed by: Martin Duarte M.D. 07/23/2019 12:42 PM
[2019-07-23 13:34] LABS: Basophils # (auto) 0.02 K/uL (0-0.2); Basophils % (auto) 0.3 %; Eosinophils # (auto) 0.21 K/uL (0-0.5); Eosinophils % (auto) 3.3 %; Hematocrit (blood only) 36.4 % (42-52); Hemoglobin 12.3 g/dL (14.0-18.0); Immature Granulocytes # (auto) 0.01 K/uL (0.00-0.02); Immature Granulocytes % (auto) 0.2 %; Lymphocytes # (auto) 0.77 K/uL (1.2-3.4); Lymphocytes % (auto) 12.2 %; Mean Corpuscular Hgb Conc 33.8 g/dL (32-36); Mean Corpuscular Volume 77.3 fL (80-100); Mean Platelet Volume 8.5 fL (7.4-10.4); Monocytes # (auto) 0.46 K/uL (0.11-0.59); Monocytes % (auto) 7.3 %; Neutrophils # (auto) 4.86 K/uL (1.4-6.5); Neutrophils % (auto) 76.7 %; Platelet Count 292 K/uL (130-400); RDW Coefficient of Variation 16.2 % (11.5-14.5); RDW Standard Deviation 45.9 fL (36.4-46.3); Red Blood Count 4.71 M/uL (4.7-6.1); White Blood Count 6.33 K/uL (4.8-10.8)
[2019-07-23 13:47] LABS: INR 1.2 (0.9-1.1); Partial Thromboplastin Time 26.3 Seconds (21.0-31.0); Prothrombin Time 12.6 Seconds (9.0-12.0)
[2019-07-23] MEDS ORDERED: ONDANSETRON INJ 2 MG/ML 2 ML VIAL IV STA (13:50)
--- NOTE | 2019-07-23 13:58 | Radiation Oncology Progress Nt ---
Date of Service July 23, 2019 Assessment & Plan (1) Renal cell carcinoma of left kidney: Assessment: Mr. Almendarez is a 38-year-old gentleman with metastatic renal cell carcinoma to the lumbar spine. The patient is currently receiving palliative external beam radiation therapy to the lumbar spine. He has received 5/10 fractions of radiation therapy. The patient has been admitted to the hospital due to issues with his Pleurx catheter and will require an inpatient admission to resolve issues related to his breathing and the Pleurx catheter. Plan: I have spoken with the medical team and they have cleared us to bring the patient down for radiation therapy given the fact that his medical problems are unrelated to radiation therapy. The patient will be brought down today for radiation therapy. Please call us with any further questions or concerns.
[2019-07-23 14:00] LABS: Albumin Level 2.7 gm/dl (3.4-5.0); BUN Creatinine Ratio 12.2 (10-20); Calcium 8.6 mg/dl (8.5-10.1); Creatinine Clr Calc Pharmacy 188.8 ml/min; Est GFR (African American) 117.2; Est GFR (Non-African American) 101.1
[2019-07-23 14:03] LABS: Albumin Globulin Ratio 0.7 (0.9-2); Bilirubin,Total 0.4 mg/dl (0.2-1); Total Protein 6.7 gm/dl (6.4-8.2)
--- NOTE | 2019-07-23 14:14 | History & Physical Report ---
Date of Service July 23, 2019 Assessment & Plan (1) Renal cell carcinoma of left kidney: (2) Metastatic cancer: (3) Pleural effusion: This is a 30-year-old male who has significant past medical history of T2DM, HTN, morbid obesity and new diagnosis of metastatic renal cell carcinoma to lung and lumbar spine who presents to [facility] as a direct admission from pulmonology office. Pt with metastatic renal cell ca to lung and lumbar spine, newly diagnosed during recent admission receiving palliative radiation to the lumbar spine which has significantly improved pain control During recent admission left Pleurx cath placed for recurrently large left pleural effusion, now not functioning appropriately Referred for direct admission by Pulmonology CT scan chest reveals: 1. Moderately progressive pleural thickening and compressive atelectasis of all major structures of the left hemithorax. 2. Mild increasing cardiomediastinal silhouette shift to the right.3. Diffuse pulmonary nodularity slightly progressive. 4. Interval small right effusion. 5. Left he mithoracic drainage catheter placed with no significant change in volume of the left hemithoracic effusion type change. admitted to med/surg Thoracic Consulted Dr. Lemus/Jez Nayak PA-C consult pulm Plan for VATS procedure in a.m. NPO after midnight Pt will continue palliative radiation, Dr. Angulo contacted and consulted [facility] before radiation Labs ordered (4) Constipation due to pain medication: continue colace and miralax (5) Pain management: Continue OxyContin 15 mg every 12 hours Oxycodone 10 mg every 6 hours as needed Palliative radiation as ordered by radiation oncology Continue bowel regimen of Colace and MiraLAX (6) Diabetes: A1C 7.1 Hold metformin and jardiance lantus/novolog per protocol (7) HTN (hypertension): previous dx of HTN had been on lisinopril BP has been controlled without oral antihypertensives monitor (8) DVT prophylaxis: SCD/TEDS for now will hold off on chemical prophylaxis due to procedure in a.m. Disposition: D/C to home when able Follow up: PCP Dr. Black upon discharge Patient was seen and examined in collaboration with Dr. Mota, please see addendum History of Present Illness Chief Complaint: Referral by Cottage Master due to pleurx cath not draining Primary Care Provider: Terry Black MD This is a 30-year-old male who has significant past medical history of T2DM, HTN, morbid obesity and new diagnosis of metastatic renal cell carcinoma to lung and lumbar spine who presents to [facility] as a direct admission from pulmonology office. Of significance patient was hospitalized in [facility] from 07/09 to 07/20/2019 secondary to back pain. Upon admission work-up patient was diagnosed with renal mass, large left pleural effusion and lytic lesion of lumbar spine concerning for metastasis. He underwent further work-up by pulmonology, urology and thoracic and was diagnosed with metastatic renal cell carcinoma by biopsy. Due to large pleural effusion he required thoracentesis with initially 3 L removed. Subsequently Pleurx catheter was placed by Dr. Lemus. Pleurx catheter been functioning well at discharge until 2 days ago when he noticed significant decrease in output. On 07/21 he had 500ml out put and past two days very scant output. The past 2 days has been having increased shortness of breath with exertion. Also of note during his recent hospitalization he was seen by radiation oncology in which she started palliative radiation to the lumbar spine which has improved his pain significantly. He was also placed on narcotic regimen for improved pain control. Currently complaints of shortness with exertion, but otherwise he offers no other complaints. Has been otherwise doing well after discharge. Denies fever, chills, sweats, lightheadedness, dizziness, chest pain, shortness breath at rest, emesis, abdominal pain, change in bowel or urinary habits. He does get nauseated with radiation and therefore takes Compazine 1 hour prior. He is currently on bowel regimen of Colace and MiraLAX daily to prevent opiate- induced constipation. Appetite has been otherwise diminished. is at bedside. Allergies Allergy/AdvReac Type Severity Reaction Status Date / Time morphine Allergy Verified 07/23/19 09:27 Home Medications Home Medications Medication Instructions Recorded Confirmed Type Jardiance 25 mg PO DAILY 06/28/19 07/23/19 History cyclobenzaprine 10 mg PO TID PRN 07/09/19 07/23/19 History gabapentin 300 mg PO TID 07/09/19 07/23/19 History oxycodone 10 mg PO Q6 PRN #90 tab 07/20/19 07/23/19 Rx oxycodone [OxyContin] 15 mg PO Q12H 30 Days #60 tab 07/20/19 07/23/19 Rx metformin 1,000 mg tablet 1,000 mg PO BIDM tab 07/21/19 07/23/19 History prochlorperazine maleate 5 mg 5 mg PO Q8H PRN #30 tab 07/21/19 07/23/19 Rx tablet docusate sodium 100 mg PO DAILY 07/23/19 07/23/19 History polyethylene glycol 3350 [Miralax] 17 g PO DAILY 07/23/19 07/23/19 History levofloxacin 500 mg tablet 500 mg PO DAILY #10 tab 07/28/19 07/28/19 Rx Past Med/Surg History Medical History Morbid obesity with BMI of 45.0-49.9, adult (Chronic) HTN (hypertension) (Chronic) Diabetes (Chronic) Metastatic renal cell carcinoma Pleural effusion Renal cell cancer Surgical History History of cholecystectomy (Chronic) History of arthroscopic knee surgery (Chronic) Hx of chest tube placement Family History Father No problems noted. 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 Other Information That Helps Us Care for You: No Feels Safe at Home: Yes Safety Concerns: Feels Safe At This Time Smoking Status: Never smoker Do You Dip or Chew Tobacco: No ; Second Hand Exposure: No ; Tobacco Cessation Education Requested by Patient: No Hx Alcohol Use: No Hx Substance Use: No Review of Systems Review of Systems: All systems reviewed & are unremarkable except as noted in HPI & below Physical Exam Physical Exam: Constitutional: WD/WN, vitals as above, morbidly obese, male, NAD, sitting up in bed, pleasant, conversing easily Head: Normocephalic, Atraumatic Eyes: PERRL, conjunctivae normal, anicteric sclerae ENMT: external ear and nose normal, oropharynx normal Neck: trachea midline, no thyromegaly normal visual inspection Respiratory: normal respiratory effort, lungs clear to auscultation with decreased breath sounds left lower lobe, no wheeze, rales, rhonchi. Normal insp/exp effort, no accessory muscle use on O2 via NC Cardiovascular: RRR, no murmur, no edema Vessels: no JVD or carotid bruit Chest: normal inspection of chest, L pleurx cath in place Abdomen: Obese abdomen, normal bowel sounds, soft, nontender, no hepatosplenomegaly Musculoskeletal: no cyanosis or clubbing, extremities motor strength 5/5 Skin: no rashes, warm and dry normal turgor Neurologic: PERRL, EOMI, accommodation nl, no face palsy, no dysarthria CN's II-XI intact bilaterally and moves all extremities Psychiatric: A+Ox3, euthymic affect Lymphatic: no cervical or axillary lymphadenopathy : deferred Results & Data Vital Signs (Past 12 Hours) Vital Signs Temp Resp Pulse Ox 07/23/19 11:38 36.7 C 20 95 Laboratory Results Short CBC 07/23/19 Range/Units 13:27 WBC 6.33 (4.8-10.8) K/uL Hgb 12.3 L (14.0-18.0) g/dL Hct 36.4 L (42-52) % Plt Count 292 (130-400) K/uL BMP 07/23/19 13:27 Sodium 137 Potassium 4.0 Chloride 102 Carbon Dioxide 28 BUN 12 Creatinine 0.95 Glucose 110 H Calcium 8.6 Liver Function 07/23/19 Range/Units 13:27 Total Bilirubin 0.4 (0.2-1) mg/dl AST 11 L (15-37) U/L ALT 14 (12-78) U/L Alkaline Phosphatase 107 (45-117) U/L Albumin 2.7 L (3.4-5.0) gm/dl Diagnostic Findings Chest CT: IMPRESSION: 1. Moderately progressive pleural thickening and compressive atelectasis of all major structures of the left hemithorax. 2. Mild increasing cardiomediastinal silhouette shift to the right. 3. Diffuse pulmonary nodularity slightly progressive. 4. Interval small right effusion. 5. Left hemithoracic drainage catheter placed with no significant change in volume of the left hemithoracic effusion type change. Code Status & VTE Plan Code Status Full Code VTE Prophylaxis Plan VTE Prophylaxis will be ordered: Yes Supervising Physician Co-Signing Physician Notes Pt was seen and examined. Agreed with Nelli MAYA exam, assessment and plan. 38-year-old male who has significant past medical history of T2DM, HTN, morbid obesity and new diagnosis of metastatic renal cell carcinoma to lung and lumbar spine , was recently discharged at [facility] on 07/20/19 presents to [facility] as a direct admission from pulmonology office for worsening SOB. he said that his Pleurx catheter was working well until 2 days ago when he noticed significant decrease in output. CT chest done showed moderately progressive pleural thickening and compressive atelectasis of all major structures of the left hemithorax. Left hemithoracic drainage catheter placed with no significant change in volume of the left hemithoracic effusion type change. Vascular surgery consulted. Case discussed with thoracic surgery dr. Lemus who plan for left video-assisted thoracoscopy with decortication tomorrow. Will make NPO after midnight. Pulmonology consult. Continue monitor closely. MD Nakul (1) Diabetes Diabetes mellitus complication status: with hyperglycemia Diabetes mellitus watermelon inspector insulin use: without watermelon inspector 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
[2019-07-23] MEDS: GABAPENTIN 300 MG CAP PO SCH ×2 (14:59→20:37)
[2019-07-23] MEDS: OXYCODONE HCL IR 5 MG TAB (IMMEDIATE RELEASE) PO PRN ×2 (14:59→22:58)
[2019-07-23] MEDS: INSULIN ASPART 100 UNITS/ML 3 ML PEN SC SCH ×3 (15:12→20:36)
--- NOTE | 2019-07-23 17:16 | Anesthesiology Consultation ---
Date of Service July 23, 2019 Assessment & Plan (1) Encounter for pre-operative examination: Chart Review Chart Review: Acceptable Risk for Surgery History Surgery Operation Date: 07/24/19 13:15 Proposed Procedures p Left Video Assisted Thoracoscopy - Myles Lemus MD, FACS Height/Weight Height: 6 ft 6 in Weight: 179.5 kg Allergies Allergy/AdvReac Type Severity Reaction Status Date / Time morphine Allergy Verified 07/23/19 09:27 Medications Home Medications Medication Instructions Recorded Confirmed Last Taken Jardiance 25 mg PO DAILY 06/28/19 07/23/19 Unknown cyclobenzaprine 10 mg PO TID PRN 07/09/19 07/23/19 Unknown gabapentin 300 mg PO TID 07/09/19 07/23/19 Unknown oxycodone 10 mg PO Q6 PRN #90 tab 07/20/19 07/23/19 07/23/19 10:00 oxycodone [OxyContin] 15 mg PO Q12H 30 Days #60 tab 07/20/19 07/23/19 07/23/19 07:00 metformin 1,000 mg tablet 1,000 mg PO BIDM tab 07/21/19 07/23/19 Unknown prochlorperazine maleate 5 mg 5 mg PO Q8H PRN #30 tab 07/21/19 07/23/19 Unknown tablet docusate sodium 100 mg PO DAILY 07/23/19 07/23/19 Unknown polyethylene glycol 3350 [Miralax] 17 g PO DAILY 07/23/19 07/23/19 Unknown Active Medications Generic Name Dose Route Start Last Admin Trade Name Freq PRN Reason Stop Dose Admin Gabapentin 300 mg 07/23/19 14:00 07/23/19 14:59 Neurontin PO 08/22/19 13:59 300 mg TID LISA Administration Insulin Aspart 0 units 07/23/19 16:30 07/23/19 15:12 Novolog Flexpen SC 08/22/19 16:29 2 units ACHS LISA Administration Oxycodone HCl 10 mg 07/23/19 12:38 07/23/19 14:59 Roxicodone Immediate Rel PO 08/06/19 12:37 10 mg Q6 PRN Administration pain Past Medical History Medical History Morbid obesity with BMI of 45.0-49.9, adult (Chronic) HTN (hypertension) (Chronic) Diabetes (Chronic) Metastatic renal cell carcinoma Pleural effusion Renal cell cancer Past Family History Family History Father No problems noted. Mother Alive and well Past Surgical History Surgical History History of cholecystectomy (Chronic) History of arthroscopic knee surgery (Chronic) Hx of chest tube placement Social History Smoking Status: Never smoker Do You Dip or Chew Tobacco: No Hx Alcohol Use: No Hx Substance Use: No substance use type: does not use Physical Exam Vital Signs Last Vital Signs Temp 36.6 C 07/23/19 15:00 Resp 20 07/23/19 15:00 BP 124/78 07/23/19 15:00 Pulse Ox 93 07/23/19 15:00 Testing Laboratory Results 07/23/19 13:27 07/23/19 13:27 PT 12.6 Seconds (9.0-12.0) H 07/23/19 13:27 INR 1.2 (0.9-1.1) H 07/23/19 13:27 APTT 26.3 Seconds (21.0-31.0) 07/23/19 13:27 Blood Type A Positive 07/23/19 15:01 Antibody Screen NEGATIVE 07/23/19 15:01 07/23/19 07/23/19 16:25 14:59 POC Glucose 161 H 124 H Electrocardiogram Date: 07/09/19 Findings: + ST @ (103) Chest X-Ray Date: 07/22/19 Findings: + pleural effusion (left) chest tube present
[2019-07-23] MEDS: OXYCODONE HCL 15 MG TABCR (OXYCONTIN) PO SCH (19:20)
[2019-07-23] MEDS: INSULIN GLARGINE SOLOSTAR 100 UNITS/ML 3 ML PEN SC SCH (20:37)
--- NOTE | 2019-07-23 23:34 | Consultation Report ---
DATE OF CONSULTATION: 07/23/2019 SURGICAL CONSULTATION REASON FOR CONSULTATION: Left pleural effusion. HISTORY OF PRESENT ILLNESS: This is a 38-year-old male who is known to our service. The patient had previously been admitted to the hospital on 07/09/2019 and he was discharged on 07/20/2019. During his aforementioned admission, the patient was found to have a renal mass felt to be consistent with a renal cell carcinoma. There is concern for metastases of the patient's spine, so radiation oncology was consulted and radiation therapy was initiated for palliation of his back pain. During the patient's admission, he was also noted to have a left pleural effusion. Dr. Lemus did perform a thoracentesis on 07/10/2019 at which time he was able to move approximately 3 liters of rust-colored fluid. It should be noted that the cytology was negative for malignancy on this study. The patient did have reaccumulation of his pleural effusion, so on 07/14/2019, Dr. De La Rosa inserted a left-sided PleurX catheter, at which time, approximately 200 mL of bloody fluid was obtained again with cytology noted to be negative. As no clear diagnosis was obtained, the patient did undergo a CT guided needle aspiration of a left renal mass. The pathology from this revealed malignant cells consistent with renal cell carcinoma. Because of this, hematology/oncology was consulted. Discussion was had with the patient about initiating immunotherapy; however, this has not been started yet. The patient was discharged home on the aforementioned date with outpatient followup to be employed. The patient notes that his PleurX catheter was being drained daily for approximately 1000 mL daily and was working well; however, approximately 3 days ago, only 500 mL was able to be obtained and approximately 2 days ago they had minimal drainage. The patient was seen by his flasher adjuster in the office today which was 07/23/2019 and it was felt that as the patient had worsening respiratory symptoms and minimal drainage from his PleurX catheter, a thoracentesis was indicated. They attempted a thoracentesis in the office, but again no fluid to be able to be obtained. Because of this, the patient was admitted to the hospital. Upon admission to the hospital, the patient did undergo a CT scan of his chest which showed that the patient had a large left pleural effusion. I visited with the patient at bedside and he says that since being home, he has not had any fever, shakes, or chills. He does not have any weight loss. He has not had any falls, head injuries, visual changes, tinnitus or sore throat. No neck pain is reported. He notes that his back pain has markedly improved since initiation of radiation therapy. He denies any chest pain, but does admit to some tightness along with shortness of breath particularly with activity. He notes that he is comfortable at rest. He notes some increasing fatigue. He denies abdominal pain. He denies dysuria. Because of the findings on his CT scan, thoracic surgery was consulted. PAST MEDICAL HISTORY: Includes: 1. Diabetes. 2. Hypertension. 3. Obesity. 4. Renal cell carcinoma with mets to his spine. PAST SURGICAL HISTORY: Includes: 1. Cholecystectomy. 2. Arthroscopic knee surgery. 3. Thoracentesis and PleurX catheter placement as noted above. 4. Needle biopsy of renal mass as noted above. FAMILY HISTORY: There is no reported family history of cancer. SOCIAL HISTORY: The patient is a lifetime nonsmoker. ALLERGIES: HE HAS LISTED ALLERGIES TO MORPHINE. HOME MEDICATIONS: Include: 1. Flexeril 10 mg 3 times daily. 2. Colace 100 mg daily. 3. Neurontin 300 mg 3 times daily. 4. Jardiance 25 mg daily. 5. Metformin 1000 mg twice daily. 6. Oxycodone 10 mg every 6 hours as needed for pain. 7. OxyContin 15 mg every 12 hours. 8. MiraLax daily. 9. Phenergan as needed for nausea. REVIEW OF SYSTEMS: As described above. PHYSICAL EXAMINATION: VITAL SIGNS: The patient is afebrile with temperature of 36.6, blood pressure is 124/70, respirations are 20 and nonlabored, pulse ox is 93% on 2.5 liters of oxygen. GENERAL: He is alert. He is oriented x3. He is in no distress. HEENT: Head is atraumatic, normocephalic. Eyes: Pupils equal, round, reactive to light and accommodation. His extraocular motions are intact. Ears: Auditory acuity is grossly intact. Nose: Nasal patency appeared intact. Mouth: Has moist mucous membranes. NECK: Supple without tracheal shift or stridor. CARDIOVASCULAR: Regular rate and rhythm. LUNGS: Revealed that the patient had markedly decreased breath sounds on the left. He was not using accessory muscles to aid in respiration. At rest, he did not appear overtly dyspneic. ABDOMEN: Soft and nontender. EXTREMITIES: Revealed no cyanosis, clubbing, or edema. He had palpable pedal and radial pulses bilaterally. NEUROLOGIC: Revealed cranial nerves II-XII are grossly intact. No focal deficits are noted. DIAGNOSTIC DATA: As noted above. IMPRESSION: A 38-year-old male with renal cell carcinoma. PLAN: Due to the patient's increasing pleural effusion, Dr. Lemus is planning on performing a left video-assisted thoracoscopy with decortication tomorrow. It is also noteworthy to mention that the oncology did request additional tissue to perform further testing which will shipfitter helper in his oncologic care. Dr. Lemus plans on obtaining some biopsies tomorrow to aid with this as well. We will make the patient n.p.o. after midnight with plans for surgery tomorrow. Informed consent has been obtained.
--- NOTE | 2019-07-24 00:17 | Progress Note ---
DATE: 07/23/2019 REASON FOR NOTE: Complicated left pleural effusion in the face of metastatic renal cell carcinoma with malfunctioning PleurX catheter. HISTORY OF PRESENT ILLNESS: Kevan Almendarez is a very nice 38-year-old enormous man standing 6 feet 6 inches tall, weighing over 400 pounds. The patient came in with back pain and shortness of breath earlier this month and was hospitalized for several days here at [facility]. He was found to have a large left pleural effusion. I tapped him for 3 liters and the fluid appeared to be benign. It recurred fairly quickly and Dr. Rojelio De La Rosa from [facility] inserted a PleurX catheter. This drained very well, although he still had some opacity at the base. The patient had stopped draining from his PleurX catheter. He came in, he became more short of breath over the last couple of days and presented to his point of sale associate and Dr. De La Rosa sent him directly to the hospital. I saw him and had already discussed the possible thoracoscopy, which I think is appropriate. I had a long talk with the patient and his . We are going to proceed with a thoracoscopy and evacuation of the pleural contents and proper placement of the chest tubes. We are going to do this tomorrow afternoon.
[2019-07-24] MEDS: OXYCODONE HCL IR 5 MG TAB (IMMEDIATE RELEASE) PO PRN ×3 (06:11→21:47)
[2019-07-24] MEDS: OXYCODONE HCL 15 MG TABCR (OXYCONTIN) PO SCH ×2 (07:13→18:38)
[2019-07-24] MEDS: POLYETHYLENE (MIRALAX) 17 GM PACK PO SCH (07:19)
[2019-07-24] MEDS: DOCUSATE SODIUM 100 MG CAP PO SCH (08:18)
[2019-07-24] MEDS: GABAPENTIN 300 MG CAP PO SCH ×3 (08:19→20:55)
[2019-07-24] MEDS: INSULIN ASPART 100 UNITS/ML 3 ML PEN SC SCH ×4 (08:19→20:56)
[2019-07-24] MEDS: ONDANSETRON INJ 2 MG/ML 2 ML VIAL IV PRN (08:19)
[2019-07-24] MEDS: INSULIN GLARGINE SOLOSTAR 100 UNITS/ML 3 ML PEN SC SCH ×2 (08:19→20:57)
--- NOTE | 2019-07-24 08:56 | History & Physical Bridge Note ---
Date of Service July 24, 2019 History & Physical Bridge Note I have examined the patient, reviewed the History & Physical and in the interval since the performance of the History & Physical I have noted the following changes of clinical significance: no changes noted
[2019-07-24] MEDS ORDERED: ENOXAPARIN INJ 40 MG/0.4 ML SYR SQ SCH (09:00)
[2019-07-24] MEDS ORDERED: fentaNYL citrate 100 MCG/2 ML VIAL ONE ×2 (12:53→16:04)
[2019-07-24] MEDS ORDERED: MIDAZOLAM HCL 1 MG/ML 2ML VIAL ONE (12:53)
[2019-07-24] MEDS ORDERED: ATROPINE SULFATE 0.1 MG/ML 10ML SYR IV PRN (12:55)
[2019-07-24] MEDS ORDERED: HYDROmorphone INJ 1 MG/ML SYRINGE IV PRN (12:55)
[2019-07-24] MEDS ORDERED: ONDANSETRON INJ 2 MG/ML 2 ML VIAL IV PRN (12:55)
[2019-07-24] MEDS ORDERED: ePHEDrine sulfate 50 MG/ML AMP IV PRN (12:55)
[2019-07-24] MEDS ORDERED: BUPIVACAINE 0.5 % 5 MG/1 ML MPF 30ML VIAL ONE (13:12)
[2019-07-24] MEDS ORDERED: SODIUM CHLORIDE 0.9% PF 50 ML VIAL ONE (13:13)
--- NOTE | 2019-07-24 13:15 | Consultation Report ---
DATE OF CONSULTATION: 07/24/2019 REASON FOR CONSULTATION: The patient is scheduled for robotic video-assisted thorascopic surgery with probable pleurectomy and additional biopsy. HISTORY OF PRESENT ILLNESS: A 38-year-old white male was admitted yesterday after having been seen by Dr. De La Rosa in the Pulmonary Medicine office. The patient previously had been admitted to the hospital on 07/09/2019 and was discharged 11 days later. He at that time was discovered to have a renal mass consistent with the renal cell carcinoma with concerns for metastasis to the spine. Radiation-Oncology was consulted and palliative SBRT therapy was initiated. The patient had severe back pain. He was found to have a large left pleural effusion. Dr. Lemus performed a thoracentesis on 07/10/2019 and removed close to 3 liters of rust colored fluid. Initially cytology was negative. He rapidly reaccumulated on 07/14/[address] Jaycob De La Rosa inserted a left-sided PleurX catheter with approximately 200 mL of bloody fluid obtained with once again negative cytology. He did undergo a CT guided needle biopsy of the left frontal mass revealing malignant cells consistent with a renal cell carcinoma and Dr. Gerald Martinez was consulted. The patient has a history of type 2 diabetes mellitus. He did have an additional large left pleural effusion, innumerable pulmonary nodules and a 3.5 cm lytic lesion at the L3 vertebral body in addition to his left kidney mass. On the day of admission, he has become progressively more dyspneic and although the PleurX catheter could be flushed by Dr. De La Rosa, there was any additional drainage, so a decision was made to admit him for consideration of a robotic video-assisted thorascopic procedure with drainage and biopsy. The patient just returned from a radiation oncology this morning when I saw him in his room. He was sitting at the bedside with family members in attendance. He was on oxygen and was exhibiting no signs of respiratory compromise at rest. PHYSICAL EXAMINATION: VITAL SIGNS: Blood pressure 122/76, pulse 95 and regular, respiratory rate 18, temperature 36.9, O2 sat 92% on 2.5 liters. SKIN: Without lesion. HEENT: Atraumatic, normocephalic, PERRLA, EOMI. Conjunctivae pink. Sclerae nonicteric. Fundi poorly visualized. NECK: Neck veins are not distended at 45 degrees. No evidence of adenopathy in the supra or infraclavicular areas. LUNGS: Markedly reduced breath sounds left posterior lung field. CARDIAC: Regular rhythm. I do not appreciate a gallop. ABDOMEN: Soft, protuberant. EXTREMITIES: No significant pedal edema, clubbing or cyanosis. NEUROLOGIC: Intact. No lateralizing signs. LABORATORY DATA: Currently, white count 6300, H and H 12.3 and 36.4 with reduced MCV. PT, PTT within normal limits. ABG done on 07/09/2019 on 2 liters, pH 7.43, pCO2 37, pO2 of 76, BUN 12, creatinine 0.9. Pleural fluid has been sent and negative cultures in the past and most recent CT scan done yesterday was reviewed and it shows progressive pleural thickening and compressive atelectasis involving the left hemithorax with diffuse pulmonary nodularity, stable to slightly progressive compared to previous CT scan on 07/11/2019. Trace amount of pleural fluid at the right lung base. The PleurX catheter appears to be in good position. OVERALL ASSESSMENT: A 38-year-old white male with renal cell carcinoma involving the left kidney with a suspected metastasis at the L3 vertebral body, probable left malignant effusion with compressive atelectasis and pulmonary nodularity, all consistent with metastatic disease. The patient appears stable to proceed with thoracoscopy, evacuation of the pleural contents and additional chest tube placement with decortication and evacuation of the pleural contents and possible talc pleurodesis with biopsy with additional tissue to be obtained. We will follow postoperatively with the thoracic surgical service. Thank you very much for this consultation. ALEX
[2019-07-24] MEDS ORDERED: NEOSTIGMINE METHYLSULFATE 5 MG/5 ML SYR ONE (14:17)
[2019-07-24] MEDS ORDERED: DEXAMETHASONE SOD INJ 4 MG/ML VIAL ONE (14:17)
[2019-07-24] MEDS ORDERED: ROCURONIUM BROMIDE 10 MG/ML 5 ML VIAL ONE (14:17)
[2019-07-24] MEDS ORDERED: CEFAZOLIN 250 MG/ML 1 GM VIAL ONE (14:17)
[2019-07-24] MEDS ORDERED: LIDOCAINE HCL 2% 2 ML VIAL/AMP(20MG/ML) INFIL ONE (14:17)
[2019-07-24] MEDS ORDERED: GLYCOPYRROLATE 0.2 MG/ML VIAL ONE (14:17)
[2019-07-24] MEDS ORDERED: ONDANSETRON INJ 2 MG/ML 2 ML VIAL ONE (14:17)
[2019-07-24] MEDS ORDERED: PROPOFOL IV EMULSION 10 MG/ML 20 ML VIAL IV ONE (14:17)
[2019-07-24] MEDS ORDERED: SUCCINYLCHOLINE CHLORIDE 20 MG/ML 10 ML VIAL ONE (14:17)
[2019-07-24] MEDS ORDERED: CEFAZOLIN 3000MG 72.5 ML IV ONE (14:34)
[2019-07-24] MEDS ORDERED: BUPIVACAINE LIPOSOME 1.3% 133 MG/10 ML VIAL INFIL ONE (14:45)
--- NOTE | 2019-07-24 15:01 | Hospitalist Progress Note ---
Date of Service July 24, 2019 Assessment & Plan (1) Pleural effusion: Was sent from pulmonology office as a direct admission for worsening SOB Left PleurX catheter malfunctioning CT scan chest showed moderately progressive pleural thickening and compressive atelectasis of all major structures of the left hemithorax. 2. Mild increasing cardiomediastinal silhouette shift to the right.3. Diffuse pulmonary nodularity slightly progressive. 4. Interval small right effusion. 5. Left hemithoracic drainage catheter placed with no significant change in volume of the left hemithoracic effusion type change. Thoracic surgery on board plan for left video-assisted thoracoscopy with decortication NPO this morning for the procedure Pulmonology on board (2) Renal cell carcinoma of left kidney: (3) Metastatic cancer: Continue palliative radiation therapy as per radiation oncology Thoracic surgery plan to obtain more tissue biopsy today (4) Constipation due to pain medication: continue colace and miralax (5) Pain management: Continue OxyContin 15 mg every 12 hours Oxycodone 10 mg every 6 hours as needed Pain has been improved with Palliative radiation Continue bowel regimen of Colace and MiraLAX (6) Diabetes: A1C 7.1 Hold metformin and jardiance lantus/novolog per protocol (7) HTN (hypertension): previous dx of HTN had been on lisinopril BP has been controlled without oral antihypertensives monitor (8) DVT prophylaxis: SCD/TEDS for now Continue to hold off on chemical prophylaxis due to procedure in a.m. Disposition Will discharge once stable Subjective Pt was seen and examined Sitting in chair with no distress Pt said that he feels ok, but he becomes SOB with minimal exertion he said that his pain improves He had radiation therapy early this morning Denies any chest pain, dizziness and palpitation Physical Exam Physical Exam: General- No acute distress Head- atraumatic Eyes- PERRL, EOMI, ENT- oropharynx clear Neck- supple, no JVD Lungs- Decrease BS in the left side Heart- regular rhythm; no murmur Abdomen- normal bowel sounds, soft, nontender Extremities- no calf tenderness Neuro- alert, oriented x 3; PERRL, EOMI; no facial palsy; no dysarthria Skin- warm & dry Results & Data Vital Signs (Past 12 Hours) Vital Signs Temp Pulse Resp BP Pulse Ox 07/24/19 12:53 37.0 C 97 H 20 136/91 95 07/24/19 07:55 36.9 C 95 H 18 122/76 92 07/24/19 04:20 36.4 C L 96 H 18 133/69 94 (1) Diabetes Diabetes mellitus complication status: with hyperglycemia Diabetes mellitus intermodal truck driver insulin use: without intermodal truck driver 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
--- NOTE | 2019-07-24 16:40 | Post Operative Brief Note ---
PG Immediate Post Op with CF Date of Surgery July 24, 2019 Pre & Post Diagnosis Operation Date: 07/24/19 13:15 Pre-Op Diagnosis: Moderately progressive pleural thickening and compressive atelectasis of all major structures of the left hemithorax. Post-Op Diagnosis: Metastatic renal cell carcinoma to pleura and left lung. Procedure Operation Date: 07/24/19 13:15 Actual Procedures p Left Video Assisted Thoracoscopy with limited decortication LLL, limited pleurectomy, evacuation of pleural contents. Myles Lemus MD, FACS Surgeon Myles Lemus MD, FACS Chief Risk Officer Isabella Becerra Estimated Blood Loss 200 Findings Consistent with Post-Op Diagnosis Specimens Specimen Description: Fresh Specimen: A. left pleural contents Frozen #1 Pleural implant Fresh Specimen: B. Pleural implant. Fresh Specimen: C. Visceral pleura peel. Fresh Specimen: D. Pleural contents. Drains Chest Tube (24 fr straight and 28 fr right angle.) and PleurX Catheter
[2019-07-24] MEDS: fentaNYL citrate 100 MCG/2 ML VIAL IV PRN ×2 (17:04→17:20)
--- NOTE | 2019-07-24 17:19 | XRay Report ---
XR chest 1V portable CLINICAL HISTORY: 38 years-old Male presenting with VATS. TECHNIQUE: Portable upright AP view of the chest was obtained. COMPARISON: CT from 07/23/2019 and chest x-ray from 07/22/2018. FINDINGS: Left pleural drain positioned in the mediastinal left mid upper lung. Associated soft tissue emphysem a along the left chest wall. Cardiac silhouette markedly enlarged as on prior exam. Pulmonary vascula r prominence may be slightly increased from prior. Slightly decreased aeration of the lungs bilateral ly. Significant interval decrease in left pleural effusion. Some degree of pleural fluid is likely st ill present. Dense left mid to lower lung opacity remains. The presence of bilateral diffuse pulmonar y nodules is best appreciated on CT. Vague opacity in the right mid to lower lung. No large pneumotho rax. IMPRESSION: 1. Decreased size of the left pleural effusion status post video-assisted thorascopic surgery. 2. Left pleural drain in place. No pneumothorax. 3. Cardiomegaly and volume overload. 4. Underlying bilateral pulmonary nodules best appreciated on CT, consistent with known metastatic d isease. 5. Decreased lung aeration in comparison to prior radiograph. Electronically signed by: Angel Bullock M.D. 07/24/2019 5:18 PM
[2019-07-24] MEDS ORDERED: ACETAMINOPHEN 1000 MG/100 ML IV IV ONE (17:28)
[2019-07-24] MEDS ORDERED: ACETAMINOPHEN 1,000 MG/100 ML VIAL IV STA (17:31)
--- NOTE | 2019-07-24 17:45 | Anesthesiology Progress Note ---
Date of Service July 24, 2019 Anesthesia Post Procedure Vital Signs Vital Signs: Temp Pulse Pulse Resp BP BP Pulse Ox 07/24/19 17:40 90 18 131/79 94 07/24/19 17:30 94 H 14 142/88 H 93 07/24/19 17:20 92 H 21 146/77 H 95 07/24/19 17:10 95 H 20 151/82 H 98 07/24/19 17:00 99 H 20 147/80 H 93 07/24/19 16:52 36.1 C L 101 H 22 147/80 H 91 07/24/19 12:53 37.0 C 97 H 20 136/91 95 07/24/19 07:55 36.9 C 95 H 18 122/76 92 07/24/19 04:20 36.4 C L 96 H 18 133/69 94 07/23/19 23:26 36.8 C 95 H 18 124/72 94 07/23/19 19:31 36.6 C 96 H 20 130/78 94 Pain Intensity Back: Pain Intensity: 4 Transfer of Care Handoff Completed per policy Notes Mental Status: alert / awake / arousable and participated in evaluation Patient Amnestic to Procedure: Yes Nausea / Vomiting: adequately controlled Pain: adequately controlled Airway Patency, RR, SpO2: stable & adequate BP & HR: stable & adequate Hydration State: stable & adequate Anesthetic Complications: no major complications apparent and Pt Satisfied with anesthetic care Notes: Patient to be transferred to med/surg but on continuous pulse oximetry.
--- NOTE | 2019-07-24 18:39 | Operative Report ---
DATE OF OPERATION: 07/24/2019 PREOPERATIVE DIAGNOSES: 1. Left pleural effusion, which was complicated and persistent. 2. Metastatic renal cell carcinoma. POSTOPERATIVE DIAGNOSES: 1. Metastatic renal cell carcinoma to left chest. 2. Complicated pleural effusion. 3. Metastatic renal cell carcinoma. PROCEDURE: 1. Left thoracoscopy with limited decortication of left lower lobe. 2. Limited pleurectomy. 3. Evacuation of pleural contents. SURGEON: Myles Lemus MD. TAXI DRIVER: Isabella Becerra. ANESTHESIA: General anesthesia with single lumen intubation. INDICATION FOR PROCEDURE AND FINDINGS: Kevan Almendarez is a 38-year-old massive man standing 6 feet 6 inches tall, weighing 420 pounds. Mr. Almendarez has been found to have metastatic renal cell carcinoma with bony metastases to his vertebral bodies which was radiated recently. Diagnosis was made with a biopsy of the kidney percutaneously. We did not have enough tissue to see whether or not the patient has a BRAF mutation. The patient also had a large pleural effusion. I tapped him for 3 liters a couple weeks ago, he got tap for another 2 liters soon after that. Dr. Arcenio De La Rosa placed a PleurX catheter which worked well initially but then this stopped working at home. Patient had no fever or chills, but he was more short of breath. CT scan showed a complicated effusion. We had a long talk about this and I elected to proceed with a left thoracoscopy for 2 reasons. One is that I thought it would more definitively address this pleural effusion. #2 is we still do not know whether this renal cell carcinoma has a BRAF mutation which is important. Dr. Martinez asked me about more tissue to run genomic studies. 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 We elected to proceed with thoracoscopy. On 07/24/2019, the patient underwent an arduous thoracoscopy. He had a complicated effusion which had bloody appearance. He is so big that we had used long ports, but I finally got two 5 mm ports and then we were able to remove over 3 liters of fluid. This was loculated and some areas were clear yellow while others were a bloody effusion. We then placed a 12 mm deep port down near the midline and I was able to meticulously free up all the loculations. There were marked adhesions. There was pleural studding. We biopsied this and frozen section showed it to be a carcinoma more than likely his renal cell. There was plenty of tissue. I did a limited pleurectomy and limited decortication. He tolerated it well, was extubated in the room. I left the PleurX catheter 28-Malay right angle chest tube with a 24-Malay straight chest tube. He tolerated the procedure well. DESCRIPTION OF PROCEDURE: The patient was brought to the operating room and laid in supine position. General anesthesia induced. Endotracheal intubation was performed with single lumen tube. The patient is very large. We turned him into the right lateral decubitus position, his left chest prepped and draped in usual sterile fashion after I removed the prior PleurX catheter. This was removed by bluntly dissecting the fibrous cuff and then pulling out the entire catheter without difficulty. He was prepped and draped in usual sterile fashion. After appropriate timeout had been called and antibiotics given, a spot was selected posteriorly and a 5 mm port was placed. I got into the pleural cavity, but it was too short because of the depth of the subcutaneous tissue, so I took this out and put a long port in it. We insufflated CO2 and I felt we were in the pleural cavity. There was a large amount of bloody fluid. We drained about a liter off. It was markedly loculated. I then looked anteriorly and I placed another 5 mm port anteriorly and I was able to free up the base enough to get a 12 mm port in inferiorly. The case was extremely difficult. There was marked pleural studding, but more importantly, there was a complex thickened gelatinous pleural fluid. We had pockets where it was clear yellow and other pockets where it was bloody and gelatinous. I suctioned out all of this and removed it, going to the 12 mm port, removing most of the larger pieces through this. We suctioned out well over 3000 mL of fluid and broke down all the adhesions. He had very thickened pleura and I biopsied this as there was studding and this did come back as a carcinoma more than likely from his renal cell. Part of this more medially was really stuck and we were unable to really peel this away. We had a couple of small air leaks, but the lung itself appeared to expand nicely after we removed a peel from the left lower lobe. After irrigating up the chest with warm saline and meticulously removing as much as possible. We placed a 24-Malay chest tube and a 28-Malay right angle chest tube and a PleurX catheter. His pleura was quite a mess. He tolerated it well, was extubated in the room. 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 I attest to the content of the Intraoperative Record and any orders documented therein. Any exception s are noted below.
[2019-07-24] MEDS: SODIUM CHLORIDE 0.45 % 1,000 ML IV SCH (19:57)
[2019-07-25] MEDS: SODIUM CHLORIDE 0.45 % 1,000 ML IV SCH ×2 (03:17→10:59)
[2019-07-25] MEDS: OXYCODONE HCL IR 5 MG TAB (IMMEDIATE RELEASE) PO PRN ×4 (03:43→22:07)
[2019-07-25 06:01] LABS: Hematocrit (blood only) 33.4 % (42-52); Hemoglobin 10.9 g/dL (14.0-18.0); Mean Corpuscular Hgb Conc 32.6 g/dL (32-36); Mean Platelet Volume 8.6 fL (7.4-10.4); Platelet Count 302 K/uL (130-400); RDW Coefficient of Variation 16.5 % (11.5-14.5); RDW Standard Deviation 46.9 fL (36.4-46.3); Red Blood Count 4.28 M/uL (4.7-6.1); White Blood Count 6.87 K/uL (4.8-10.8)
[2019-07-25] MEDS: OXYCODONE HCL 15 MG TABCR (OXYCONTIN) PO SCH ×2 (06:06→19:11)
--- NOTE | 2019-07-25 07:13 | XRay Report ---
XR chest 1V portable CLINICAL HISTORY: 38 years-old Male presenting with f/u. TECHNIQUE: Portable upright AP view of the chest was obtained. COMPARISON: 07/24/2019. FINDINGS: Left pleural drain position at the paramediastinal left upper lung. Cardiac silhouette remains modera tely enlarged. Pulmonary vascular prominence. Extensive opacity in the left mid to lower lung with un derlying effusion suspected. No large pneumothorax allowing for image quality and portable technique. Lesser degree of right basilar predominant nodular opacities. IMPRESSION: 1. Overall similar appearance of the extensive left mid to basilar lung infiltrates and associated e ffusion with the left pleural drain remaining in place. 2. Underlying bilateral pulmonary nodules best appreciated on recent CT from 07/23/2019 consistent wi th known metastatic disease. 3. Cardiomegaly with volume overload and congestive change. No breana pulmonary edema at this time. Electronically signed by: Angel Bullock M.D. 07/25/2019 7:12 AM
[2019-07-25] MEDS: ACETAMINOPHEN 325 MG TAB PO PRN ×3 (07:46→19:11)
--- NOTE | 2019-07-25 07:59 | Progress Note ---
DATE: 07/25/2019 The patient was seen today. On 3 liters, he is 94% saturations. He had decreased breath sounds on the left, but it sounds actually pretty good. He has put out a significant amount of serous fluid from his chest tube as I would expect. He has had an almost a liter through his tube. His hemoglobin is 10.9. White count is 6870. He has no air leak. His x-ray looks about the same as yesterday postop. ASSESSMENT AND PLAN: Postoperative day #1, status post limited decortication and pleurectomy for widely metastatic renal cell carcinoma with pleural implants. We have plenty of tissue for diagnosis. We will get him up walking more and I suspect we will be able to get his chest tubes out in the next few days.
[2019-07-25] MEDS: GABAPENTIN 300 MG CAP PO SCH ×3 (09:11→20:54)
[2019-07-25] MEDS: DOCUSATE SODIUM 100 MG CAP PO SCH (09:11)
[2019-07-25] MEDS: INSULIN GLARGINE SOLOSTAR 100 UNITS/ML 3 ML PEN SC SCH ×2 (09:12→20:55)
[2019-07-25] MEDS: POLYETHYLENE (MIRALAX) 17 GM PACK PO SCH (09:12)
[2019-07-25] MEDS: INSULIN ASPART 100 UNITS/ML 3 ML PEN SC SCH ×4 (09:13→20:54)
--- NOTE | 2019-07-25 09:15 | Pulmonology Progress Note ---
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 He underwent the procedure yesterday with Dr. Lemus and did well. Over 3 liters of fluid was drained in addition there is a close to 1 liter in the thoraklex. A partial decortication and pleurectomy were performed with additional biopsies. Unfortunately patient as expected had significant studying of the visceral and parietal pleura with implants. He has minimal pain today and is able to breathe better and set up without any issue. He has been ambulating as well. His O2 requirements have decreased. He has minimal cough that is nonproductive. No hemoptysis. Assessment & Plan (1) Renal cell carcinoma of left kidney: (2) Multiple lung nodules on CT: (3) Metastatic cancer: (4) Pleural effusion: 38-year-old morbidly obese individual with metastatic renal cell carcinoma status post robotic video-assisted thorascopic surgery with partial pleurectomy and decortication and additional drainage of malignant effusion. Currently patient has a PleurX catheter and chest tube in place and has a satisfactory postoperative course. Patient will be mobilized and decision on removal of those catheters/chest tube as per Dr. Lemus. (5) Hypoxia: Review of Systems Review of Systems: All systems reviewed & are unremarkable except as noted in HPI & below Constitutional: no problem reported Eyes: no problem reported Ear, Nose, Mouth, Throat: no problem reported Respiratory: no problem reported Cardiovascular: no problem reported Gastrointestinal: no problem reported Genitourinary: no problem reported Musculoskeletal: no problem reported Integumentary: no problem reported Neurologic: no problem reported Psychiatric: no problem reported Endocrine: no problem reported Hematologic / Lymphatic: no problem reported Allergy / Immunological: no problem reported Physical Exam Respiratory: normal respiratory effort Auscultation: + diminished lung sounds (Better aeration left base but still with markedly diminished breath karime nds) Results & Data Vital Signs (Past 12 Hours) Vital Signs Temp Pulse Resp BP Pulse Ox 07/25/19 07:21 36.5 C 85 18 121/71 96 07/25/19 05:20 36.7 C 93 H 19 130/74 92 07/25/19 03:20 36.7 C 92 H 19 124/69 95 07/25/19 01:20 36.8 C 85 18 123/70 95 07/24/19 23:20 36.9 C 89 18 122/71 93 07/24/19 22:20 36.6 C 92 H 18 115/64 93 07/24/19 21:18 36.6 C 95 H 18 125/76 95 PG Care Time/CCT Total # of Minutes Spent Total Time Spent with Patient: Total time spent is greater than 50% in coordination of care (as documented) at patient's floor/unit and/or counseling patient:
--- NOTE | 2019-07-25 17:01 | Anesthesiology Progress Note ---
Date of Service July 25, 2019 Anesthesia Post Procedure Vital Signs Vital Signs: Temp Pulse Pulse Resp BP Pulse Ox Pulse Ox 07/25/19 15:19 36.7 C 92 H 18 125/74 96 07/25/19 11:21 36.6 C 86 20 118/74 97 07/25/19 07:40 94 07/25/19 07:21 36.5 C 85 18 121/71 96 07/25/19 05:20 36.7 C 93 H 19 130/74 92 07/25/19 03:20 36.7 C 92 H 19 124/69 95 07/25/19 01:20 36.8 C 85 18 123/70 95 07/24/19 23:20 36.9 C 89 18 122/71 93 07/24/19 22:20 36.6 C 92 H 18 115/64 93 07/24/19 21:18 36.6 C 95 H 18 125/76 95 07/24/19 20:32 36.5 C 87 18 153/72 H 97 07/24/19 19:25 36.4 C L 88 18 125/80 92 07/24/19 18:51 37.1 C 88 17 146/74 H 96 07/24/19 18:05 89 20 155/82 H 95 07/24/19 17:50 36.6 C 90 15 138/77 95 07/24/19 17:40 90 18 131/79 94 07/24/19 17:30 94 H 14 142/88 H 93 07/24/19 17:20 92 H 21 146/77 H 95 07/24/19 17:10 95 H 20 151/82 H 98 Pain Intensity Back: Pain Intensity: 8 Left Ribs: Pain Intensity: 5 Left Chest: Pain Intensity: 9 Transfer of Care Handoff Completed per policy Notes Mental Status: alert / awake / arousable and participated in evaluation Patient Amnestic to Procedure: Yes Nausea / Vomiting: adequately controlled Pain: adequately controlled Airway Patency, RR, SpO2: stable & adequate BP & HR: stable & adequate Hydration State: stable & adequate Anesthetic Complications: no major complications apparent and Pt Satisfied with anesthetic care
--- NOTE | 2019-07-25 17:38 | Hospitalist Progress Note ---
Date of Service July 25, 2019 Assessment & Plan (1) Pleural effusion: Was sent from pulmonology office as a direct admission for worsening SOB Left PleurX catheter malfunctioning CT scan chest showed moderately progressive pleural thickening and compressive atelectasis of all major structures of the left hemithorax. 2. Mild increasing cardiomediastinal silhouette shift to the right.3. Diffuse pulmonary nodularity slightly progressive. 4. Interval small right effusion. 5. Left hemithoracic drainage catheter placed with no significant change in volume of the left hemithoracic effusion type change. S/P day #1 left video-assisted thoracoscopy with decortication performed by Dr. montilla CXR done today showed similar appearance of the extensive left mid to basilar lung infiltrates and associated effusion with the left pleural drain remaining in place. 3 liters of fluid was drained in addition there another 1 liter in the thoraklex. Pulmonology and Thoracic surgery on board (2) Renal cell carcinoma of left kidney: (3) Metastatic cancer: Continue palliative radiation therapy as per radiation oncology Thoracic surgery plan to obtain more tissue biopsy today (4) Constipation due to pain medication: continue colace and miralax (5) Pain management: Continue OxyContin 15 mg every 12 hours Oxycodone 10 mg every 6 hours as needed Pain has been improved with Palliative radiation Continue bowel regimen of Colace and MiraLAX (6) Diabetes: A1C 7.1 Hold metformin and jardiance lantus/novolog per protocol (7) HTN (hypertension): previous dx of HTN had been on lisinopril BP has been controlled without oral antihypertensives monitor (8) DVT prophylaxis: SCD/TEDS for now Continue to hold off on chemical prophylaxis due to procedure in a.m. Disposition Will discharge once stable Subjective Pt was seen and examined Lying in bed with no distress Pt said that his breathing improves Denies any chest pain, palpitation and fever Physical Exam Physical Exam: General- No acute distress Head- atraumatic Eyes- PERRL, EOMI, ENT- oropharynx clear Neck- supple, no JVD Lungs- Decrease BS in the left side (much air compare to yesterday) +chest tube Heart- regular rhythm; no murmur Abdomen- normal bowel sounds, soft, nontender Extremities- no calf tenderness Neuro- alert, oriented x 3; PERRL, EOMI; no facial palsy; no dysarthria Skin- warm & dry Results & Data Vital Signs (Past 12 Hours) Vital Signs Temp Pulse Resp BP Pulse Ox Pulse Ox 07/25/19 15:19 36.7 C 92 H 18 125/74 96 07/25/19 11:21 36.6 C 86 20 118/74 97 07/25/19 07:40 94 07/25/19 07:21 36.5 C 85 18 121/71 96 (1) Diabetes Diabetes mellitus complication status: with hyperglycemia 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
[2019-07-25] MEDS: POLYETHYLENE (MIRALAX) 17 GM PACK PO PRN (21:01)
[2019-07-26] MEDS: ACETAMINOPHEN 325 MG TAB PO PRN ×3 (03:21→17:47)
[2019-07-26] MEDS: OXYCODONE HCL IR 5 MG TAB (IMMEDIATE RELEASE) PO PRN ×3 (05:00→21:52)
[2019-07-26] MEDS: OXYCODONE HCL 15 MG TABCR (OXYCONTIN) PO SCH ×2 (06:13→18:51)
[2019-07-26 06:21] LABS: Hematocrit (blood only) 34.5 % (42-52); Hemoglobin 11.2 g/dL (14.0-18.0); Mean Corpuscular Hgb Conc 32.5 g/dL (32-36); Mean Corpuscular Volume 78.2 fL (80-100); Mean Platelet Volume 8.6 fL (7.4-10.4); Platelet Count 295 K/uL (130-400); RDW Coefficient of Variation 16.4 % (11.5-14.5); Red Blood Count 4.41 M/uL (4.7-6.1)
[2019-07-26 06:54] LABS: Calcium 8.3 mg/dl (8.5-10.1); Creatinine Clr Calc Pharmacy 203.4 ml/min; Est GFR (African American) 126.3
--- NOTE | 2019-07-26 08:28 | XRay Report ---
XR chest 1V portable HISTORY: Postop. COMPARISON: Chest 07/25/2019. FINDINGS: Left-sided chest tube is unchanged in position. No definite pneumothorax. Small left pleura l effusion and left mid to lower lung zone airspace opacities persist. Improved aeration within the r ight lung base which demonstrates a trace right pleural effusion. The heart remains enlarged. Mild co ngestive change persists. Scattered bilateral pulmonary nodules are again noted. Small amount of subc utaneous emphysema within the left neck. IMPRESSION: 1. Improved aeration within the right lung base. 2. Otherwise, additional findings are not significantly changed. 3. The left-sided chest tube is unchanged in position. No pneumothorax identified. Electronically signed by: Marco Antonio Alonso M.D. 07/26/2019 8:26 AM
[2019-07-26] MEDS: INSULIN ASPART 100 UNITS/ML 3 ML PEN SC SCH ×4 (08:56→21:58)
[2019-07-26] MEDS: INSULIN GLARGINE SOLOSTAR 100 UNITS/ML 3 ML PEN SC SCH ×2 (08:56→21:56)
[2019-07-26] MEDS: GABAPENTIN 300 MG CAP PO SCH ×3 (08:57→21:54)
[2019-07-26] MEDS: POLYETHYLENE (MIRALAX) 17 GM PACK PO SCH (09:05)
[2019-07-26] MEDS: DOCUSATE SODIUM 100 MG CAP PO SCH (09:05)
--- NOTE | 2019-07-26 11:10 | Pulmonology Progress Note ---
Date of Service Chart reviewed and patient examined July 26, 2019 Assessment & Plan (1) Renal cell carcinoma of left kidney: (2) Hypoxia: Patient's pain is well controlled with OxyContin and the chest tubes her will be removed by Dr. Lemus when the fluid he decreases prior to discharge. Patient schedule an Saturday to see medical oncology Dr Martinez (3) Multiple lung nodules on CT: (4) Morbid obesity with BMI of 45.0-49.9, adult: (5) Dyspnea: Dyspnea type: dyspnea on exertion Qualified Code(s): R06.09 - Other forms of dyspnea (6) Pleural effusion: (7) Metastatic cancer: Subjective 38-year-old white male with metastatic renal cell carcinoma status post robotic thorascopic surgery with partial pleurectomy and decortication and drainage with additional biopsy. Patient remains with a PleurX catheter and chest tube with much less drainage over the past 24 hours. He remains with left-sided chest discomfort that is manageable with analgesia. His saturations have improved he requires 1 liter of oxygen via nasal cannula to maintain sats greater than 90 percent. He denies hemoptysis or sputum production. Review of Systems Constitutional: no problem reported Eyes: no problem reported Ear, Nose, Mouth, Throat: no problem reported Respiratory: no problem reported Cardiovascular: no problem reported Gastrointestinal: no problem reported Genitourinary: no problem reported Musculoskeletal: no problem reported Integumentary: no problem reported Neurologic: no problem reported Psychiatric: no problem reported Endocrine: no problem reported Hematologic / Lymphatic: no problem reported Allergy / Immunological: no problem reported Physical Exam Constitutional: well developed and well nourished; no acute distress Eyes: PERRL, conjunctivae normal, anicteric sclerae ENMT: external ear and nose normal, oropharynx normal Neck: trachea midline, no thyromegaly Respiratory: + dullness to percussion Auscultation: + diminished lung sounds (Decreased breath sounds left base) Cardiovascular: RRR, no murmur, no edema Palpation: normal PMI; no thrill Gastrointestinal (Abdomen): normal bowel sounds, soft, nontender, no hepatosplenomegaly Musculoskeletal: no cyanosis or clubbing, extremities motor strength 5/5 Gait: normal gait Skin: no rashes, warm and dry Neurologic: PERRL, EOMI, accommodation nl, no face palsy, no dysarthria Psychiatric: A+Ox3, euthymic affect Lymphatic: no cervical or axillary lymphadenopathy Results & Data Vital Signs (Past 12 Hours) Vital Signs Temp Pulse Resp BP Pulse Ox Pulse Ox 07/26/19 09:18 92 07/26/19 07:40 96 07/26/19 07:39 36.9 C 96 H 21 127/79 97 07/26/19 03:32 94 07/25/19 23:11 37.1 C 95 H 18 131/77 96 PG Care Time/CCT Total # of Minutes Spent Total Time Spent with Patient: Total time spent is greater than 50% in coordination of care (as documented) at patient's floor/unit and/or counseling patient:
--- NOTE | 2019-07-26 12:11 | Progress Note ---
DATE: 07/26/2019 Kevan was seen today. He looks better to me. He has been ambulating in the hallway. We are working on weaning his oxygen. I had a long talk to the patient and his today. His x-ray looks about the same. 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 This is metastatic disease. It is difficult for me to say how much he has put up for his chest tube because he spilled it. We changed his PleurX today. He does have decreased breath sounds on that base. I think he looks better. I like to get his chest tube out. We will leave his PleurX at this time being. Otherwise, he looks quite good to me.
--- NOTE | 2019-07-26 15:13 | Hospitalist Progress Note ---
Date of Service July 26, 2019 Assessment & Plan (1) Pleural effusion: Was sent from pulmonology office as a direct admission for worsening SOB Left PleurX catheter malfunctioning CT scan chest showed moderately progressive pleural thickening and compressive atelectasis of all major structures of the left hemithorax. 2. Mild increasing cardiomediastinal silhouette shift to the right.3. Diffuse pulmonary nodularity slightly progressive. 4. Interval small right effusion. 5. Left hemithoracic drainage catheter placed with no significant change in volume of the left hemithoracic effusion type change. S/P day #2 left video-assisted thoracoscopy with decortication performed by Dr. montilla, where 3 liters of fluid was drained in addition there another 1 liter in the thoraklex. CXR done today showed improved aeration within the right lung base. Pulmonology and Thoracic surgery on board Thoracic surgeon plan to get the chest tube out (2) Renal cell carcinoma of left kidney: (3) Metastatic cancer: Continue palliative radiation therapy as per radiation oncology More tissue collected during the left video-assisted thoracoscopy with decortication by Dr. montilla- Pathology pending (4) Constipation due to pain medication: continue colace and miralax (5) Pain management: Continue OxyContin 15 mg every 12 hours Oxycodone 10 mg every 6 hours as needed Pain has been improved with Palliative radiation Continue bowel regimen of Colace and MiraLAX (6) Diabetes: A1C 7.1 Hold metformin and jardiance lantus/novolog per protocol (7) HTN (hypertension): previous dx of HTN had been on lisinopril BP has been controlled without oral antihypertensives monitor (8) DVT prophylaxis: SCD/TEDS for now Continue to hold off on chemical prophylaxis due to procedure in a.m. Disposition Will discharge once stable by thoracic surgeon Subjective Pt was seen and examined Lying in bed with no distress with at bedside His breathing improves and has been trying to wean off oxygen Denies any chest pain, palpitation and SOB Physical Exam Physical Exam: General- No acute distress Head- atraumatic Eyes- PERRL, EOMI, ENT- oropharynx clear Neck- supple, no JVD Lungs- Decrease BS in the left side, +chest tube Heart- regular rhythm; no murmur Abdomen- normal bowel sounds, soft, nontender Extremities- no calf tenderness Neuro- alert, oriented x 3; PERRL, EOMI; no facial palsy; no dysarthria Skin- warm & dry Results & Data Vital Signs (Past 12 Hours) Vital Signs Temp Pulse Resp BP Pulse Ox Pulse Ox 07/26/19 09:18 92 07/26/19 07:40 96 07/26/19 07:39 36.9 C 96 H 21 127/79 97 07/26/19 03:32 94 (1) Diabetes Diabetes mellitus complication status: with hyperglycemia Diabetes mellitus nursing home insulin use: without nursing home 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
[2019-07-26] MEDS: POLYETHYLENE (MIRALAX) 17 GM PACK PO PRN (21:53)
[2019-07-27] MEDS: OXYCODONE HCL IR 5 MG TAB (IMMEDIATE RELEASE) PO PRN ×4 (04:20→23:25)
[2019-07-27] MEDS: OXYCODONE HCL 15 MG TABCR (OXYCONTIN) PO SCH ×2 (06:03→19:43)
[2019-07-27] MEDS: ACETAMINOPHEN 325 MG TAB PO PRN ×2 (07:30→15:41)
--- NOTE | 2019-07-27 07:42 | XRay Report ---
XR chest 1V portable CLINICAL HISTORY: 38 years-old Male presenting with VATS. TECHNIQUE: Portable upright AP view of the chest was obtained. COMPARISON: 07/26/2019. FINDINGS: Cardiac silhouette enlarged. Pulmonary vascular prominence. Interlobular septal thickening may be pre sent. Persistent dense opacity in the left mid to lower lung with suspect underlying left effusion. T he left pleural drain is not well visualized though grossly terminates in the paramediastinal left up per lung. An additional basilar left pleural drain may be in place. IMPRESSION: 1. Limited image quality due to body habitus and portable technique limiting diagnostic sensitivity the exam. Allowing for this, no significant change from prior with persistent left effusion and exten sive left mid to lower lung infiltrate/atelectasis. Electronically signed by: Angel Bullock M.D. 07/27/2019 7:41 AM
[2019-07-27] MEDS: GABAPENTIN 300 MG CAP PO SCH ×3 (08:41→20:38)
[2019-07-27] MEDS: INSULIN ASPART 100 UNITS/ML 3 ML PEN SC SCH ×4 (08:43→20:38)
[2019-07-27] MEDS: INSULIN GLARGINE SOLOSTAR 100 UNITS/ML 3 ML PEN SC SCH ×2 (08:44→20:36)
[2019-07-27] MEDS: POLYETHYLENE (MIRALAX) 17 GM PACK PO SCH (08:49)
[2019-07-27] MEDS: DOCUSATE SODIUM 100 MG CAP PO SCH (08:49)
--- NOTE | 2019-07-27 09:41 | Progress Note ---
DATE: 07/27/2019 Kevan was seen today. He looks fine. He is walking in the hallway. He is on 1 liter with 93% sat. His chest tube had put out a bit too much. His basilar chest tube put out over 200 mL in the last 24 hours, although the upper chest tube has put out very little. We will start removing this chest tube starting tomorrow. He also has a PleurX, which was not really draining. I would leave that in for the time being.
--- NOTE | 2019-07-27 11:13 | Progress Note ---
Date of Service July 27, 2019 Assessment & Plan (1) Pleural effusion: Impression: 38-year-old male with history of metastatic renal cell carcinoma and malignant left-sided pleural effusion. He failed outpatient Pleurx catheter placement is now status post decortication with chest tubes. Recommendation: 1. Malignant pleural effusion: Continue management of chest tubes per thoracic surgery. Hopefully outpatient management of the Pleurx will be successful in alleviating/mitigating recurrence of the pleural fluid and the patient's shortness of breath. 2. Hypoxemic respiratory failure: Resolving with resolution of pleural fluid. Continue to wean oxygen as tolerated. 3. Morbid obesity: Weight loss recommended 4. Metastatic renal cell carcinoma: Outpatient follow-up with medical oncology. He is receiving palliative radiation therapy to the back/spine. Outpatient urology follow-up also recommended. We will continue to follow. Feel free to contact us with questions or concerns. (2) Multiple lung nodules on CT: Subjective Patient seen and examined. Discussed with Dr. Lemus. EMR reviewed. Patient reports that his breathing continues to improve with drainage of the pleural space. Chest tubes remain in place. His pain is adequately controlled. He feels less short of breath than previous. He does not have any fevers chills or sweats overnight. His appetite is returning and he is ambulating. Review of Systems Review of Systems: Unchanged from prior Physical Exam Physical Exam: Exam limited due to morbid obesity Constitutional: WD/WN, vitals as above Neck: trachea midline, no thyromegaly Respiratory: Breath sounds diminished on the left. Chest tubes in place. Cardiovascular: RRR, no murmur, no edema Results & Data Vital Signs (Past 12 Hours) Vital Signs Temp Pulse Resp BP Pulse Ox Pulse Ox 07/27/19 07:21 36.8 C 105 H 18 145/80 H 91 07/27/19 07:00 91 Laboratory Results 07/26/19 05:52 07/26/19 05:52 Diagnostic Findings Chest x-ray independently reviewed. XR chest 1V portable CLINICAL HISTORY: 38 years-old Male presenting with VATS. TECHNIQUE: Portable upright AP view of the chest was obtained. COMPARISON: 07/26/2019. FINDINGS: Cardiac silhouette enlarged. Pulmonary vascular prominence. Interlobular septal thickening may be present. Persistent dense opacity in the left mid to lower lung with suspect underlying left effusion. The left pleural drain is not well visualized though grossly terminates in the paramediastinal left upper lung. An additional basilar left pleural drain may be in place. IMPRESSION: 1. Limited image quality due to body habitus and portable technique limiting diagnostic sensitivity the exam. Allowing for this, no significant change from prior with persistent left effusion and extensive left mid to lower lung infiltrate/atelectasis. PG Care Time/CCT Total # of Minutes Spent Total Time Spent with Patient: Total time spent is greater than 50% in coordination of care (as documented) at patient's floor/unit and/or counseling patient:
--- NOTE | 2019-07-27 19:13 | Hospitalist Progress Note ---
Date of Service July 27, 2019 Assessment & Plan (1) Pleural effusion: Was sent from pulmonology office as a direct admission for worsening SOB Left PleurX catheter malfunctioning CT scan chest showed moderately progressive pleural thickening and compressive atelectasis of all major structures of the left hemithorax. 2. Mild increasing cardiomediastinal silhouette shift to the right.3. Diffuse pulmonary nodularity slightly progressive. 4. Interval small right effusion. 5. Left hemithoracic drainage catheter placed with no significant change in volume of the left hemithoracic effusion type change. S/P day #3 left video-assisted thoracoscopy with decortication performed by Dr. montilla, where 3 liters of fluid was drained in addition there another 1 liter in the thoraklex. CXR done today showed no significant change from prior with persistent left effusion and extensive left mid to lower lung infiltrate/atelectasis. Pulmonology and Thoracic surgery on board case discussed with Thoracic surgeon Dr. Montilla plan to get the chest tube out tomorrow (2) Renal cell carcinoma of left kidney: (3) Metastatic cancer: Continue palliative radiation therapy as per radiation oncology More tissue collected during the left video-assisted thoracoscopy with decortication by Dr. montilla- Pathology pending (4) Constipation due to pain medication: continue colace and miralax (5) Pain management: Continue OxyContin 15 mg every 12 hours Oxycodone 10 mg every 6 hours as needed Pain has been improved with Palliative radiation Continue bowel regimen of Colace and MiraLAX (6) Diabetes: A1C 7.1 Hold metformin and jardiance lantus/novolog per protocol (7) HTN (hypertension): previous dx of HTN had been on lisinopril BP has been controlled without oral antihypertensives monitor (8) DVT prophylaxis: SCD/TEDS for now Continue to hold off on chemical prophylaxis due to procedure in a.m. Disposition Will discharge once stable by thoracic surgeon Subjective Pt was seen and examined Sitting in chair with no distress Pt said that his breathing is much better He is saturated well on RA He has been moving in the hallway with no distress Physical Exam Physical Exam: General- No acute distress Head- atraumatic Eyes- PERRL, EOMI, ENT- oropharynx clear Neck- supple, no JVD Lungs- Decrease BS in the left side, +chest tube Heart- regular rhythm; no murmur Abdomen- normal bowel sounds, soft, nontender Extremities- no calf tenderness Neuro- alert, oriented x 3; PERRL, EOMI; no facial palsy; no dysarthria Skin- warm & dry Results & Data Vital Signs (Past 12 Hours) Vital Signs Temp Pulse Resp BP Pulse Ox 07/27/19 15:07 36.9 C 98 H 17 138/85 92 07/27/19 07:21 36.8 C 105 H 18 145/80 H 91 (1) Diabetes Diabetes mellitus complication status: with hyperglycemia Diabetes mellitus senior living insulin use: without tank terminal gauger 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
[2019-07-28] MEDS: OXYCODONE HCL 15 MG TABCR (OXYCONTIN) PO SCH ×2 (06:39→18:55)
[2019-07-28] MEDS ORDERED: ALTEPLASE, RECOMBINANT 1 MG/ML 2ML VIAL IPL ONE (07:30)
--- NOTE | 2019-07-28 08:18 | Anesthesiology Progress Note ---
Date of Service July 28, 2019 Anesthesia Post Procedure Vital Signs Vital Signs: Temp Pulse Pulse Resp BP Pulse Ox 07/28/19 07:06 36.8 C 93 H 16 131/75 93 07/27/19 23:08 36.8 C 101 H 16 136/75 94 07/27/19 15:07 36.9 C 98 H 17 138/85 92 Pain Intensity Back: Pain Intensity: 6 Left Ribs: Pain Intensity: 5 Left Chest: Pain Intensity: 7 Notes Mental Status: alert / awake / arousable Patient Amnestic to Procedure: Yes Nausea / Vomiting: adequately controlled Pain: adequately controlled Airway Patency, RR, SpO2: stable & adequate BP & HR: stable & adequate Hydration State: stable & adequate Anesthetic Complications: no major complications apparent and Pt Satisfied with anesthetic care
[2019-07-28] MEDS: INSULIN ASPART 100 UNITS/ML 3 ML PEN SC SCH ×4 (08:32→20:45)
[2019-07-28] MEDS: GABAPENTIN 300 MG CAP PO SCH ×3 (08:32→20:48)
[2019-07-28] MEDS: INSULIN GLARGINE SOLOSTAR 100 UNITS/ML 3 ML PEN SC SCH ×2 (08:33→20:44)
[2019-07-28] MEDS: OXYCODONE HCL IR 5 MG TAB (IMMEDIATE RELEASE) PO PRN ×3 (08:36→20:53)
[2019-07-28] MEDS: DOCUSATE SODIUM 100 MG CAP PO SCH (08:37)
[2019-07-28] MEDS: POLYETHYLENE (MIRALAX) 17 GM PACK PO SCH (08:37)
--- NOTE | 2019-07-28 11:53 | Progress Note ---
DATE: 07/28/2019 The patient was seen today on postop day 4. We removed his upper most chest tube. We also put a small amount of TPA in his PleurX to clear fibrin. He is not draining very much from that, but still drained about less than 200 mL from his basilar tube. We left that in place. It is serous in appearance and there is no air leak. His chest x-ray has not really changed much. He is on 1 liter 93% sat, but walked several laps yesterday. My hope is we can get him off the oxygen all together. Depending on how much he drains, we may remove the spinal chest tube and let him go home. I am not sure if we are going to leave the PleurX in and we need to see the response to the TPA. It should be noted that was only 2 mg in about 4 mL just enough to clear the tube. MTDD
[2019-07-28] MEDS: ONDANSETRON INJ 2 MG/ML 2 ML VIAL IV PRN (13:01)
--- NOTE | 2019-07-28 17:48 | Hospitalist Progress Note ---
Date of Service July 28, 2019 Assessment & Plan (1) Pleural effusion: Was sent from pulmonology office as a direct admission for worsening SOB Left PleurX catheter malfunctioning CT scan chest showed moderately progressive pleural thickening and compressive atelectasis of all major structures of the left hemithorax. 2. Mild increasing cardiomediastinal silhouette shift to the right.3. Diffuse pulmonary nodularity slightly progressive. 4. Interval small right effusion. 5. Left hemithoracic drainage catheter placed with no significant change in volume of the left hemithoracic effusion type change. S/P day #4 left video-assisted thoracoscopy with decortication performed by Dr. montilla, where 3 liters of fluid was drained in addition there another 1 liter in the thoraklex. CXR done today showed no significant change from prior with persistent left effusion and extensive left mid to lower lung infiltrate/atelectasis. Pulmonology and Thoracic surgery on board Thoracic surgeon Dr. Montilla removed on of the chest tube today Plan to wean off oxygen, continue to require 1L NC (2) Renal cell carcinoma of left kidney: (3) Metastatic cancer: Continue palliative radiation therapy as per radiation oncology More tissue collected during the left video-assisted thoracoscopy with decortication by Dr. montilla Pathology report showed: PLEURAL IMPLANT, BIOPSY: METASTATIC CARCINOMA CONSISTENT WITH CLEAR CELL RENAL CELL CARCINOMA (4) Constipation due to pain medication: continue colace and miralax (5) Pain management: Continue OxyContin 15 mg every 12 hours Oxycodone 10 mg every 6 hours as needed Pain has been improved with Palliative radiation Continue bowel regimen of Colace and MiraLAX (6) Diabetes: A1C 7.1 Hold metformin and jardiance lantus/novolog per protocol (7) HTN (hypertension): previous dx of HTN had been on lisinopril BP has been controlled without oral antihypertensives monitor Back pain Will get a Lumbar spine xray to r/o any compression fracture Continue pain control (8) DVT prophylaxis: SCD/TEDS for now Ambulates Will start on lovenox for DVT px (Monitor for bleeding) Disposition Will discharge once stable by thoracic surgeon Subjective Pt was seen and examined Sitting in chair with no distress Getting ready to get radiation treatment Denies any chest pain, palpitation, dizziness and SOB Physical Exam Physical Exam: General- No acute distress Head- atraumatic Eyes- PERRL, EOMI, ENT- oropharynx clear Neck- supple, no JVD Lungs- Decrease BS in the left side, +chest tube Heart- regular rhythm; no murmur Abdomen- normal bowel sounds, soft, nontender Extremities- no calf tenderness Neuro- alert, oriented x 3; PERRL, EOMI; no facial palsy; no dysarthria Skin- warm & dry Results & Data Vital Signs (Past 12 Hours) Vital Signs Temp Pulse Pulse Resp BP BP Pulse Ox 07/28/19 15:02 36.3 C L 99 H 18 112/78 94 07/28/19 13:56 36.9 C 100 H 24 113/74 92 07/28/19 08:48 07/28/19 07:06 36.8 C 93 H 16 131/75 93 Pulse Ox 07/28/19 15:02 07/28/19 13:56 07/28/19 08:48 93 07/28/19 07:06 (1) Diabetes Diabetes mellitus complication status: with hyperglycemia Diabetes mellitus terminal computer operator insulin use: without terminal computer operator 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
[2019-07-28] MEDS: ACETAMINOPHEN 325 MG TAB PO PRN (18:08)
--- NOTE | 2019-07-28 19:35 | XRay Report ---
XR lumbar spine 2-3V HISTORY: 38 years-old Male back pain acute low back pain without reported trauma COMPARISON: CT abdomen and pelvis 07/11/2019 TECHNIQUE: 3 views of the lumbar spine FINDINGS: 5 nonrib-bearing lumbar type vertebral segments are present. Destructive L3 lytic lesion with destruc tion centered about the left inferior endplate is redemonstrated. Moderate L5-S1 disc space narrowing . Multilevel spondylitic spurring with facet arthrosis. No acute fracture or subluxation. Cholecystec rylee. IMPRESSION: 1. No acute fracture or subluxation. 2. Destructive lytic lesion at L3 suggestive of metastasis is redemonstrated. The above report was generated using voice recognition software. It may contain grammatical, syntax o r spelling errors. Electronically signed by: Calin Crump M.D. 07/28/2019 7:34 PM
[2019-07-28] MEDS: ENOXAPARIN INJ 40 MG/0.4 ML SYR SQ SCH (20:52)
[2019-07-29] MEDS: OXYCODONE HCL IR 5 MG TAB (IMMEDIATE RELEASE) PO PRN ×4 (04:23→23:15)
[2019-07-29] MEDS: OXYCODONE HCL 15 MG TABCR (OXYCONTIN) PO SCH ×2 (06:16→19:22)
--- NOTE | 2019-07-29 07:23 | Pulmonology Progress Note ---
Date of Service July 29, 2019 Assessment & Plan (1) Pleural effusion: Impression: 38-year-old male with history of metastatic renal cell carcinoma and malignant left-sided pleural effusion. He failed outpatient Pleurx catheter placement is now status post decortication with chest tubes. Recommendation: 1. Malignant pleural effusion: Continue management of chest tubes per thoracic surgery. Hopefully outpatient management of the Pleurx will be successful in alleviating/mitigating recurrence of the pleural fluid and the patient's shortness of breath. 2. Hypoxemic respiratory failure: Resolving with resolution of pleural fluid. Continue to wean oxygen as tolerated. 3. Morbid obesity: Weight loss recommended 4. Metastatic renal cell carcinoma: Outpatient follow-up with medical oncology. He is receiving palliative radiation therapy to the back/spine. Outpatient urology follow-up also recommended. We will follow peripherally. Available to see if needed. Feel free to contact us with questions or concerns. (2) Multiple lung nodules on CT: Supervising Physician Co-Signing Physician Notes Pt was seen and examined. Agreed with Nelli MAYA exam, assessment and plan. 38-year-old male who has significant past medical history of T2DM, HTN, morbid obesity and new diagnosis of metastatic renal cell carcinoma to lung and lumbar spine , was recently discharged at [facility] on 07/20/19 presents to [facility] as a direct admission from pulmonology office for worsening SOB. he said that his Pleurx catheter was working well until 2 days ago when he noticed significant decrease in output. CT chest done showed moderately progressive pleural thickening and compressive atelectasis of all major structures of the left hemithorax. Left hemithoracic drainage catheter placed with no significant change in volume of the left hemithoracic effusion type change. Vascular surgery consulted. Case discussed with thoracic surgery dr. Lemus who plan for left video-assisted thoracoscopy with decortication tomorrow. Will make NPO after midnight. Pulmonology consult. Continue monitor closely. MD Nakul Subjective Patient is doing well clinically. He completed radiation therapy yesterday. His chest tube continues to drain. The drain the Pleurx today with only 50 mL's removed. Shortness of breath is much better. No fevers chills or night sweats. He is ambulating and tolerating a regular diet. Review of Systems Review of Systems: Unchanged from prior Physical Exam Constitutional: WD/WN, vitals as above Neck: trachea midline, no thyromegaly Respiratory: normal respiratory effort, lungs clear to auscultation Chest tube sites clean dry and intact Cardiovascular: RRR, no murmur, no edema Gastrointestinal (Abdomen): normal bowel sounds, soft, nontender, no hepatosplenomegaly Results & Data Vital Signs (Past 12 Hours) Vital Signs Temp Pulse Resp BP Pulse Ox 07/28/19 22:58 36.9 C 81 16 127/78 94 Laboratory Results 07/26/19 05:52 07/26/19 05:52 PG Care Time/CCT Total # of Minutes Spent Total Time Spent with Patient: Total time spent is greater than 50% in coordination of care (as documented) at patient's floor/unit and/or counseling patient:
--- NOTE | 2019-07-29 08:10 | XRay Report ---
XR chest 1V portable CLINICAL HISTORY: effusion COMPARISON STUDY: 07/27/2019 FINDINGS: The heart is enlarged. A left-sided chest tube is faintly visualized. There is left pleural thickening/fluid present. There are diffuse reticulonodular opacities. There is persistent left mid and lower lung zone parenchymal consolidation IMPRESSION: 1. Persistent bilateral parenchymal nodularity, possibly secondary to the patient's known metastatic disease 2. Persistent cardiomegaly 3. Persistent left mid and lower lung zone consolidation 4. Left-sided pleural thickening/fluid. A left pleural drain is faintly visualized. Electronically signed by: Nabil Fox M.D. 07/29/2019 8:08 AM
[2019-07-29] MEDS: GABAPENTIN 300 MG CAP PO SCH ×2 (09:15→13:25)
[2019-07-29] MEDS: DOCUSATE SODIUM 100 MG CAP PO SCH (09:15)
[2019-07-29] MEDS: POLYETHYLENE (MIRALAX) 17 GM PACK PO SCH (09:17)
[2019-07-29] MEDS: INSULIN ASPART 100 UNITS/ML 3 ML PEN SC SCH ×4 (09:32→21:30)
[2019-07-29] MEDS: INSULIN GLARGINE SOLOSTAR 100 UNITS/ML 3 ML PEN SC SCH ×2 (09:36→21:28)
[2019-07-29] MEDS: CYCLOBENZAPRINE HCL 10 MG TAB PO PRN (12:11)
[2019-07-29] MEDS: ONDANSETRON INJ 2 MG/ML 2 ML VIAL IV PRN (13:49)
[2019-07-29] MEDS: CELECOXIB 100 MG CAP PO SCH (16:38)
[2019-07-29] MEDS: GABAPENTIN 600 MG TAB PO SCH (21:35)
[2019-07-29] MEDS: ENOXAPARIN INJ 40 MG/0.4 ML SYR SQ SCH (21:35)
--- NOTE | 2019-07-29 22:10 | Progress Note ---
DATE: 07/29/2019 Kevan was seen today with his . He looks good. He has serous drainage and he did respond fairly well to the small amount of TPA in the tube. The PleurX catheter drained much better, but he also put out 400 mL of Cliff-Aid appearing fluid from his chest. I think his lung sounds better, although his chest is not really look much different. The patient is off of the oxygen when he is ambulating; however, when he lays down, he feels short of breath. He is a massive man. At this point, I had a long talk with the patient and his . It is important to insure the PleurX is working, and I believe that we may go ahead and remove his chest tube in the next 24-48 hours. ALEX
--- NOTE | 2019-07-29 22:44 | Hospitalist Progress Note ---
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 PleurX was not draining well. Pulmonary Medicine and Thoracic Surgery consulted. VATS performed and 2 chest tubes placed. Received TPA via PleurX. Chest tube management per Thoracic Surgery. 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 Receiving radiation therapy to metastatic lesion L3. Other management per Medical Oncology. Left-sided back pain (Acute) Experiencing left sciatica in L5 distribution. Recent CT lumbar spine demonstrated L3 met, multi-level disc disease, osteophytes, spinal stenosis. Plain films 07/28 did not show any changes. Most likely that sciatica secondary to non-malignant aspects of lumbar disease, probably L5 radicular disease from foraminal narrowing. Add celecoxib to analgesics. May need further evaluation / consultation if symptoms do not improve. Pain management (Chronic) Metastatic lesion L3. Also experiencing sciatica. Continue oxycodone SR, oxycodone IR. Increase gabapentin to 600 mg TID. Adding celecoxib. Diabetes mellitus type 2 (Chronic) Usually managed with metformin and empaglifozin. Oral agents being held. Receiving Lantus / NovoLog per protoc. FBS today = 149. Morbid obesity with BMI of 45.0-49.9, adult (Chronic) AHA diet. VTE prophylaxis Receiving SQ enoxaparin. Ambulate. Disposition Anticipated discharge to home. Internal Medicine follow-up with Dr. Black. Pulmonary Medicine follow-up with [facility] [place]. Medical Oncology follow-up with Dr. Martinez. Subjective Recheck for multiple problems. Patient seen in their room around 1600. Family visiting. Just completed radiation therapy. Last session will be tomorrow. Experiencing low back pain with left sciatica. Having discomfort with ambulation. No lower extremity weakness; no bowel or bladder dysfunction. Upper chest tube has been removed. Still has lower chest tube and PleurX. Less short of breath. Review of Systems: Constitutional- no fever. Cardiac- no chest pain. Pulmonary- as noted above. GI- no nausea, vomiting, diarrhea, melena, hematochezia. - no urinary symptoms. Otherwise, as noted above. Physical Exam Physical Exam: Constitutional- afebrile, no acute distress Eyes- sclerae anicteric Respiratory- decreased breath sounds left base, no respiratory distress; left- sided chest tube Cardiovascular- cardiac rhythm regular, no murmurs or gallops appreciated, no JVD, no pretibial edema or calf tenderness Gastrointestinal- normal bowel sounds, soft, nondistended, nontender Skin- warm and dry, no rash Psychiatric- alert, oriented Results & Data Vital Signs (Past 12 Hours) Vital Signs Temp Pulse Resp BP Pulse Ox 07/29/19 15:59 91 07/29/19 15:58 83 L 07/29/19 15:32 36.3 C L 101 H 20 118/77 94 Laboratory Results Laboratory Results - last 24 hr 07/29/19 07/29/19 07/29/19 08:13 12:14 17:11 POC Glucose 149 H 110 H 137 H 07/29/19 21:24 POC Glucose 148 H
[2019-07-29] MEDS: ACETAMINOPHEN 325 MG TAB PO PRN (23:14)
[2019-07-30] MEDS: ACETAMINOPHEN 325 MG TAB PO PRN ×2 (05:20→08:50)
[2019-07-30] MEDS: OXYCODONE HCL IR 5 MG TAB (IMMEDIATE RELEASE) PO PRN ×3 (05:20→18:11)
[2019-07-30] MEDS: OXYCODONE HCL 15 MG TABCR (OXYCONTIN) PO SCH (06:20)
--- NOTE | 2019-07-30 07:01 | XRay Report ---
XR chest 1V portable HISTORY: 38 years-old Male effusion follow-up study in a patient with left-sided pleural effusion COMPARISON: Chest radiograph 07/29/2019, chest CT 07/23/2019 TECHNIQUE: Portable AP view of the chest FINDINGS: Cardiac silhouette is enlarged, unchanged. Scattered bilateral reticular nodular opacities are redemo nstrated.. Stable appearance of the left pleural effusion with left midlung and left lung base opacit ies with associated left pleural thickening. Left-sided pleural drainage catheter is unchanged. Bones appear grossly intact. IMPRESSION: 1. Left-sided pleural drainage catheter redemonstrated with unchanged size of the left pleural effusi on. 2. Persistent left midlung and left lung base consolidation. 3. Bilateral pulmonary nodules redemonstrated compatible with patient's known metastatic disease. The above report was generated using voice recognition software. It may contain grammatical, syntax o r spelling errors. Electronically signed by: Calin Crump M.D. 07/30/2019 7:00 AM
[2019-07-30] MEDS ORDERED: ALTEPLASE, RECOMBINANT 1 MG/ML 2ML VIAL IPL ONE (08:30)
[2019-07-30] MEDS: GABAPENTIN 600 MG TAB PO SCH ×3 (08:47→21:29)
[2019-07-30] MEDS: INSULIN ASPART 100 UNITS/ML 3 ML PEN SC SCH ×4 (08:47→21:30)
[2019-07-30] MEDS: CELECOXIB 100 MG CAP PO SCH ×2 (08:47→17:08)
[2019-07-30] MEDS: INSULIN GLARGINE SOLOSTAR 100 UNITS/ML 3 ML PEN SC SCH ×2 (08:48→21:31)
[2019-07-30] MEDS: POLYETHYLENE (MIRALAX) 17 GM PACK PO SCH (08:50)
[2019-07-30] MEDS: DOCUSATE SODIUM 100 MG CAP PO SCH (08:50)
[2019-07-30] MEDS: CYCLOBENZAPRINE HCL 10 MG TAB PO PRN (10:59)
[2019-07-30] MEDS: ONDANSETRON INJ 2 MG/ML 2 ML VIAL IV PRN (13:02)
[2019-07-30] MEDS ORDERED: OXYCODONE HCL 20 MG TABCR (OXYCONTIN) PO SCH (17:00)
--- NOTE | 2019-07-30 18:52 | Progress Note ---
DATE: 07/30/2019 The patient was seen today on 07/30/2019 on postop day 6. The patient is definitely better. He still has a markedly abnormal chest x-ray, but he is on room air today. His pathology of course shows that he does have metastatic disease, which is not surprising. Our chest tube still draining the fair amount 450 mL and so we are not ready to remove this yet. His x-ray is unchanged. He sounds a bit better. His incisions are clean. I had a long talk about our expected discharge today. I still think he is draining too much and want to make sure his PleurX catheter is working properly.
[2019-07-30] MEDS: OXYCODONE HCL 20 MG TABCR (OXYCONTIN) PO SCH (20:13)
--- NOTE | 2019-07-30 20:34 | Hospitalist Progress Note ---
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 PleurX was not draining well. Pulmonary Medicine and Thoracic Surgery consulted. VATS performed and 2 chest tubes placed. Upper chest tube removed. Received TPA via PleurX. Chest tube management per Thoracic Surgery. 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 Received radiation therapy to metastatic lesion L3. Other management per Medical Oncology. Left-sided back pain (Acute) Experiencing left sciatica in L5 distribution. Recent CT lumbar spine demonstrated L3 met, multi-level disc disease, osteophytes, spinal stenosis. Plain films 07/28 did not show any changes. Most likely that sciatica secondary to non-malignant aspects of lumbar disease, probably L5 radicular disease from foraminal narrowing. Added celecoxib to analgesics and increased gabapentin. May need further evaluation / consultation if symptoms do not improve. Pain management (Chronic) Metastatic lesion L3. Also experiencing sciatica. Continue oxycodone SR, oxycodone IR. Increase gabapentin to 600 mg TID. Adding celecoxib. Diabetes mellitus type 2 (Chronic) Usually managed with metformin and empaglifozin. Oral agents being held. Receiving Lantus / NovoLog per protocl. FBS today = 135. Morbid obesity with BMI of 45.0-49.9, adult (Chronic) AHA diet. VTE prophylaxis Receiving SQ enoxaparin. Ambulate. Disposition Anticipated discharge to home. Internal Medicine follow-up with Dr. Black. Pulmonary Medicine [place] [facility] [place] Medical Oncology follow-up with Dr. Martinez. Subjective Recheck for multiple problems. Patient seen in their room around 1650. Wi visiting. Completed last session of course of radiation therapy to L3. Still experiencing low back pain with left sciatica. Oxy IR helps for a while. No benefit for Flexeril. No lower extremity weakness; no bowel or bladder dysfunction. Still has chest tube and PleurX. Receiving supplemental O2 via NC, but no SOB. Review of Systems: Constitutional- no fever. Cardiac- no chest pain. Pulmonary- as noted above. GI- no nausea, vomiting, diarrhea, melena, hematochezia. - no urinary symptoms. Otherwise, as noted above. Physical Exam Physical Exam: Constitutional- afebrile, no acute distress Eyes- sclerae anicteric Respiratory- decreased breath sounds left base, no respiratory distress; left- sided chest tube Cardiovascular- cardiac rhythm regular, no murmurs or gallops appreciated, no JVD, no pretibial edema or calf tenderness Gastrointestinal- normal bowel sounds, soft, nondistended, nontender Skin- warm and dry, no rash Psychiatric- alert, oriented Results & Data Vital Signs (Past 12 Hours) Vital Signs Temp Pulse Resp BP Pulse Ox Pulse Ox 07/30/19 15:45 94 07/30/19 15:12 36.8 C 84 20 144/85 H 94 Laboratory Results Laboratory Results - last 24 hr 07/29/19 07/30/19 07/30/19 21:24 08:15 12:11 POC Glucose 148 H 135 H 122 H 07/30/19 17:19 POC Glucose 112 H
[2019-07-30] MEDS: ENOXAPARIN INJ 40 MG/0.4 ML SYR SQ SCH (21:29)
[2019-07-31] MEDS: OXYCODONE HCL IR 5 MG TAB (IMMEDIATE RELEASE) PO PRN ×4 (00:14→19:34)
[2019-07-31] MEDS: ACETAMINOPHEN 325 MG TAB PO PRN ×3 (00:14→16:02)
[2019-07-31 06:08] LABS: Creatinine Clr Calc Pharmacy 210.5 ml/min; Est GFR (African American) 128.1; Est GFR (Non-African American) 110.5
[2019-07-31] MEDS: CELECOXIB 100 MG CAP PO SCH ×2 (08:54→17:02)
[2019-07-31] MEDS: GABAPENTIN 600 MG TAB PO SCH ×3 (08:54→22:01)
[2019-07-31] MEDS: INSULIN GLARGINE SOLOSTAR 100 UNITS/ML 3 ML PEN SC SCH ×2 (08:56→21:09)
[2019-07-31] MEDS: INSULIN ASPART 100 UNITS/ML 3 ML PEN SC SCH ×4 (08:56→21:11)
[2019-07-31] MEDS: OXYCODONE HCL 20 MG TABCR (OXYCONTIN) PO SCH ×2 (09:01→20:59)
[2019-07-31] MEDS: DOCUSATE SODIUM 100 MG CAP PO SCH (09:01)
[2019-07-31] MEDS: POLYETHYLENE (MIRALAX) 17 GM PACK PO SCH (09:01)
--- NOTE | 2019-07-31 10:00 | Pulmonology Progress Note ---
Date of Service July 31, 2019 Assessment & Plan (1) Pleural effusion: Impression: 38-year-old male with history of metastatic renal cell carcinoma and malignant left-sided pleural effusion. He failed outpatient Pleurx catheter placement is now status post decortication with chest tubes. Recommendation: 1. Malignant pleural effusion: Continue management of chest tubes per thoracic surgery. Hopefully outpatient management of the Pleurx will be successful in alleviating/mitigating recurrence of the pleural fluid and the patient's shortness of breath. 2. Hypoxemic respiratory failure: Resolving with resolution of pleural fluid. Continue to wean oxygen as tolerated. 3. Morbid obesity: Weight loss recommended 4. Metastatic renal cell carcinoma: Outpatient follow-up with medical oncology. He is receiving palliative radiation therapy to the back/spine. Outpatient urology follow-up also recommended. We will follow peripherally. Available to see over weekend if needed. Call if questions. (2) Multiple lung nodules on CT: Subjective Patient feels about the same. He is not having any significant chest pain. No significant shortness of breath. Drainage continues. Management of chest tubes per thoracic surgery. Review of Systems Review of Systems: Unchanged from prior Physical Exam Constitutional: WD/WN, vitals as above Neck: trachea midline, no thyromegaly Respiratory: normal respiratory effort, lungs clear to auscultation Cardiovascular: RRR, no murmur, no edema Gastrointestinal (Abdomen): normal bowel sounds, soft, nontender, no hepatosplenomegaly Results & Data Vital Signs (Past 12 Hours) Vital Signs Temp Pulse Pulse Resp BP Pulse Ox 07/31/19 07:30 36.5 C 97 H 20 127/80 92 07/30/19 22:53 36.7 C 107 H 20 112/71 91 PG Care Time/CCT Total # of Minutes Spent Total Time Spent with Patient: Total time spent is greater than 50% in coordination of care (as documented) at patient's floor/unit and/or counseling patient:
--- NOTE | 2019-07-31 13:36 | Progress Note ---
DATE: 07/31/2019 Kevan was seen today with his . He looks great. He is on room air. He feels better. He really wants to go home. At this point, his chest tube is simply draining too much. It has 605 mL over the last 24 hours. PleurX, however, is starting to drain a bit more at 75 mL. We did put some t-PA in that to make sure that it is patent. I am going to clamp his chest tube and see if our drainage goes up from the PleurX and if it does, we will let him go home after removing his chest tube. We will do that tomorrow at the earliest.
--- NOTE | 2019-07-31 15:18 | Hospitalist Progress Note ---
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 PleurX was not draining well. Pulmonary Medicine and Thoracic Surgery consulted. VATS performed and 2 chest tubes placed. Upper chest tube removed. Received TPA via PleurX. Chest tube management per Thoracic Surgery. 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 Completed course of radiation therapy to metastatic lesion L3. Other management per Medical Oncology. Left-sided back pain (Acute) Experiencing left sciatica in L5 distribution. Recent CT lumbar spine demonstrated L3 met, multi-level disc disease, osteophytes, spinal stenosis. Plain films 07/28 did not show any changes. Most likely that sciatica secondary to non-malignant aspects of lumbar disease, probably L5 radicular disease from foraminal narrowing. Added celecoxib to analgesics and increased gabapentin. Pain worse today. Check MRI. Pain management (Chronic) Metastatic lesion L3. Also experiencing severe sciatica. Increased gabapentin to 600 mg TID. Added celecoxib. Increase oxycodone SR to 20 mg BID. Continue oxy IR 10 mg q 6 hrs PRN. Diabetes mellitus type 2 (Chronic) Usually managed with metformin and empaglifozin. Oral agents being held. Receiving Lantus / NovoLog per protocl. FBS today = 170. Morbid obesity with BMI of 45.0-49.9, adult (Chronic) AHA diet. VTE prophylaxis Receiving SQ enoxaparin. Ambulate. Disposition Anticipated discharge to home. Internal Medicine follow-up with Dr. Balck. Pulmonary Medicine follow[place]up with [facility] [place]. Medical Oncology follow-up with Dr. Martinez. Subjective Recheck for multiple problems. Patient seen in their room around 1130. visiting. Still having significant output via standard chest tube and little output via PleurX. No significant SOB. Main complaint is ongoing severe left sciatic pain radiating down the anterolateral aspect of left thigh. Analgesics have not offered much benefit. Ambulating, albeit with difficulty. Review of Systems: Constitutional- no fever. Cardiac- no chest pain. Pulmonary- as noted above. GI- no nausea, vomiting, diarrhea, melena, hematochezia. - no urinary symptoms. Otherwise, as noted above. Physical Exam Physical Exam: Constitutional- afebrile, no acute distress Eyes- sclerae anicteric Respiratory- clear to auscultation, no respiratory distress Thorax- left chest tube draining serosanguinous fluid Cardiovascular- cardiac rhythm regular, no murmurs or gallops appreciated, no JVD, no pretibial edema or calf tenderness Gastrointestinal- normal bowel sounds, soft, nondistended, nontender Back- no lumbar or paralumbar tenderness; pain with left SLR 30 degrees Neuro- motor strength lower extremities 5/5; patellar reflexes 1/2 bilat; plantar reflexes downgoing bilat Skin- mildly diaphoretic after ambulating; warm, no rash Psychiatric- alert, oriented Results & Data Vital Signs (Past 12 Hours) Vital Signs Temp Pulse Resp BP Pulse Ox 07/31/19 07:30 36.5 C 97 H 20 127/80 92 Laboratory Results Laboratory Results - last 24 hr 07/30/19 07/30/19 07/31/19 17:19 20:37 05:20 Creatinine 0.85 Est Cr Clr Drug Dosing 210.5 Est GFR ( Amer) 128.1 Est GFR (Non-Af Amer) 110.5 POC Glucose 112 H 174 H 07/31/19 07/31/19 08:38 12:13 Creatinine Est Cr Clr Drug Dosing Est GFR ( Amer) Est GFR (Non-Af Amer) POC Glucose 170 H 113 H
[2019-07-31] MEDS ORDERED: GADOBUTROL 65ML VIAL IV PRN (15:23)
--- NOTE | 2019-07-31 15:38 | Magnetic Resonance Report ---
MR lumbar spine wo/w con CLINICAL HISTORY: 38 years-old Male with severe L sciatica; RCC with L3 met. Severe left-sided sciat ica. History of renal cell carcinoma with metastatic lesion of the L3 vertebral body COMPARISON: Lumbar spine radiographs 07/28/2019, CT abdomen and pelvis 07/11/2019, bone scan 07/13/2019 TECHNIQUE: Multiplanar, multi sequence MRI of the lumbar spine was performed both with and without th e use of 17.5 amount Gadavist FINDINGS: Enhancing mass of the inferior pole left kidney compatible with patient's known renal cell carcinoma. Marrow replacement at L3 with lytic expansile lesion redemonstrated. This involves the majority of t he vertebral body and erodes the posterior endplate. Enhancing mass of the vertebral body extends to the endplate into the anterior epidural tissues resulting in approximately 7 mm retropulsion. This re sults in central canal or neuroforaminal narrowing as described below. Enhancing mass also extends in to the left paraspinal musculature with marrow replacement extending into the left pedicle. No acute pathologic compression deformity. There are no additional suspicious lesions identified. There is enh ancement of the paraspinal musculature extending from L3 through L5, greatest on the left. Conus medullaris terminates at the L1 level. Signal within the imaged thoracic spinal cord and cauda equina appears unremarkable. T12-L1: No central canal or neural foraminal stenosis. L1-L2: No central canal or neural foraminal stenosis. L2-L3: No central canal or neural foraminal stenosis. L3-L4: Enhancing mass as above with resultant retropulsion causes mild central canal stenosis with m oderate to severe left lateral recess and severe left foraminal narrowing. The right neuroforamen is patent. L4-L5: Disc space narrowing with mild spondylitic spurring, moderate facet arthrosis and ligamentum flavum thickening. Posterior annular disc bulge with annular fissure and central disc protrusion flat tens the ventral thecal sac and results in moderate narrowing of the bilateral lateral recesses. Ther e is mild stenosis of the inferior neuroforamina bilaterally. Central canal is generally patent. L5-S1: Disc space narrowing with spondylitic spurring, moderate facet arthrosis and central/left par acentral disc protrusion. Flattening of the ventral thecal sac without significant central canal sten osis. Mild narrowing of the lateral recesses. Mild right and mild to moderate left foraminal stenosis . IMPRESSION: 1. Marrow replacement with enhancing lytic lesion at L3 as above is suggestive of metastatic disease. There is erosion through the posterior endplate of L3 with retropulsion/anterior epidural extension of approximately 7 mm. This causes mild central canal stenosis with moderate to severe left lateral r ecess and severe left foraminal narrowing. 2. Mild enhancement of the paraspinal musculature extending from L3 through L5, left greater than rig ht may be on a reactive basis. 3. Enhancing mass of the inferior pole left kidney compatible with patient's known renal cell carcino ma. 4. No additional metastatic lesions identified. The above report was generated using voice recognition software. It may contain grammatical, syntax o r spelling errors. Electronically signed by: Calin Crump M.D. 07/31/2019 3:36 PM
[2019-07-31] MEDS: ENOXAPARIN INJ 40 MG/0.4 ML SYR SQ SCH (21:12)
[2019-07-31] MEDS: dexAMETHasone 6 MG in SYRINGE 0 ML IV SCH (21:20)
[2019-08-01] MEDS: OXYCODONE HCL IR 5 MG TAB (IMMEDIATE RELEASE) PO PRN ×4 (00:12→21:43)
[2019-08-01] MEDS: ACETAMINOPHEN 325 MG TAB PO PRN (02:24)
[2019-08-01] MEDS ORDERED: HYDROmorphone INJ 0.5 MG/0.5 ML SYR IV STA (02:32)
--- NOTE | 2019-08-01 06:57 | XRay Report ---
XR chest 1V portable CLINICAL HISTORY: effusion COMPARISON STUDY: 07/30/2019 FINDINGS: The heart remains enlarged. There are diffuse bilateral reticulonodular opacities. There is a persistent left pleural effusion. There is slight improvement in the aeration of the left lower amos ng zone.[A left-sided chest tube is again evident. IMPRESSION: 1. Persistent bilateral nodularity, likely secondary to the patient's known metastatic disease 2. No change in position of the left basilar chest tube. Slight improvement in the aeration of the le ft lower lung zone. Persistent small left pleural effusion. Electronically signed by: Nabil Fox M.D. 08/01/2019 6:55 AM
[2019-08-01] MEDS: OXYCODONE HCL 20 MG TABCR (OXYCONTIN) PO SCH ×2 (09:03→21:32)
[2019-08-01] MEDS: dexAMETHasone 6 MG in SYRINGE 0 ML IV SCH ×4 (09:03→21:32)
[2019-08-01] MEDS: INSULIN GLARGINE SOLOSTAR 100 UNITS/ML 3 ML PEN SC SCH ×2 (09:04→21:32)
[2019-08-01] MEDS: CELECOXIB 100 MG CAP PO SCH ×2 (09:04→16:46)
[2019-08-01] MEDS: GABAPENTIN 600 MG TAB PO SCH ×3 (09:04→21:35)
[2019-08-01] MEDS: INSULIN ASPART 100 UNITS/ML 3 ML PEN SC SCH ×4 (09:09→21:33)
[2019-08-01] MEDS: DOCUSATE SODIUM 100 MG CAP PO SCH (09:24)
[2019-08-01] MEDS: POLYETHYLENE (MIRALAX) 17 GM PACK PO SCH (09:24)
--- NOTE | 2019-08-01 10:52 | Progress Note ---
DATE: 08/01/2019 Kevan was seen today on 08/01/2019. He looks great. His saturations are in the mid to high 90s. He is ambulating. We clamped his chest tube and drained his PleurX for about 75 mL today. I drained him and got some serous fluid, but it was not very much. I also unclamped his chest tube and he drained very little. His x-ray has not changed. He does have decreased breath sounds. All of his incisions are clean. I removed his chest tube at bedside, but left his PleurX in place. I am going to see him back in the office in 3 days on 08/04/2019. He can be discharged today. His already knows how to drain the PleurX and will drain it tomorrow and then I will see him back on Saturday. If we do not drain much and the x-ray is unchanged, I will pull his PleurX in the office on Saturday. I have instructed the patient to call me should he run into any issues.
--- NOTE | 2019-08-01 20:13 | Hospitalist Progress Note ---
Date of Service August 01, 2019 Assessment & Plan (1) Pleural effusion: Pleural effusion (Acute) Malignant left pleural effusion secondary to renal cell carcinoma. PleurX was was not draining well. Pulmonary Medicine and Thoracic Surgery consulted. VATS performed and 2 chest tubes placed.d. Received TPA via PleurX with improved drainage. Follow-up with Thoracic Surgery. 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 Completed course of radiation therapy to metastatic lesion L3. Other management per Medical Oncology. Left-sided back pain (Acute) Experiencing left sciatica in L3 distribution, worsening over past several days. MRI as noted above. MR images reviewed with Ortho Spine. May require surgical intervention at tertiary care center- discussions for possible transfer to [facility] underway. Continue analgesics and dexamethasone. Pain management (Chronic) Metastatic lesion L3. Also experiencing severe sciatica. Increased gabapentin to 600 mg TID. Added celecoxib. Increased oxycodone SR to 20 mg BID. Increased oxy IR to 15 mg q 4 hrs PRN. Diabetes mellitus type 2 (Chronic) Usually managed with metformin and empaglifozin. Oral agents being held. Receiving Lantus / NovoLog per protocol. FBS today = 148. Morbid obesity with BMI of 45.0-49.9, adult (Chronic) AHA diet. VTE prophylaxis Receiving SQ enoxaparin. Ambulate. Disposition Anticipated discharge to home. Internal Medicine follow-up with Dr. Black. Pulmonary Medicine follow-up with [facility]. Medical Oncology follow-up with Dr. Martinez. Subjective Recheck for multiple problems. PleurX output improved. Chest tube removed by Thoracic Surgery. No significant SOB. Main complaint is ongoing severe left sciatic pain radiating down the anterolateral aspect of left thigh. Pain is severe despite escalation of analgesics; essentially no pain when supine, but extremely severe upon standing and ambulation. Analgesics have not offered much benefit. Review of Systems: Constitutional- no fever. Cardiac- no chest pain. Pulmonary- as noted above. GI- no nausea, vomiting, diarrhea, melena, hematochezia. - no urinary symptoms. Otherwise, as noted above. Physical Exam Physical Exam: Constitutional- afebrile, no acute distress Eyes- sclerae anicteric Respiratory- decreased breath sounds left base Cardiovascular- cardiac rhythm regular, no murmurs or gallops appreciated, no JVD, no pretibial edema or calf tenderness Gastrointestinal- normal bowel sounds, soft, nondistended, nontender Back- no lumbar or paralumbar tenderness Neuro- motor strength lower extremities 5/5 Skin- warm & dry, no rash Psychiatric- alert, oriented Results & Data Vital Signs (Past 12 Hours) Vital Signs Temp Pulse Resp BP Pulse Ox 08/01/19 15:19 36.3 C L 80 18 142/81 H 94 Laboratory Results Laboratory Results - last 24 hr 07/31/19 08/01/19 08/01/19 21:03 08:23 12:08 POC Glucose 144 H 148 H 179 H 08/01/19 18:03 POC Glucose 181 H Diagnostic Findings MRI LUMBAR SPINE 07/31/19 IMPRESSION: 1. Marrow replacement with enhancing lytic lesion at L3 as above is suggestive of metastatic disease. There is erosion through the posterior endplate of L3 with retropulsion/anterior epidural extension of approximately 7 mm. This causes mild central canal stenosis with moderate to severe left lateral recess and severe left foraminal narrowing. 2. Mild enhancement of the paraspinal musculature extending from L3 through L5, left greater than right may be on a reactive basis. 3. Enhancing mass of the inferior pole left kidney compatible with patient's known renal cell carcinoma. 4. No additional metastatic lesions identified. The above report was generated using voice recognition software. It may contain grammatical, syntax or spelling errors. Electronically signed by: Calin Crump M.D. 07/31/2019 3:36 PM
[2019-08-01] MEDS: ENOXAPARIN INJ 40 MG/0.4 ML SYR SQ SCH (21:34)
[2019-08-02] MEDS ORDERED: HYDROmorphone INJ 0.5 MG/0.5 ML SYR IV STA (00:27)
--- NOTE | 2019-08-02 07:35 | Hospitalist Progress Note ---
Date of Service August 02, 2019 Assessment & Plan (1) Pleural effusion: Pleural effusion (Acute) Recently diagnosed renal cell carcinoma with left pleural effusion. Initial thoracentesis 07/10/19 negative for malignancy. Pleural effusion reaccumulated, so PleurX catheter placed on 07/14/19. Seen in Pulmonary Clinic 07/23 and found to have worsening pleural effusion. Readmitted for further evaluation and management. Pulmonary Medicine and Thoracic Surgery consulted. VATS performed 07/24/19 and 2 chest tubes placed. (note discussion below re: path) Received TPA via PleurX with improved drainage. Chest tubes removed. Respiratory status improved and no longer requiring supplemental O2. Ongoing PleurX management per Thoracic Surgery. 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 CT 07/09/19 demonstrated large left pleural effusion, multiple pulmonary nodules, 8.5 cm left renal mass, destructive lesion L3. CT LS spine 07/09/19 showed L3 3.5 cm lytic lesion with minimal epidural extension. Nuclear medicine bone scan 07/13/19 demonstrated L3 lesion, no other apparent skeletal mets. FNA left renal mass 07/15/19 demonstrated malignant cells consistent with renal cell carcinoma. VATS 07/24/19 demonstrated malignant pleural implants consistent with clear cell RCC. Management of malignant effusion as discussed above. Completed course of radiation therapy to metastatic lesion L3. Seen by Dr. Cochran for Urology consultation. Pros and cons of resection of primary tumor considered, but no final recommendations made thus far. Seen by Dr. Masterson for Medical Oncology management. Immunotherapy +/- chemotherapy anticipated. Left-sided back pain (Acute) Experiencing left sciatica in L3 distribution, worsening over past several days. Pain different than initial midline lumbar pain. Severe pain with standing or ambulation, despite oxycodone, gabapentin, celecoxib. MRI LUMBAR SPINE 07/31/19 IMPRESSION: 1. Marrow replacement with enhancing lytic lesion at L3 as above is suggestive of metastatic disease. There is erosion through the posterior endplate of L3 with retropulsion/anterior epidural extension of approximately 7 mm. This causes mild central canal stenosis with moderate to severe left lateral recess and severe left foraminal narrowing. 2. Mild enhancement of the paraspinal musculature extending from L3 through L5, left greater than right may be on a reactive basis. 3. Enhancing mass of the inferior pole left kidney compatible with patient's known renal cell carcinoma. 4. No additional metastatic lesions identified. The above report was generated using voice recognition software. It may contain grammatical, syntax or spelling errors. Electronically signed by: Calin Crump M.D. Started on IV dexamethasone with minimal improvement. MR images reviewed with Ortho Spine. May require surgical intervention at tertiary care center. Case discussed with Dr. Laureano- Orthopedics at [facility]. He reviewed images and offered to receive patient in transfer for further evaluation and management. Continue analgesics and dexamethasone. Pain management (Chronic) Metastatic lesion L3 as discussed above. Increased gabapentin to 600 mg TID. Added celecoxib. Increased oxycodone SR to 20 mg BID. Increased oxycodone IR to 15 mg q 4 hrs PRN. Diabetes mellitus type 2 (Chronic) Usually managed with metformin and empaglifozin. Oral agents being held. Blood sugars running higher since starting dexamethasone. Receiving Lantus / NovoLog per protocol. FBS today = 141. Morbid obesity with BMI of 45.0-49.9, adult (Chronic) AHA diet. VTE prophylaxis Receiving SQ enoxaparin- last dose at [facility] administered 08/01/19 @ 21:34. Ambulate as tolerated. Disposition Arrangements being made for transfer to [facility]. Internal Medicine follow-up with Dr. Black. Pulmonary Medicine follow-up with [facility]. Medical Oncology follow-up with Dr. Martinez. Dr. Gerald Martinez is on staff at [facility] and offered his availability if there are any questions regarding Oncology issues. Images CT LS spine 07/09/19 and MR LS spine 07/31/19 were transferred electronically to [facility] PACS 08/01/19 and should be available for viewing. Additional images (CT chest, CT abdomen and pelvis, last chest x-ray) will be copied to CD and accompany the patient to [facility]. Thank you for receiving this patient in transfer. Please call if you have any questions. Dorian Keren Subjective Recheck for multiple problems. Seen in his room around 10:20. visiting. Still having pain when standing or ambulating, radiating from buttock to anterolateral thigh. Minimal improvement since adding dexamethasone and increasing doses of oxycodone SR + oxycodone IR. Respiratory status since chest tube removed. No longer requiring supplemental O2. Review of Systems: Constitutional- no fever. Cardiac- no chest pain. Pulmonary- as noted above. GI- no nausea, vomiting, diarrhea, melena, hematochezia. - no urinary symptoms. Otherwise, as noted above. Physical Exam Physical Exam: Constitutional- afebrile, no acute distress Eyes- sclerae anicteric Respiratory- decreased breath sounds left base Cardiovascular- cardiac rhythm regular, no murmurs or gallops appreciated, no JVD, no pretibial edema or calf tenderness Gastrointestinal- normal bowel sounds, soft, nondistended, nontender Back- no lumbar or paralumbar tenderness Neuro- motor strength lower extremities essentially 5/5 (some limitation of left hip flexion due to pain); left patellar DTR 1/2, right patellar DTR 2/2; plantar reflexes downgoing Skin- warm & dry, no rash Psychiatric- alert, oriented Results & Data Vital Signs (Past 12 Hours) Vital Signs Temp Pulse Pulse Resp BP BP Pulse Ox 08/02/19 07:35 36.6 C 83 16 99/61 L 94 08/01/19 23:18 36.5 C 88 16 138/86 91 Laboratory Results Laboratory Results - last 24 hr 08/01/19 08/01/19 08/01/19 12:08 18:03 21:26 POC Glucose 179 H 181 H 252 H 08/02/19 08:27 POC Glucose 141 H
[2019-08-02] MEDS: OXYCODONE HCL 20 MG TABCR (OXYCONTIN) PO SCH ×2 (08:28→21:38)
[2019-08-02] MEDS: DOCUSATE SODIUM 100 MG CAP PO SCH (08:29)
[2019-08-02] MEDS: OXYCODONE HCL IR 5 MG TAB (IMMEDIATE RELEASE) PO PRN ×2 (08:29→16:08)
[2019-08-02] MEDS: POLYETHYLENE (MIRALAX) 17 GM PACK PO SCH (08:29)
[2019-08-02] MEDS: CELECOXIB 100 MG CAP PO SCH ×2 (08:31→16:09)
[2019-08-02] MEDS: GABAPENTIN 600 MG TAB PO SCH ×3 (08:31→21:39)
[2019-08-02] MEDS: dexAMETHasone 6 MG in SYRINGE 0 ML IV SCH ×4 (08:31→21:39)
[2019-08-02] MEDS: INSULIN ASPART 100 UNITS/ML 3 ML PEN SC SCH ×4 (08:36→21:46)
[2019-08-02] MEDS: INSULIN GLARGINE SOLOSTAR 100 UNITS/ML 3 ML PEN SC SCH ×2 (08:36→21:45)
--- NOTE | 2019-08-02 09:31 | Communication Note ---
Date of Service: August 02, 2019 Home Medications Jardiance 25 mg PO DAILY 06/28/19 [History Confirmed 07/23/19] cyclobenzaprine 10 mg PO TID PRN 07/09/19 [History Confirmed 07/23/19] gabapentin 300 mg PO TID 07/09/19 [History Confirmed 07/23/19] oxycodone 10 mg PO Q6 PRN #90 tab 07/20/19 [Rx Confirmed 07/23/19] oxycodone [OxyContin] 15 mg PO Q12H 30 Days #60 tab 07/20/19 [Rx Confirmed 07/23/19] metformin 1,000 mg tablet 1,000 mg PO BIDM tab 07/21/19 [History Confirmed 07/23/19] prochlorperazine maleate 5 mg tablet 5 mg PO Q8H PRN #30 tab 07/21/19 [Rx Confirmed 07/23/19] docusate sodium 100 mg PO DAILY 07/23/19 [History Confirmed 07/23/19] polyethylene glycol 3350 [Miralax] 17 g PO DAILY 07/23/19 [History Confirmed 07/23/19] levofloxacin 500 mg tablet 500 mg PO DAILY #10 tab 07/28/19 [Rx Confirmed 07/28/19] Active Medications Acetaminophen (Tylenol) 650 mg PO Q4H PRN PRN Reason: pain/fever Stop: 08/22/19 11:44 Last Admin: 08/01/19 02:24 Dose: 650 mg Documented by: Al Hydrox/Mg Hydrox/Simethicone (Maalox) 30 ml PO Q6H PRN PRN Reason: Dyspepsia Stop: 08/22/19 11:44 Celecoxib (Celebrex) 100 mg PO BIDM [facility] Stop: 08/28/19 16:59 Last Admin: 08/02/19 08:31 Dose: 100 mg Documented by: Cyclobenzaprine HCl (Flexeril) 10 mg PO TID PRN PRN Reason: Muscle Spasm Stop: 08/22/19 12:37 Last Admin: 07/30/19 10:59 Dose: 10 mg Documented by: Dextrose (Dextrose 50%) 25 - 50 ml IV UD PRN; Protocol PRN Reason: Hypoglycemia Protocol Stop: 08/22/19 11:50 Docusate Sodium (Colace) 100 mg PO DAILY [facility] Stop: 08/23/19 08:59 Last Admin: 08/02/19 08:29 Dose: 100 mg Documented by: Enoxaparin Sodium (Lovenox) 40 mg SQ QPM [facility] Stop: 08/27/19 20:59 Last Admin: 08/01/19 21:34 Dose: 40 mg Documented by: Gabapentin (Neurontin) 600 mg PO TID LISA Stop: 08/28/19 20:59 Last Admin: 08/02/19 08:31 Dose: 600 mg Documented by: Gadobutrol (Gadavist 65ml) 17.5 ml IV ONCE PRN PRN Reason: Interaction Checking Stop: 08/04/19 15:22 Last Admin: 07/31/19 15:23 Dose: 17.5 ml Documented by: Glucagon (Glucagen) 1 mg SQ UD PRN; Protocol PRN Reason: Hypoglycemia Protocol Stop: 08/22/19 11:50 Glucose (Dex4 Glucose) 4 - 8 tabs PO UD PRN; Protocol PRN Reason: Hypoglycemia Protocol Stop: 08/22/19 11:50 Glucose (Glucose 40%) 15 - 30 gm PO UD PRN; Protocol PRN Reason: Hypoglycemia Protocol Stop: 08/22/19 11:50 Dexamethasone 6 mg/ Syringe 1.5 mls @ 1 mls/min IV QID [facility]ISA Stop: 08/30/19 20:59 Last Admin: 08/02/19 08:31 Dose: 1 mls/min Documented by: Insulin Aspart (Novolog Flexpen) 0 units SC ACHS [facility] Stop: 08/22/19 16:29 Last Admin: 08/02/19 08:36 Dose: 8 units Documented by: Insulin Glargine (Lantus Solostar Pen) 0 units SC Q12 LISA; Protocol Stop: 08/22/19 20:59 Last Admin: 08/02/19 08:36 Dose: 5 units Documented by: Magnesium Hydroxide (Milk Of Magnesia) 30 ml PO Q6H PRN PRN Reason: Constipation Stop: 08/22/19 11:44 Miscellaneous (Carbohydrates For Hypoglycemia) 15 - 30 gm PO UD PRN PRN Reason: Hypoglycemia Treatment Stop: 08/22/19 11:50 Ondansetron HCl (Zofran) 4 mg IV Q6H PRN PRN Reason: Nausea Stop: 08/22/19 11:44 Last Admin: 07/30/19 13:02 Dose: 4 mg Documented by: Oxycodone HCl (Oxycontin) 20 mg PO Q12 LISA Stop: 08/13/19 20:59 Last Admin: 08/02/19 08:28 Dose: 20 mg Documented by: Oxycodone HCl (Roxicodone Immediate Rel) 15 mg PO Q4H PRN PRN Reason: Severe Pain Stop: 08/15/19 10:38 Last Admin: 08/02/19 08:29 Dose: 15 mg Documented by: Polyethylene Glycol (Miralax Powder Packet) 17 gm PO DAILY PRN PRN Reason: Constipation Stop: 08/22/19 11:44 Last Admin: 07/26/19 21:53 Dose: 17 gm Documented by: Polyethylene Glycol (Miralax Powder Packet) 17 gm PO DAILY [facility] Stop: 08/23/19 08:59 Last Admin: 08/02/19 08:29 Dose: 17 gm Documented by: Prochlorperazine (Compazine) 5 mg PO Q8H PRN PRN Reason: nausea Stop: 08/22/19 12:37
--- NOTE | 2019-08-02 09:42 | XRay Report ---
SINGLE VIEW CHEST CLINICAL HISTORY: Pleural effusion. FINDINGS: An AP, portable, upright chest radiograph is compared to study dated 08/01/2019 and correlate d with chest CT dated 07/23/2019. The examination is degraded by portable technique and patient rotati on. The heart is top normal for projection. A pleural drain is present at the left lung base. There is a small to moderate persistent pleural effusion with associated left basilar consolidation. A smal l pleural effusion is also seen on the right. There is evidence of multifocal pulmonary metastatic di sease, similar to previous. The pulmonary vasculature appears congested. No pneumothorax is seen. The bony thorax is grossly intact. IMPRESSION: 1. No significant change from yesterday. 2. A pleural drain is present at the left lung base. A small to moderate residual left pleural effusi on is unchanged with associated left basilar consolidation. 3. There is a small right pleural effusion. 4. The pulmonary vasculature appears congested. 5. Findings of multifocal pulmonary metastatic disease are again noted. Electronically signed by: Montez Mackenzie M.D. 08/02/2019 9:41 AM
--- NOTE | 2019-08-02 11:13 | Discharge Summary ---
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 Of significance patient was hospitalized in [facility] from 07/09 to 07/20/2019 secondary to back pain. Upon admission work-up patient was diagnosed with renal mass, large left pleural effusion and lytic lesion of lumbar spine concerning for metastasis. He underwent further work-up by pulmonology, urology and thoracic and was diagnosed with metastatic renal cell carcinoma by biopsy. Due to large pleural effusion he required thoracentesis with initially 3 L removed. Subsequently Pleurx catheter was placed by Dr. Lemus. Pleurx catheter been functioning well at discharge until 2 days ago when he noticed significant decrease in output. On 07/21 he had 500ml out put and past two days very scant output. The past 2 days has been having increased shortness of breath with exertion. Also of note during his r ecent hospitalization he was seen by radiation oncology in which she started palliative radiation to the lumbar spine which has improved his pain significantly. He was also placed on narcotic regimen for improved pain control. Currently complaints of shortness with exertion, but otherwise he offers no other complaints. Has been otherwise doing well after discharge. Denies fever, chills, sweats, lightheadedness, dizziness, chest pain, shortness breath at rest, emesis, abdominal pain, change in bowel or urinary habits. He does get nauseated with radiation and therefore takes Compazine 1 hour prior. He is currently on bowel regimen of Colace and MiraLAX daily to prevent opiate- induced constipation. Appetite has been otherwise diminished. is at bedside. Principal Diagnosis renal cell carcinoma left kidney, clear cell, metastases to spine, lung, pleura left pleural effusion, malignant lytic lesion L3 with severe left foraminal narrowing associated with severe radicular pain Discharge Data Allergies Allergy/AdvReac Type Severity Reaction Status Date / Time morphine Allergy Verified 07/23/19 09:27 Consultations 07/23/19 11:45 Consult Pulmonology Routine Consult Thoracic Surgery Routine 07/23/19 12:42 Consult Radiation Oncology Routine 08/01/19 20:13 Burn CD for patient Routine Procedures Performed Operation Date: 07/24/19 13:15 Actual Procedures p Left Video Assisted Thoracoscopy, limited decortication left lower lobe, limited pleurectomy, evacuation of pleural contents(Left) - Myles Lemus MD, FACS Ordered Studies 07/23/19 11:45 CT chest wo con Urgent 07/31/19 14:07 MR lumbar spine wo/w con Urgent Hospital Course (1) Pleural effusion: Pleural effusion (Acute) Recently diagnosed renal cell carcinoma with left pleural effusion. Initial thoracentesis 07/10/19 negative for malignancy. Pleural effusion reaccumulated, so PleurX catheter placed on 07/14/19. Seen in Pulmonary Clinic 07/23 and found to have worsening pleural effusion. Readmitted for further evaluation and management. Pulmonary Medicine and Thoracic Surgery consulted. VATS performed 07/24/19 and 2 chest tubes placed. (note discussion below re: path) Received TPA via PleurX with improved drainage. Chest tubes removed. Respiratory status improved and no longer requiring supplemental O2. Ongoing PleurX management per Thoracic Surgery. 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 CT 07/09/19 demonstrated large left pleural effusion, multiple pulmonary nodules, 8.5 cm left renal mass, destructive lesion L3. CT LS spine 07/09/19 showed L3 3.5 cm lytic lesion with minimal epidural extension. Nuclear medicine bone scan 07/13/19 demonstrated L3 lesion, no other apparent skeletal mets. FNA left renal mass 07/15/19 demonstrated malignant cells consistent with renal cell carcinoma. VATS 07/24/19 demonstrated malignant pleural implants consistent with clear cell RCC. Management of malignant effusion as discussed above. Completed course of radiation therapy to metastatic lesion L3. Seen by Dr. Cochran for Urology consultation. Pros and cons of resection of primary tumor considered, but no final recommendations made thus far. Seen by Dr. Masterson for Medical Oncology management. Immunotherapy +/- chemotherapy anticipated. Left-sided back pain (Acute) Experiencing left sciatica in L3 distribution, worsening over past several days. Pain different than initial midline lumbar pain. Severe pain with standing or ambulation, despite oxycodone, gabapentin, celecoxib. MRI LUMBAR SPINE 07/31/19 IMPRESSION: 1. Marrow replacement with enhancing lytic lesion at L3 as above is suggestive of metastatic disease. There is erosion through the posterior endplate of L3 with retropulsion/anterior epidural extension of approximately 7 mm. This causes mild central canal stenosis with moderate to severe left lateral recess and severe left foraminal narrowing. 2. Mild enhancement of the paraspinal musculature extending from L3 through L5, left greater than right may be on a reactive basis. 3. Enhancing mass of the inferior pole left kidney compatible with patient's known renal cell carcinoma. 4. No additional metastatic lesions identified. The above report was generated using voice recognition software. It may contain grammatical, syntax or spelling errors. Electronically signed by: Calin Crump M.D. Started on IV dexamethasone with minimal improvement. MR images reviewed with Ortho Spine. May require surgical intervention at tertiary care center. Case discussed with Dr. Laureano- Orthopedics at [facility]. He reviewed images and offered to receive patient in transfer for further evaluation and management. Continue analgesics and dexamethasone. Pain management (Chronic) Metastatic lesion L3 as discussed above. Increased gabapentin to 600 mg TID. Added celecoxib. Increased oxycodone SR to 20 mg BID. Increased oxycodone IR to 15 mg q 4 hrs PRN. Diabetes mellitus type 2 (Chronic) Usually managed with metformin and empaglifozin. Oral agents being held. Blood sugars running higher since starting dexamethasone. Receiving Lantus / NovoLog per protocol. FBS today = 141. Morbid obesity with BMI of 45.0-49.9, adult (Chronic) AHA diet. Difficult airway Please note in the event of any planned surgical procedures that pt has history of difficulty airway. VTE prophylaxis Receiving SQ enoxaparin- last dose at [facility] administered 08/01/19 @ 21:34. Ambulate as tolerated. Disposition Arrangements being made for transfer to [facility]. Internal Medicine follow-up with Dr. Black. Pulmonary Medicine follow-up with [facility]. Medical Oncology follow-up with Dr. Martinez. Dr. Gerald Martinez is on staff at [facility] and offered his availability if there are any questions regarding Oncology issues. Images CT LS spine 07/09/19 and MR LS spine 07/31/19 were transferred electronically to [facility] PACS 08/01/19 and should be available for viewing. Additional images (CT chest, CT abdomen and pelvis, last chest x-ray) will be copied to CD and accompany the patient to [facility]. Thank you for receiving this patient in transfer. Please call if you have any questions. Dorian Veliz Total Time Total Time Spent Total Time Spent (In Minutes): 60 Discharge Plan Discharge Items Patient Disposition: Transfer Acute Care Hospital Reason For Visit: renal cell carcinoma, pleural effusion, back pain Discharge Diagnosis: renal cell carcinoma, clear cell left kidney left pleural effusion back pain due to metastatic lesion L3 Condition: Fair Discharge Goals: Decrease discomfort and Improve disease control Activity: As commented below Activity Comment: as tolerated with care Lifting: No more than 5 pounds Non-emergency contact: Primary Care Provider, Hospitalist, Surgeon, Oncologist and Urologist Call non-emergency contact if: you have any medication questions, your symptoms worsen and your temperature is above 101 Follow-up/Referrals: Precious Angulo MD [Physician] - Myles Lemus MD, FACS [Surgeon] - Gilmar Cochran II, DO [Physician] - Terry Black MD [Primary Care Provider] - Gerald Martinez [Physician] - Diet: Carb Consistent or DM2 and Heart Healthy Addtl Provider Instructions: Home Medications Jardiance 25 mg PO DAILY 06/28/19 [History Confirmed 07/23/19] cyclobenzaprine 10 mg PO TID PRN 07/09/19 [History Confirmed 07/23/19] gabapentin 300 mg PO TID 07/09/19 [History Confirmed 07/23/19] oxycodone 10 mg PO Q6 PRN #90 tab 07/20/19 [Rx Confirmed 07/23/19] oxycodone [OxyContin] 15 mg PO Q12H 30 Days #60 tab 07/20/19 [Rx Confirmed 07/23/19] metformin 1,000 mg tablet 1,000 mg PO BIDM tab 07/21/19 [History Confirmed 07/23/19] prochlorperazine maleate 5 mg tablet 5 mg PO Q8H PRN #30 tab 07/21/19 [Rx Confirmed 07/23/19] docusate sodium 100 mg PO DAILY 07/23/19 [History Confirmed 07/23/19] polyethylene glycol 3350 [Miralax] 17 g PO DAILY 07/23/19 [History Confirmed 07/23/19] levofloxacin 500 mg tablet 500 mg PO DAILY #10 tab 07/28/19 [Rx Confirmed 07/28/19] Current Inpatient Medications Acetaminophen (Tylenol) 650 mg PO Q4H PRN PRN Reason: pain/fever Stop: 08/22/19 11:44 Last Admin: 08/01/19 02:24 Dose: 650 mg Documented by: Al Hydrox/Mg Hydrox/Simethicone (Maalox) 30 ml PO Q6H PRN PRN Reason: Dyspepsia Stop: 08/22/19 11:44 Celecoxib (Celebrex) 100 mg PO BIDM [facility] Stop: 08/28/19 16:59 Last Admin: 08/02/19 08:31 Dose: 100 mg Documented by: Cyclobenzaprine HCl (Flexeril) 10 mg PO TID PRN PRN Reason: Muscle Spasm Stop: 08/22/19 12:37 Last Admin: 07/30/19 10:59 Dose: 10 mg Documented by: Dextrose (Dextrose 50%) 25 - 50 ml IV UD PRN; Protocol PRN Reason: Hypoglycemia Protocol Stop: 08/22/19 11:50 Docusate Sodium (Colace) 100 mg PO DAILY [facility] Stop: 08/23/19 08:59 Last Admin: 08/02/19 08:29 Dose: 100 mg Documented by: Enoxaparin Sodium (Lovenox) 40 mg SQ QPM LISA Stop: 08/27/19 20:59 Last Admin: 08/01/19 21:34 Dose: 40 mg Documented by: Gabapentin (Neurontin) 600 mg PO TID LISA Stop: 08/28/19 20:59 Last Admin: 08/02/19 08:31 Dose: 600 mg Documented by: Gadobutrol (Gadavist 65ml) 17.5 ml IV ONCE PRN PRN Reason: Interaction Checking Stop: 08/04/19 15:22 Last Admin: 07/31/19 15:23 Dose: 17.5 ml Documented by: Glucagon (Glucagen) 1 mg SQ UD PRN; Protocol PRN Reason: Hypoglycemia Protocol Stop: 08/22/19 11:50 Glucose (Dex4 Glucose) 4 - 8 tabs PO UD PRN; Protocol PRN Reason: Hypoglycemia Protocol Stop: 08/22/19 11:50 Glucose (Glucose 40%) 15 - 30 gm PO UD PRN; Protocol PRN Reason: Hypoglycemia Protocol Stop: 08/22/19 11:50 Dexamethasone 6 mg/ Syringe 1.5 mls @ 1 mls/min IV QID LISA Stop: 08/30/19 20:59 Last Admin: 08/02/19 08:31 Dose: 1 mls/min Documented by: Insulin Aspart (Novolog Flexpen) 0 units SC ACHS [facility] Stop: 08/22/19 16:29 Last Admin: 08/02/19 08:36 Dose: 8 units Documented by: Insulin Glargine (Lantus Solostar Pen) 0 units SC Q12 LISA; Protocol Stop: 08/22/19 20:59 Last Admin: 08/02/19 08:36 Dose: 5 units Documented by: Magnesium Hydroxide (Milk Of Magnesia) 30 ml PO Q6H PRN PRN Reason: Constipation Stop: 08/22/19 11:44 Miscellaneous (Carbohydrates For Hypoglycemia) 15 - 30 gm PO UD PRN PRN Reason: Hypoglycemia Treatment Stop: 08/22/19 11:50 Ondansetron HCl (Zofran) 4 mg IV Q6H PRN PRN Reason: Nausea Stop: 08/22/19 11:44 Last Admin: 07/30/19 13:02 Dose: 4 mg Documented by: Oxycodone HCl (Oxycontin) 20 mg PO Q12 [facility] Stop: 08/13/19 20:59 Last Admin: 08/02/19 08:28 Dose: 20 mg Documented by: Oxycodone HCl (Roxicodone Immediate Rel) 15 mg PO Q4H PRN PRN Reason: Severe Pain Stop: 08/15/19 10:38 Last Admin: 08/02/19 08:29 Dose: 15 mg Documented by: Polyethylene Glycol (Miralax Powder Packet) 17 gm PO DAILY PRN PRN Reason: Constipation Stop: 08/22/19 11:44 Last Admin: 07/26/19 21:53 Dose: 17 gm Documented by: Polyethylene Glycol (Miralax Powder Packet) 17 gm PO DAILY [facility] Stop: 08/23/19 08:59 Last Admin: 08/02/19 08:29 Dose: 17 gm Documented by: Prochlorperazine (Compazine) 5 mg PO Q8H PRN PRN Reason: nausea Stop: 08/22/19 12:37 Thank you for receiving this patient in transfer. Please call if you have any questions. Dorian Veliz Prescriptions: Discontinued prochlorperazine maleate [Compazine] 5 mg tablet 5 mg PO Q8H PRN (Reason: nausea) Qty: 30 RF: 0 levofloxacin [Levaquin] 500 mg tablet 500 mg PO DAILY Qty: 10 RF: 0 metformin [Glucophage] 1,000 mg tablet 1,000 mg PO BIDM RF: 0 polyethylene glycol 3350 [Miralax] 17 gram powder in packet 17 g PO DAILY RF: 0 docusate sodium 100 mg capsule 100 mg PO DAILY RF: 0 Jardiance 25 mg tablet 25 mg PO DAILY RF: 0 cyclobenzaprine 10 mg tablet 10 mg PO TID PRN (Reason: Muscle Spasm) RF: 0 gabapentin 300 mg capsule 300 mg PO TID RF: 0 oxycodone 5 mg Tablet 10 mg PO Q6 PRN (Reason: pain) Qty: 90 RF: 0 oxycodone [OxyContin] 15 mg Tablet,Oral Only,Ext.Rel.12 Hr 15 mg PO Q12H 30 Days Qty: 60 RF: 0 Stand-Alone Forms: [facility] Discharge Orders: Discharge Order (Routine); Ordered 08/02/19 Ordered By: Dorian Veliz Admission Data Admit Date/Time: 07/23/19 11:10 Attending Provider: Dorian Veliz Admit Provider: Louann Mota Primary Care Provider: Terry Black Other Providers: Myles Lemus ; Precious Angulo ; Tyson Guzman ; Louann Mota Service: Medical Other Interventions: Discharge Summary Assessment (RN) Last Done: 08/02/19 11:21
--- NOTE | 2019-08-02 15:58 | Progress Note ---
DATE: 08/02/2019 The patient was seen today. I thought he was going to be discharged yesterday; however, he was kept in the hospital because of some spinal cord issues with his metastatic renal cell carcinoma. His x-ray really has not changed. I drained his PleurX for about 25 mL of serous fluid. For this reason, I removed it. The patient in a supine position, turned slightly to the right, I cut the suture, dissected out the fibrous cuff and removed the catheter. We placed an antimicrobial occlusive dressing on this. Discharge instructions were given. He is being transferred [place] and I have asked his to call our office when he gets out and we will follow him up.
[2019-08-02] MEDS: ENOXAPARIN INJ 40 MG/0.4 ML SYR SQ SCH (21:40)
[2019-08-03] MEDS: OXYCODONE HCL IR 5 MG TAB (IMMEDIATE RELEASE) PO PRN (00:42)
== END 2019-08-03 01:01 | disposition short-term general hospital (02) | DRG 981 ==
LOC: SUATTDRO 11:10 → 4W 11:10 → 3W 07-24 18:32
DX: Z88.5 Allergy status to narcotic agent; Z68.42 Body mass index [BMI] 45.0-49.9, adult; E66.01 Morbid (severe) obesity due to excess calories; J96.91 Respiratory failure, unspecified with hypoxia; C79.51 Secondary malignant neoplasm of bone; C78.00 Secondary malignant neoplasm of unspecified lung; T40.605A Adverse effect of unspecified narcotics, initial encounter; Z79.4 Long term (current) use of insulin; I10 Essential (primary) hypertension; Z79.891 Long term (current) use of opiate analgesic; E11.9 Type 2 diabetes mellitus without complications; Y92.009 Unspecified place in unspecified non-institutional (private) residence as the place of occurrence of the external cause; K59.03 Drug induced constipation; J91.0 Malignant pleural effusion; C78.2 Secondary malignant neoplasm of pleura; C64.2 Malignant neoplasm of left kidney, except renal pelvis